=== PATIENT | female | born 1940 | race Caucasian/White ===

== ENCOUNTER 2016-08-18 09:36 | Outpatient (CLI) | payer MEDICARE ==
[2016-08-18 10:01] LABS: #Basophils 0.1 thou/uL (0.0-0.2); #Eosinphils 0.2 thou/uL (0.0-0.7); #Lymphocytes 2.5 thou/uL (1.20-3.40); #Monocytes 0.4 thou/uL (0.11-0.59); #Neutrophils 3.7 thou/uL (1.40-6.50); %Eosinophils 2.6 % (0.0-10.0); %Lymphocytes 36.6 % (21.0-51.0); %Monocytes 6.1 % (0.0-10.0); %Neutrophils 53.6 % (42.0-75.0); Hemoglobin 13.6 g/dL (12.0-16.0); Mean Corpuscular HGB CONC 32.8 g/dL (32.0-36.0); Mean Corpuscular Hemoglobin 28.8 pg (27.0-31.0); Mean Corpuscular Volume 87.6 fl (81.0-99.0); Mean Platelet Volume 6.9 fL (7.4-10.4); Platelet Count 186 thou/uL (130-400); RBC Distribution Width 13.3 % (11.5-14.5); Red Blood Cell (RBC) Count 4.73 mill/uL (4.20-5.40); White Blood Cell (WBC) Count 6.9 thou/uL (4.8-10.8)
[2016-08-18 10:10] LABS: Hemoglobin A1c 7.1 % (4.0-6.0)
[2016-08-18 10:16] LABS: ALT (SGPT) 9 U/L (0-55); AST (SGOT) 14 U/L (5-34); Albumin 3.5 g/dL (3.4-4.8); Alkaline Phosphatase 64 U/L (40-150); Anion Gap 12 mmol/L (10-20); BUN (Urea Nitrogen) 17 mg/dL (9.8-20.1); Bilirubin, Total 0.5 mg/dL (0.2-1.2); Calc. Creatinine Clearance 0 mL/min (70-130); Calcium 9.2 mg/dL (7.8-10.44); Carbon Dioxide 29 mmol/L (23-31); Cardiac Risk 2.2 (Less than 4.5); Chloride 103 mmol/L (98-107); Cholesterol 155 mg/dL (< 200 Desired); Estimated GFR-MDRD 71; Globulin 3.1 g/dL (2.4-3.5); Glucose 245 mg/dL (83-110); HDL Cholesterol 71 mg/dL (>60 Neg Risk); LDL Cholesterol, Calculated 59 mg/dL; Potassium 4.1 mmol/L (3.5-5.1); Protein, Total 6.6 g/dL (5.8-8.1); Sodium 140 mmol/L (136-145); Triglycerides 125 mg/dL (Less than 150)
[2016-08-18 10:56] LABS: Free T4 (Free Thyroxine) 1.33 ng/dL (0.70-1.48); Vitamin D, 25 Hydroxy 37.2 ng/mL (> 30.0)
== END 2016-08-18 09:37 | disposition home or self-care (01) ==
LOC: MADLAB 09:36
PROVIDERS: ATTEND Internal Medicine Endocrinology, Diabetes & Metabolism
DX: E78.2 Mixed hyperlipidemia (principal); E03.9 Hypothyroidism, unspecified; E55.9 Vitamin D deficiency, unspecified; E11.69 Type 2 diabetes mellitus with other specified complication
CPT/HCPCS: 36415; 80053; 80061; 82306; 83036; 84439; 84443; 85025

== ENCOUNTER 2017-01-02 08:22 | Outpatient (CLI) | payer MEDICARE ==
[2017-01-02 09:25] LABS: Hemoglobin A1c 6.5 % (4.0-6.0)
[2017-01-02 09:26] LABS: #Basophils 0.1 thou/uL (0.0-0.2); #Eosinphils 0.2 thou/uL (0.0-0.7); #Lymphocytes 2.7 thou/uL (1.20-3.40); #Monocytes 0.4 thou/uL (0.11-0.59); #Neutrophils 2.5 thou/uL (1.40-6.50); %Basophils 1.3 % (0.0-1.0); %Eosinophils 3.4 % (0.0-10.0); %Lymphocytes 45.2 % (21.0-51.0); %Monocytes 7.2 % (0.0-10.0); %Neutrophils 42.9 % (42.0-75.0); Hemoglobin 13.4 g/dL (12.0-16.0); Mean Corpuscular Hemoglobin 29.7 pg (27.0-31.0); Mean Corpuscular Volume 92.7 fl (81.0-99.0); Mean Platelet Volume 7.6 fL (7.4-10.4); Platelet Count 203 thou/uL (130-400); RBC Distribution Width 11.6 % (11.5-14.5); Red Blood Cell (RBC) Count 4.52 mill/uL (4.20-5.40); White Blood Cell (WBC) Count 5.9 thou/uL (4.8-10.8)
[2017-01-02 09:36] LABS: ALT (SGPT) 11 U/L (8-55); AST (SGOT) 20 U/L (5-34); Albumin 3.6 g/dL (3.4-4.8); Alkaline Phosphatase 57 U/L (40-150); Anion Gap 14 mmol/L (10-20); BUN (Urea Nitrogen) 20 mg/dL (9.8-20.1); Bilirubin, Total 0.6 mg/dL (0.2-1.2); Calc. Creatinine Clearance 0 mL/min (70-130); Carbon Dioxide 28 mmol/L (23-31); Cardiac Risk 2.9 (Less than 4.5); Chloride 104 mmol/L (98-107); Cholesterol 121 mg/dl (< 200 Desired); Estimated GFR-MDRD 57; Globulin 3.6 g/dL (2.4-3.5); Glucose 101 mg/dL (83-110); HDL Cholesterol 42 mg/dL (>60 Neg Risk); LDL Cholesterol, Calculated 50 mg/dL; Potassium 4.4 mmol/L (3.5-5.1); Protein, Total 7.2 g/dL (6.0-8.3); Sodium 142 mmol/L (136-145); Triglycerides 145 mg/dL (Less than 150)
[2017-01-02 09:51] LABS: Free T4 (Free Thyroxine) 1.42 ng/dL (0.70-1.48); Thyroid Stimulating Hormone 0.2458 uIU/mL (0.35-4.94)
[2017-01-02 11:31] LABS: Vitamin D, 25 Hydroxy 53.8 ng/ml (> 30.0)
[2017-01-07 04:15] LABS: Endomysial IgA Autoabs Negative (Negative); Immunoglobulin A 401 mg/dL (64-422); t-Transglutaminase (TTG) IgA <2 U/mL (0-3)
== END 2017-01-02 08:23 ==
LOC: MADLAB 08:22
PROVIDERS: ATTEND Internal Medicine Endocrinology, Diabetes & Metabolism
DX: E78.2 Mixed hyperlipidemia (principal); E03.9 Hypothyroidism, unspecified; E55.9 Vitamin D deficiency, unspecified; E11.69 Type 2 diabetes mellitus with other specified complication; Z83.79 Family history of other diseases of the digestive system
CPT/HCPCS: 36415; 80053; 80061; 82306; 82784; 83036; 83516; 84439; 84443; 85025; 86255

== ENCOUNTER 2020-03-03 18:58 | Inpatient (IN) | payer MEDICARE ==
[2020-03-05] MEDS ORDERED: Acetaminophen 325 MG TAB PO PRN (17:06)
[2020-03-05] MEDS ORDERED: Dextrose 50% Abboject 50 ML SYRINGE SLOW IVP PRN (17:12)
[2020-03-05] MEDS: HumaLOG 300 UNITS/3 ML VIAL SC PRN (21:05)
[2020-03-05] MEDS: Gabapentin 300 MG CAP PO SCH (21:06)
[2020-03-05] MEDS: hydrOXYzine 25 MG TAB PO SCH (21:06)
--- NOTE | 2020-03-06 03:15 | HP ---
PRIMARY CARE PHYSICIAN: Steve Cash DO REASON FOR ADMISSION: For skilled rehabilitation at [facility] due to hypoglycemia resulting in acute metabolic encephalopathy and physical deconditioning. HISTORY OF PRESENT ILLNESS: The patient is a 79-year-old female with a history of diabetes type 2, coronary artery disease, status post stent placement, long-term insulin use, hypothyroidism, and urinary incontinence. The patient lives in her home with her , and she was brought to the emergency room by EMS due to altered mental status, abdominal pain, and nausea. The patient was discovered to have a glucose of 17 and received an amp of D50 and infusion of D10 at which point the glucose increased to over 200. The patient was subsequently admitted to the hospital. She initially got IV vancomycin and cefepime in the emergency room after initial concern for a potential sepsis picture. However, no focal source was identified, and the IV antibiotics were discontinued. The patient was continued on D50 and D10 NS IV fluids and mental status progressively improved back to normal. During hospitalization, her hemoglobin A1c on February 25 was noted to be 7.8. TSH was low at 0.0044 and a free T4 of 1.28. The patient prior to admission stated she was on insulin 75/25 mixture of 53 units in the morning and 42 units in the evening. The patient's hypoglycemia was noted to be most likely secondary to excessive insulin use and insulin was changed to 5 units of glargine and sliding scale Humalog. The patient progressively improved, and she was able to fully recover back to baseline mental status, and she was noted to be physically deconditioned and evaluated by Physical Therapy who recommended an inpatient acute rehabilitation to help the patient's strength and improvement prior to discharge back to her home as she lives with her elderly . The patient initially disagreed and wanted to be discharged home with home health, but she changed her mind after realizing that they would only be coming to her home for a limited amount of visits due to her current weakness. The decision was made in agreement with the patient's family to transfer to [facility] bed for skilled rehabilitation prior to discharge back to her home. Upon evaluation of the patient today, she was happy to be in facility. Her daughter was visiting her during my evaluation, and the patient was excited to start therapy and states she was wheelchair bound prior to hospitalization, but her goal in rehab is to be able to get out of wheelchair. The patient also complains of chronic history of urinary incontinence. She said she has had a history of 2 bladder surgeries. They were not successful, so she does not want to go back to her past urologist, and she wants it taken care of. I politely explained to the patient that during this rehabilitation process, that might not be accomplished and the patient would be advised to follow up with a new urologist as an outpatient by recommendation of her primary care physician, Dr. Steve Cash. PAST MEDICAL HISTORY: Diabetes type 2, insulin requiring, diagnosed in her 20s per the patient. Coronary artery disease, status post cardiac stent placement. Urinary incontinence, hypertension, hyperlipidemia, hypothyroidism, peripheral neuropathy. PAST SURGICAL HISTORY: Status post right knee surgery, status post ear surgery, status post cardiac stent placement, status post hysterectomy, status post appendectomy, status post 2 bladder surgeries per patient. PAST CODE STATUS: The patient is a full code. ALLERGIES: CODEINE, MORPHINE, AND PENICILLIN. MEDICATIONS: Ranolazine (Ranexa) 1000 b.i.d., gabapentin 300 q.h.s., Lantus 5 units daily, Humalog sliding scale mild p.r.n., Imdur ER 30 daily, levothyroxine 100 daily, Cozaar 50 mg daily, metoprolol 50 mg daily, Myrbetriq 25 mg ER daily, Crestor 50 mg daily, Zofran 4 mg q.6 h. p.r.n. nausea and vomiting, hydroxyzine 25 t.i.d. REVIEW OF SYSTEMS: CONSTITUTIONAL: Negative for weight loss, weight gain. Positive for generalized weakness. SKIN: Negative for rash or itching. EYES: Negative for double vision or pain. ENT: Negative for nosebleed, pain, tenderness ENT. CARDIOVASCULAR: Negative for chest pain, palpitation, shortness of breath on exertion, or orthopnea. RESPIRATORY: Negative for shortness of breath, cough, wheezing, hemoptysis. GASTROINTESTINAL: Positive for nausea. Negative for abdominal pain, diarrhea, or constipation. GENITOURINARY: Positive for urinary incontinence. Negative for burning, nocturia, or hematuria. MUSCULOSKELETAL: Negative for pain and swelling. NEUROLOGICAL: The patient complains of gait instability and generalized weakness. PSYCHIATRY: Negative for hallucination or delusions. PHYSICAL EXAMINATION: VITAL SIGNS: Temperature 97.5, pulse 57, respirations 19, blood pressure 156/53, O2 saturation 100% on room air. GENERAL: The patient is alert, awake, and oriented x3. She is very talkative, and she is in no apparent distress, sitting by the side of her bed with her daughter visiting her. HEENT: Pupils round, equal, reactive to light and accommodation. Extraocular muscles are intact. No scleral icterus. No conjunctival injection. Nares are patent. Oral mucous membrane moist. NECK: Supple. No JVD. No adenopathy. No thyromegaly or bruit. CHEST: Clear to auscultation bilaterally. CARDIOVASCULAR: S1 and S2 without any murmurs, gallops, or rubs. ABDOMEN: Positive bowel sounds. Soft, nontender, nondistended. No rebound. No guarding. EXTREMITIES: No edema or swelling. Capillary refill less than 2 seconds. NEUROLOGIC: Cranial nerves 2 through 12 grossly intact. Gait instability and slow. ASSESSMENT: 1. Physical deconditioning. 2. Diabetes type 2, requiring insulin. 3. Hypothyroidism. 4. Hypertension. 5. Generalized weakness. 6. Gait instability. 7. Urinary incontinence. PLAN: The patient is a 79-year-old female being admitted to [facility]. We will consult Physical Therapy and Occupational Therapy to help with activities of daily living. We will consult Physical Therapy for strengthening, gait, balance, and improved help with ambulation. We will resume all patient's home medications. We will do Accu-Cheks a.c. and h.s. We will place the patient on mild sliding scale and continue on Lantus 5 units b.i.d. adjust accordingly. We will educate the patient on the status of her diabetes. We will monitor the patient closely. We will place the patient on GI prophylaxis with Pepcid b.i.d. and DVT prophylaxis with SCDs. We will encourage the patient to help at least getting to goals and plan of care. ESTIMATED LENGTH OF STAY: Two to three weeks. Job ID: [id number] [facility]
[2020-03-06] MEDS: Levothyroxine Sodium 100 MCG TAB PO SCH (05:15)
[2020-03-06] MEDS: Losartan 25 MG TAB PO SCH (08:47)
[2020-03-06] MEDS: Metoprolol Tartrate 50 MG TAB PO SCH (08:47)
[2020-03-06] MEDS: hydrOXYzine 25 MG TAB PO SCH ×3 (08:47→20:21)
[2020-03-06] MEDS: Lantus 1000 UNITS/10 ML VIAL SC SCH (08:48)
[2020-03-06] MEDS: Famotidine 20 MG TAB PO SCH (08:48)
[2020-03-06] MEDS: HumaLOG 300 UNITS/3 ML VIAL SC PRN ×2 (12:00→18:02)
[2020-03-06] MEDS: Ondansetron ODT 4 MG TAB PO PRN (14:33)
[2020-03-06] MEDS: Gabapentin 300 MG CAP PO SCH (20:21)
[2020-03-06] MEDS: Rosuvastatin 10 MG TAB PO SCH ×2 (20:26→20:27)
[2020-03-06] MEDS: Bisacodyl 5 MG TAB PO PRN (21:19)
[2020-03-07] MEDS: Levothyroxine Sodium 100 MCG TAB PO SCH (05:41)
[2020-03-07] MEDS: Famotidine 20 MG TAB PO SCH (08:58)
[2020-03-07] MEDS: hydrOXYzine 25 MG TAB PO SCH ×3 (08:58→20:02)
[2020-03-07] MEDS: Metoprolol Tartrate 50 MG TAB PO SCH (08:59)
[2020-03-07] MEDS: Losartan 25 MG TAB PO SCH (08:59)
[2020-03-07] MEDS: Lantus 1000 UNITS/10 ML VIAL SC SCH (09:00)
[2020-03-07] MEDS: HumaLOG 300 UNITS/3 ML VIAL SC PRN ×2 (12:29→20:30)
[2020-03-07] MEDS: Rosuvastatin 10 MG TAB PO SCH (20:02)
[2020-03-07] MEDS: Gabapentin 300 MG CAP PO SCH (20:02)
[2020-03-08] MEDS: Levothyroxine Sodium 100 MCG TAB PO SCH (06:56)
[2020-03-08] MEDS: Losartan 25 MG TAB PO SCH (08:32)
[2020-03-08] MEDS: hydrOXYzine 25 MG TAB PO SCH ×3 (08:32→20:02)
[2020-03-08] MEDS: Lantus 1000 UNITS/10 ML VIAL SC SCH (08:32)
[2020-03-08] MEDS: Famotidine 20 MG TAB PO SCH (08:32)
[2020-03-08] MEDS: Metoprolol Tartrate 50 MG TAB PO SCH (08:33)
[2020-03-08] MEDS: HumaLOG 300 UNITS/3 ML VIAL SC PRN (12:35)
[2020-03-08] MEDS: Gabapentin 300 MG CAP PO SCH (20:02)
[2020-03-08] MEDS: Rosuvastatin 10 MG TAB PO SCH (20:02)
[2020-03-09] MEDS: Levothyroxine Sodium 100 MCG TAB PO SCH (05:39)
[2020-03-09] MEDS ORDERED: Losartan 25 MG TAB ONE (07:29)
[2020-03-09] MEDS: Losartan 25 MG TAB PO SCH (08:26)
[2020-03-09] MEDS: Famotidine 20 MG TAB PO SCH (08:26)
[2020-03-09] MEDS: hydrOXYzine 25 MG TAB PO SCH ×3 (08:26→20:00)
[2020-03-09] MEDS: Metoprolol Tartrate 50 MG TAB PO SCH (08:26)
[2020-03-09] MEDS: Lantus 1000 UNITS/10 ML VIAL SC SCH (08:27)
[2020-03-09] MEDS: HumaLOG 300 UNITS/3 ML VIAL SC PRN ×2 (13:29→17:01)
[2020-03-09] MEDS: Gabapentin 300 MG CAP PO SCH (20:00)
[2020-03-09] MEDS: Rosuvastatin 10 MG TAB PO SCH (20:01)
[2020-03-10] MEDS: Levothyroxine Sodium 100 MCG TAB PO SCH (06:08)
[2020-03-10] MEDS: Losartan 25 MG TAB PO SCH (09:03)
[2020-03-10] MEDS: Metoprolol Tartrate 50 MG TAB PO SCH (09:04)
[2020-03-10] MEDS: Famotidine 20 MG TAB PO SCH (09:04)
[2020-03-10] MEDS: hydrOXYzine 25 MG TAB PO SCH ×3 (09:04→20:19)
[2020-03-10] MEDS: Lantus 1000 UNITS/10 ML VIAL SC SCH (09:05)
[2020-03-10] MEDS: HumaLOG 300 UNITS/3 ML VIAL SC PRN ×2 (12:09→17:09)
[2020-03-10] MEDS: Bisacodyl 5 MG TAB PO PRN (20:19)
[2020-03-10] MEDS: Gabapentin 300 MG CAP PO SCH (20:20)
[2020-03-10] MEDS: Rosuvastatin 10 MG TAB PO SCH (20:22)
[2020-03-11] MEDS: Levothyroxine Sodium 100 MCG TAB PO SCH (05:48)
[2020-03-11] MEDS: Losartan 25 MG TAB PO SCH (09:20)
[2020-03-11] MEDS: Famotidine 20 MG TAB PO SCH (09:20)
[2020-03-11] MEDS: hydrOXYzine 25 MG TAB PO SCH ×3 (09:20→20:41)
[2020-03-11] MEDS: Metoprolol Tartrate 50 MG TAB PO SCH (09:21)
[2020-03-11] MEDS: Lantus 1000 UNITS/10 ML VIAL SC SCH (09:22)
[2020-03-11] MEDS: HumaLOG 300 UNITS/3 ML VIAL SC PRN ×2 (12:05→17:03)
[2020-03-11] MEDS: Gabapentin 300 MG CAP PO SCH (20:41)
[2020-03-11] MEDS: Rosuvastatin 10 MG TAB PO SCH (20:41)
[2020-03-12] MEDS: Levothyroxine Sodium 100 MCG TAB PO SCH (06:00)
[2020-03-12] MEDS: Famotidine 20 MG TAB PO SCH (07:56)
[2020-03-12] MEDS: hydrOXYzine 25 MG TAB PO SCH ×3 (07:57→19:44)
[2020-03-12] MEDS: Losartan 25 MG TAB PO SCH (07:57)
[2020-03-12] MEDS: Metoprolol Tartrate 50 MG TAB PO SCH (07:58)
[2020-03-12] MEDS: Lantus 1000 UNITS/10 ML VIAL SC SCH (07:58)
[2020-03-12] MEDS: HumaLOG 300 UNITS/3 ML VIAL SC PRN ×2 (13:38→21:03)
[2020-03-12] MEDS: Gabapentin 300 MG CAP PO SCH (19:44)
[2020-03-12] MEDS: Rosuvastatin 10 MG TAB PO SCH (19:45)
[2020-03-13] MEDS: Levothyroxine Sodium 100 MCG TAB PO SCH (05:59)
[2020-03-13 06:23] LABS: Albumin 2.9 g/dL (3.4-4.8); Calcium 8.6 mg/dL (7.8-10.44); Chloride 104 mmol/L (98-107); Globulin 2.6 g/dL (2.4-3.5); Glucose 132 mg/dL (83-110); Potassium 4.3 mmol/L (3.5-5.1); Protein, Total 5.5 g/dL (6.0-8.3); Sodium 144 mmol/L (136-145)
[2020-03-13 06:31] LABS: #Basophils 0.1 thou/uL (0.0-0.2); #Eosinphils 0.3 thou/uL (0.0-0.7); #Monocytes 0.3 thou/uL (0.11-0.59); #Neutrophils 2.7 thou/uL (1.40-6.50); %Basophils 1.7 % (0.0-1.0); %Eosinophils 4.4 % (0.0-10.0); %Monocytes 6.3 % (0.0-10.0); %Neutrophils 50.7 % (42.0-75.0); Hemoglobin 10.8 g/dL (12.0-16.0); Mean Corpuscular HGB CONC 32.2 g/dL (32.0-36.0); Mean Corpuscular Hemoglobin 29.5 pg (27.0-31.0); Mean Corpuscular Volume 91.8 fL (78.0-98.0); Mean Platelet Volume 8.5 fL (7.4-10.4); Platelet Count 117 thou/uL (130-400); Platelet Morphology Comment Appears Decreased; RBC Distribution Width 13.3 % (11.5-14.5); RBC Morphology Normal; White Blood Cell (WBC) Count 5.4 thou/uL (4.8-10.8)
[2020-03-13 06:32] LABS: MDiff Complete? YES
[2020-03-13 07:44] LABS: ALT (SGPT) 10 U/L (8-55); AST (SGOT) 15 U/L (5-34); Alkaline Phosphatase 51 U/L (40-110); BUN (Urea Nitrogen) 13 mg/dL (9.8-20.1); Bilirubin, Total 0.7 mg/dL (0.2-1.2); Calc. Creatinine Clearance 64 mL/min (70-130); Carbon Dioxide 30 mmol/L (23-31); Estimated GFR-MDRD 68
[2020-03-13 07:45] LABS: Anion Gap 14 mmol/L (10-20); Magnesium 1.4 mg/dL (1.6-2.6)
[2020-03-13] MEDS: hydrOXYzine 25 MG TAB PO SCH ×3 (07:54→19:38)
[2020-03-13] MEDS: Famotidine 20 MG TAB PO SCH (07:55)
[2020-03-13] MEDS: Lantus 1000 UNITS/10 ML VIAL SC SCH (07:55)
[2020-03-13] MEDS: Losartan 25 MG TAB PO SCH (07:55)
[2020-03-13] MEDS: Metoprolol Tartrate 50 MG TAB PO SCH (07:55)
[2020-03-13] MEDS: Ondansetron ODT 4 MG TAB PO PRN ×2 (12:05→17:53)
[2020-03-13] MEDS ORDERED: Magnesium Oxide 400 MG TAB PO SCH (14:45)
[2020-03-13] MEDS: Rosuvastatin 10 MG TAB PO SCH (19:36)
[2020-03-13] MEDS: Gabapentin 300 MG CAP PO SCH (19:38)
[2020-03-14] MEDS: Levothyroxine Sodium 88 MCG TAB PO SCH (05:14)
[2020-03-14] MEDS: Famotidine 20 MG TAB PO SCH (08:14)
[2020-03-14] MEDS: hydrOXYzine 25 MG TAB PO SCH ×3 (08:14→20:58)
[2020-03-14] MEDS: Metoprolol Tartrate 50 MG TAB PO SCH (08:14)
[2020-03-14] MEDS: Magnesium Oxide 400 MG TAB PO SCH (08:15)
[2020-03-14] MEDS: Losartan 25 MG TAB PO SCH (08:15)
[2020-03-14] MEDS: Lantus 1000 UNITS/10 ML VIAL SC SCH (08:16)
[2020-03-14] MEDS: Ondansetron ODT 4 MG TAB PO PRN ×2 (11:19→20:09)
[2020-03-14] MEDS: HumaLOG 300 UNITS/3 ML VIAL SC PRN ×2 (12:42→18:01)
[2020-03-14] MEDS: Gabapentin 300 MG CAP PO SCH (20:57)
[2020-03-14] MEDS: Rosuvastatin 10 MG TAB PO SCH (20:59)
[2020-03-15] MEDS: Levothyroxine Sodium 88 MCG TAB PO SCH (06:02)
[2020-03-15] MEDS: Ondansetron ODT 4 MG TAB PO PRN ×2 (08:14→20:47)
[2020-03-15] MEDS: hydrOXYzine 25 MG TAB PO SCH ×3 (11:17→20:50)
[2020-03-15] MEDS: Famotidine 20 MG TAB PO SCH ×2 (11:17→14:23)
[2020-03-15] MEDS: Metoprolol Tartrate 50 MG TAB PO SCH ×2 (11:18→14:24)
[2020-03-15] MEDS: Losartan 25 MG TAB PO SCH ×2 (11:18→14:23)
[2020-03-15] MEDS: Lantus 1000 UNITS/10 ML VIAL SC SCH ×2 (11:18→14:26)
[2020-03-15] MEDS: Magnesium Oxide 400 MG TAB PO SCH ×2 (11:18→14:24)
[2020-03-15] MEDS: Bisacodyl 5 MG TAB PO PRN (14:23)
[2020-03-15] MEDS ORDERED: Zolpidem Tartrate 5 MG TAB PO PRN (16:56)
[2020-03-15] MEDS: HumaLOG 300 UNITS/3 ML VIAL SC PRN (17:11)
[2020-03-15] MEDS: Gabapentin 300 MG CAP PO SCH (20:49)
[2020-03-15] MEDS: Rosuvastatin 10 MG TAB PO SCH (20:50)
[2020-03-15] MEDS: Promethazine 25 MG TAB PO SCH (21:49)
--- NOTE | 2020-03-15 23:32 | RAD ---
Exam: 1 view abdomen HISTORY: Emesis. FINDINGS: Atherosclerosis of a nonaneurysmal aorta Nonspecific bowel gas pattern. No suspicious densities in the abdomen or pelvis. No pneumoperitoneum on supine projection. No acute osseous abnormalities. IMPRESSION: Nonspecific bowel gas pattern. Additional imaging as warranted.
[2020-03-16] MEDS: Promethazine 25 MG TAB PO PRN (03:35)
[2020-03-16] MEDS: Levothyroxine Sodium 88 MCG TAB PO SCH (05:07)
[2020-03-16] MEDS: Metoprolol Tartrate 50 MG TAB PO SCH (09:23)
[2020-03-16] MEDS: Famotidine 20 MG TAB PO SCH (09:23)
[2020-03-16] MEDS: Lantus 1000 UNITS/10 ML VIAL SC SCH (09:24)
[2020-03-16] MEDS: Losartan 25 MG TAB PO SCH (09:24)
[2020-03-16] MEDS: hydrOXYzine 25 MG TAB PO SCH ×2 (09:24→15:21)
[2020-03-16] MEDS: Magnesium Oxide 400 MG TAB PO SCH (09:24)
--- NOTE | 2020-03-16 12:32 | CT ---
CT ABDOMEN AND PELVIS PERFORMED WITH CONTRAST ENHANCEMENT: HISTORY: Abdominal pain, nausea, and vomiting. History of appendectomy and hysterectomy. FINDINGS: There are small bilateral pleural effusions. There is linear change in the lung bases which could re present scarring. No confluent infiltrative process. Fatty change of the liver. The spleen, pancreas, and gallbladder regions appear unremarkable. The g allbladder is mildly distended. Right and left adrenal glands and right and left kidneys are normal in size. There is no significant periaortic or mesenteric adenopathy. Extensive atherosclerotic change within a normal caliber aorta . CT OF PELVIS PERFORMED WITH CONTRAST ENHANCEMENT: The bladder is distended. No adenopathy, mass, or free fluid. No inflammatory change. Diffuse muscle atrophy is noted. There are arthritic changes of the spine. Compression changes, age indeterminate, of the T12 vertebral body are noted. This was noted on previous exams. IMPRESSION: 1. Small bilateral pleural effusions with linear change in the bases suggestive of scar. 2. Fatty change of the liver. 3. No acute intraabdominal abnormalities. POS: SOREN
[2020-03-16] MEDS: Gabapentin 300 MG CAP PO SCH (20:45)
[2020-03-16] MEDS: Rosuvastatin 10 MG TAB PO SCH (20:47)
[2020-03-17] MEDS: Levothyroxine Sodium 88 MCG TAB PO SCH (06:24)
[2020-03-17] MEDS: Famotidine 20 MG TAB PO SCH (09:31)
[2020-03-17] MEDS: Magnesium Oxide 400 MG TAB PO SCH (09:31)
[2020-03-17] MEDS: Losartan 25 MG TAB PO SCH (09:31)
[2020-03-17] MEDS: Metoprolol Tartrate 50 MG TAB PO SCH (09:32)
[2020-03-17] MEDS: Lantus 1000 UNITS/10 ML VIAL SC SCH (09:38)
[2020-03-17] MEDS: Ondansetron ODT 4 MG TAB PO PRN (12:03)
[2020-03-17] MEDS: HumaLOG 300 UNITS/3 ML VIAL SC PRN ×2 (12:04→17:13)
[2020-03-17] MEDS: Promethazine 25 MG TAB PO PRN (19:52)
[2020-03-17] MEDS: Rosuvastatin 10 MG TAB PO SCH (21:07)
[2020-03-17] MEDS: Gabapentin 300 MG CAP PO SCH (21:09)
[2020-03-17] MEDS: hydrOXYzine 25 MG TAB PO SCH (21:10)
[2020-03-18] MEDS: Levothyroxine Sodium 88 MCG TAB PO SCH (05:01)
[2020-03-18] MEDS: Magnesium Oxide 400 MG TAB PO SCH (08:24)
[2020-03-18] MEDS: Losartan 25 MG TAB PO SCH (08:24)
[2020-03-18] MEDS: Famotidine 20 MG TAB PO SCH (08:25)
[2020-03-18] MEDS: Lantus 1000 UNITS/10 ML VIAL SC SCH (08:25)
[2020-03-18] MEDS: Metoprolol Tartrate 50 MG TAB PO SCH (08:25)
[2020-03-18] MEDS: Ondansetron ODT 4 MG TAB PO PRN (13:06)
[2020-03-18] MEDS: Promethazine 25 MG TAB PO PRN (17:17)
[2020-03-19] MEDS: Ondansetron ODT 4 MG TAB PO PRN ×2 (00:21→09:00)
[2020-03-19] MEDS: Gabapentin 300 MG CAP PO SCH ×2 (00:24→20:25)
[2020-03-19] MEDS: hydrOXYzine 25 MG TAB PO SCH ×2 (00:24→20:25)
[2020-03-19] MEDS: Rosuvastatin 10 MG TAB PO SCH ×2 (00:25→20:25)
[2020-03-19] MEDS: Levothyroxine Sodium 88 MCG TAB PO SCH (05:29)
[2020-03-19 07:47] LABS: #Basophils 0.1 thou/uL (0.0-0.2); #Lymphocytes 2.4 thou/uL (1.20-3.40); #Monocytes 0.5 thou/uL (0.11-0.59); #Neutrophils 3.8 thou/uL (1.40-6.50); %Basophils 0.8 % (0.0-1.0); %Eosinophils 0.5 % (0.0-10.0); %Lymphocytes 34.5 % (21.0-51.0); %Monocytes 7.6 % (0.0-10.0); %Neutrophils 56.5 % (42.0-75.0); Hemoglobin 11.6 g/dL (12.0-16.0); Mean Corpuscular HGB CONC 30.8 g/dL (32.0-36.0); Mean Corpuscular Hemoglobin 28.4 pg (27.0-31.0); Mean Corpuscular Volume 92.2 fL (78.0-98.0); Mean Platelet Volume 7.7 fL (7.4-10.4); Platelet Count 191 thou/uL (130-400); RBC Distribution Width 13.2 % (11.5-14.5); Red Blood Cell (RBC) Count 4.08 mill/uL (4.20-5.40); White Blood Cell (WBC) Count 6.8 thou/uL (4.8-10.8)
[2020-03-19 07:55] LABS: ALT (SGPT) 9 U/L (8-55); AST (SGOT) 15 U/L (5-34); Albumin 3.4 g/dL (3.4-4.8); Alkaline Phosphatase 49 U/L (40-110); Anion Gap 19 mmol/L (10-20); BUN (Urea Nitrogen) 19 mg/dL (9.8-20.1); Bilirubin, Total 0.8 mg/dL (0.2-1.2); Calc. Creatinine Clearance 54 mL/min (70-130); Calcium 9.2 mg/dL (7.8-10.44); Carbon Dioxide 28 mmol/L (23-31); Chloride 100 mmol/L (98-107); Estimated GFR-MDRD 56; Globulin 2.7 g/dL (2.4-3.5); Glucose 147 mg/dL (83-110); Magnesium 1.6 mg/dL (1.6-2.6); Potassium 4.5 mmol/L (3.5-5.1); Protein, Total 6.1 g/dL (6.0-8.3); Sodium 142 mmol/L (136-145)
[2020-03-19 08:08] LABS: Bilirubin Small (Negative); Blood, Urine Negative (Negative); Clarity Clear (Clear); Glucose, Urine (Dipstick) 250 mg/dL (Negative); Ketone, Urine 15 mg/dL (Negative); Leukocyte Negative (Negative); Nitrite Negative (Negative); Protein, Urine (Dipstick) Negative (Neg-Trace); pH, Urine 6.5 (5.0-9.0)
[2020-03-19 08:09] LABS: RBC/HPF 0-3 HPF (0-3); Urine Culture Reflex No No; WBC/HPF 0-3 HPF (0-3)
[2020-03-19 08:10] LABS: Bacteria/HPF Rare-Few HPF (None Seen); Squamous Epithelial 0-3 HPF (0-3)
[2020-03-19] MEDS: Metoprolol Tartrate 50 MG TAB PO SCH (09:01)
[2020-03-19] MEDS: Magnesium Oxide 400 MG TAB PO SCH (09:01)
[2020-03-19] MEDS: Losartan 25 MG TAB PO SCH (09:01)
[2020-03-19] MEDS: Famotidine 20 MG TAB PO SCH (09:01)
[2020-03-19] MEDS: Lantus 1000 UNITS/10 ML VIAL SC SCH (09:02)
--- NOTE | 2020-03-19 09:48 | CT ---
CT BRAIN WITHOUT CONTRAST: HISTORY:Confusion with hallucinations, new onset COMPARISON:02/25/2020 FINDINGS: There are foci of decreased attenuation in the periventricular white matter, consistent with chronic small vessel ischemic disease. No evidence of acute infarct, hemorrhage, midline shift or abnormal extra-axial fluid collections is seen. The ventricular size is appropriate and the basilar cisterns are patent. The bony calvarium is intact. There is mucosal disease in the paranasal sinuses. IMPRESSION: No CT evidence of acute intracranial process.
[2020-03-19] MEDS ORDERED: Iopamidol 370 76% 100 ML VIAL IV ONE (09:53)
[2020-03-20] MEDS: Levothyroxine Sodium 88 MCG TAB PO SCH (05:10)
[2020-03-20] MEDS: Losartan 25 MG TAB PO SCH (09:34)
[2020-03-20] MEDS: Magnesium Oxide 400 MG TAB PO SCH (09:34)
[2020-03-20] MEDS: risperiDONE 0.5 MG TAB PO SCH (09:34)
[2020-03-20] MEDS: Famotidine 20 MG TAB PO SCH (09:34)
[2020-03-20] MEDS: Lantus 1000 UNITS/10 ML VIAL SC SCH (09:35)
[2020-03-20] MEDS: Metoprolol Tartrate 50 MG TAB PO SCH (09:35)
[2020-03-20 20:18] LABS: Bilirubin Small (Negative); Blood, Urine Negative (Negative); Glucose, Urine (Dipstick) 250 mg/dL (Negative); Ketone, Urine 15 mg/dL (Negative); Leukocyte Negative (Negative); Nitrite Positive (Negative); Protein, Urine (Dipstick) Negative (Neg-Trace); Specific Gravity, Urine 1.025 (1.005-1.030); pH, Urine 5.5 (5.0-9.0)
[2020-03-20 20:20] LABS: Clarity Clear (Clear)
[2020-03-20 20:21] LABS: Urine Culture Reflex No No
[2020-03-20 20:27] LABS: RBC/HPF None Seen HPF (0-3)
[2020-03-20 20:28] LABS: Bacteria/HPF Rare-Few HPF (None Seen); WBC/HPF 0-3 HPF (0-3)
[2020-03-20] MEDS: Gabapentin 300 MG CAP PO SCH (20:51)
[2020-03-20] MEDS: Rosuvastatin 10 MG TAB PO SCH (20:51)
[2020-03-20] MEDS: hydrOXYzine 25 MG TAB PO SCH (20:51)
[2020-03-21] MEDS: Ondansetron ODT 4 MG TAB PO PRN ×2 (02:54→15:30)
[2020-03-21] MEDS: Levothyroxine Sodium 88 MCG TAB PO SCH (05:51)
[2020-03-21] MEDS: Famotidine 20 MG TAB PO SCH (09:06)
[2020-03-21] MEDS: Magnesium Oxide 400 MG TAB PO SCH (09:07)
[2020-03-21] MEDS: Losartan 25 MG TAB PO SCH (09:07)
[2020-03-21] MEDS: Metoprolol Tartrate 50 MG TAB PO SCH (09:07)
[2020-03-21] MEDS: risperiDONE 0.5 MG TAB PO SCH (09:07)
[2020-03-21] MEDS: Lantus 1000 UNITS/10 ML VIAL SC SCH (09:11)
[2020-03-21] MEDS: HumaLOG 300 UNITS/3 ML VIAL SC PRN ×2 (12:41→17:03)
[2020-03-21] MEDS: Bisacodyl 5 MG TAB PO PRN ×2 (15:31→17:01)
[2020-03-21] MEDS: Promethazine 25 MG TAB PO PRN (17:01)
[2020-03-21] MEDS: Gabapentin 300 MG CAP PO SCH (21:51)
[2020-03-21] MEDS: Rosuvastatin 10 MG TAB PO SCH (21:51)
[2020-03-21] MEDS: hydrOXYzine 25 MG TAB PO SCH (21:52)
[2020-03-22] MEDS: Promethazine 25 MG TAB PO PRN (01:04)
[2020-03-22] MEDS: Levothyroxine Sodium 88 MCG TAB PO SCH (05:57)
[2020-03-22] MEDS: Losartan 25 MG TAB PO SCH (07:56)
[2020-03-22] MEDS: Magnesium Oxide 400 MG TAB PO SCH (07:57)
[2020-03-22] MEDS: risperiDONE 0.5 MG TAB PO SCH (07:57)
[2020-03-22] MEDS: Metoprolol Tartrate 50 MG TAB PO SCH (07:57)
[2020-03-22] MEDS: Famotidine 20 MG TAB PO SCH (07:57)
[2020-03-22 11:18] VITALS: BMI 28.8
[2020-03-22] MEDS: HumaLOG 300 UNITS/3 ML VIAL SC PRN (17:30)
[2020-03-22] MEDS: Rosuvastatin 10 MG TAB PO SCH (20:49)
[2020-03-22] MEDS: Gabapentin 300 MG CAP PO SCH (20:50)
[2020-03-22] MEDS: hydrOXYzine 25 MG TAB PO SCH (20:50)
[2020-03-23] MEDS: Levothyroxine Sodium 88 MCG TAB PO SCH (06:03)
[2020-03-23] MEDS: risperiDONE 0.5 MG TAB PO SCH (08:36)
[2020-03-23] MEDS: Losartan 25 MG TAB PO SCH (08:36)
[2020-03-23] MEDS: Famotidine 20 MG TAB PO SCH (08:36)
[2020-03-23] MEDS: Magnesium Oxide 400 MG TAB PO SCH (08:36)
[2020-03-23] MEDS: Metoprolol Tartrate 50 MG TAB PO SCH (08:37)
[2020-03-23 10:00] LABS: ALT (SGPT) 9 U/L (8-55); AST (SGOT) 21 U/L (5-34); Albumin 3.2 g/dL (3.4-4.8); Alkaline Phosphatase 52 U/L (40-110); Anion Gap 17 mmol/L (10-20); BUN (Urea Nitrogen) 15 mg/dL (9.8-20.1); Bilirubin, Total 0.8 mg/dL (0.2-1.2); Calc. Creatinine Clearance 61 mL/min (70-130); Calcium 8.8 mg/dL (7.8-10.44); Carbon Dioxide 27 mmol/L (23-31); Chloride 100 mmol/L (98-107); Estimated GFR-MDRD 65; Globulin 2.9 g/dL (2.4-3.5); Glucose 167 mg/dL (83-110); Magnesium 1.6 mg/dL (1.6-2.6); Potassium 4.3 mmol/L (3.5-5.1); Protein, Total 6.1 g/dL (6.0-8.3); Sodium 140 mmol/L (136-145)
[2020-03-23 10:16] LABS: #Eosinphils 0.2 thou/uL (0.0-0.7); #Lymphocytes 2.1 thou/uL (1.20-3.40); #Monocytes 0.6 thou/uL (0.11-0.59); #Neutrophils 3.6 thou/uL (1.40-6.50); %Basophils 0.7 % (0.0-1.0); %Eosinophils 3.7 % (0.0-10.0); %Lymphocytes 31.4 % (21.0-51.0); %Monocytes 8.4 % (0.0-10.0); %Neutrophils 55.7 % (42.0-75.0); Hemoglobin 12.2 g/dL (12.0-16.0); Mean Corpuscular HGB CONC 32.1 g/dL (32.0-36.0); Mean Corpuscular Hemoglobin 29.3 pg (27.0-31.0); Mean Corpuscular Volume 91.2 fL (78.0-98.0); Mean Platelet Volume 7.7 fL (7.4-10.4); Platelet Count 189 thou/uL (130-400); RBC Distribution Width 13.2 % (11.5-14.5); Red Blood Cell (RBC) Count 4.17 mill/uL (4.20-5.40); White Blood Cell (WBC) Count 6.5 thou/uL (4.8-10.8)
[2020-03-23] MEDS: Gabapentin 300 MG CAP PO SCH (20:16)
[2020-03-23] MEDS: Rosuvastatin 10 MG TAB PO SCH (20:17)
[2020-03-23] MEDS: hydrOXYzine 25 MG TAB PO SCH (20:17)
[2020-03-24] MEDS: Levothyroxine Sodium 88 MCG TAB PO SCH (05:34)
[2020-03-24] MEDS: risperiDONE 0.5 MG TAB PO SCH ×2 (09:04→11:59)
[2020-03-24] MEDS: Metoprolol Tartrate 50 MG TAB PO SCH ×2 (09:04→11:59)
[2020-03-24] MEDS: Losartan 25 MG TAB PO SCH ×2 (09:05→11:58)
[2020-03-24] MEDS: Magnesium Oxide 400 MG TAB PO SCH ×2 (09:05→11:59)
[2020-03-24] MEDS: hydrOXYzine 25 MG TAB PO SCH (20:15)
[2020-03-24] MEDS: Rosuvastatin 10 MG TAB PO SCH (20:15)
[2020-03-24] MEDS: Gabapentin 300 MG CAP PO SCH (20:15)
[2020-03-25] MEDS: Levothyroxine Sodium 88 MCG TAB PO SCH (05:20)
[2020-03-25] MEDS: Losartan 25 MG TAB PO SCH (09:06)
[2020-03-25] MEDS: Magnesium Oxide 400 MG TAB PO SCH (09:07)
[2020-03-25] MEDS: Metoprolol Tartrate 50 MG TAB PO SCH (09:07)
[2020-03-25] MEDS: risperiDONE 0.5 MG TAB PO SCH (09:07)
[2020-03-25] MEDS: HumaLOG 300 UNITS/3 ML VIAL SC PRN (12:01)
[2020-03-25] MEDS: Rosuvastatin 10 MG TAB PO SCH (20:35)
[2020-03-25] MEDS: hydrOXYzine 25 MG TAB PO SCH (20:35)
[2020-03-25] MEDS: Gabapentin 300 MG CAP PO SCH (20:35)
[2020-03-26] MEDS: Levothyroxine Sodium 88 MCG TAB PO SCH (05:23)
[2020-03-26] MEDS: Magnesium Oxide 400 MG TAB PO SCH (08:05)
[2020-03-26] MEDS: Metoprolol Tartrate 50 MG TAB PO SCH (08:06)
[2020-03-26] MEDS: Losartan 25 MG TAB PO SCH (08:06)
[2020-03-26] MEDS: risperiDONE 1 MG TAB PO SCH (08:06)
[2020-03-26] MEDS: HumaLOG 300 UNITS/3 ML VIAL SC PRN ×2 (16:57→21:54)
[2020-03-26] MEDS: Gabapentin 300 MG CAP PO SCH (21:51)
[2020-03-26] MEDS: hydrOXYzine 25 MG TAB PO SCH (21:51)
[2020-03-26] MEDS: Rosuvastatin 10 MG TAB PO SCH (21:52)
[2020-03-26 23:00] VITALS: TEMP 97.8
[2020-03-27] MEDS: Levothyroxine Sodium 88 MCG TAB PO SCH (05:42)
[2020-03-27] MEDS: Losartan 25 MG TAB PO SCH (08:35)
[2020-03-27] MEDS: risperiDONE 1 MG TAB PO SCH (08:35)
[2020-03-27] MEDS: Magnesium Oxide 400 MG TAB PO SCH (08:36)
[2020-03-27] MEDS: Metoprolol Tartrate 50 MG TAB PO SCH (08:36)
[2020-03-27 10:46] VITALS: BP 126/60
[2020-03-27] MEDS ORDERED: Dextrose 5 % And 0.9 % NaCl 1,000 ML IV SCH (13:30)
--- NOTE | 2020-03-28 02:48 | DIS ---
DATE OF ADMISSION: 03/05/2020 DATE OF DISCHARGE: 03/27/2020 DISCHARGING PHYSICIAN: Jack Bucio MD PRIMARY CARE PHYSICIAN: Steve Cash DO. DISCHARGE DISPOSITION: The patient was transferred to the [facility] Emergency Room and further transferred to [facility] in [place] for admission. DISCHARGE DIAGNOSES: 1. Stroke-like symptoms and code Green called on patient and the patient subsequently transferred to the emergency room. 2. Hallucinations and confusion. 3. Nausea and vomiting. 4. Physical deconditioning. 5. Diabetes type 2, on long-term insulin. 6. Hypothyroidism. 7. Gait instability. 8. Urinary retention. 9. Hypertension. 10. Nausea and vomiting. MEDICATIONS: 1. Tylenol 650 q.4 p.r.n. 2. Gabapentin 300 q.h.s. 3. Hydroxyzine 25 daily. 4. Insulin Humalog sliding scale. 5. Imdur ER 30 mg daily. 6. Levothyroxine 100 mcg daily. 7. Losartan 50 daily. 8. Magnesium oxide 400 daily. 9. Lopressor 50 daily. 10. Myrbetriq 25 mg p.o. daily. 11. Zofran 4 mg ODT p.o. q.6 hours p.r.n. 12. Phenergan 25 mg q.6 p.r.n. 13. Risperdal 1 mg daily. 14. Ranexa 1000 mg b.i.d. 15. Crestor 40 mg q.h.s. BRIEF HOSPITAL COURSE: The patient is a 79-year-old female, who was admitted to [facility] on the 05 of March due to hypoglycemia resulting in acute metabolic encephalopathy and physical deconditioning. The patient was admitted to [facility] in [place] on the 24 of February to 25 of February, where she was treated with IV fluids, insulin was changed and the patient was started on Lantus 5 units daily and sliding scale Humalog. The patient's condition improved, but she was noted to be physically deconditioned and the decision was made to transfer the patient to [facility] in [place] for skilled rehabilitation prior to returning to her home. Upon admission, the patient was able to participate in physical therapy. She was improving slowly and unfortunately during hospitalization by the 08 of March, the patient had an episode of hallucination. This was very sporadic and she noted she saw animals crawling in our room. The patient denied any previous history of this. She denies any previous mental illness. She denies any headache. She denies any illicit drug use. The patient was monitored closely and is sitting up again until March 13 when patient had episodes of nausea and vomiting. CBC, CMP, magnesium were done and the patient was noted to have low magnesium of 1.4 and a TSH was also 0.0085, so at the moment, her levothyroxine was switched from 100 to 88 mcg and she was started on magnesium oxide 400 mg daily. Her magnesium subsequently improved. The patient due to the nausea and vomiting, she was started on Zofran and subsequently put on clear liquid diet and this slowly improved. The patient had some episodes of constipation also and she was started on additional stool softeners, which helped. Abdominal x-ray was done on the and that was normal and a CAT scan of abdomen was also done due to intermittent nausea and vomiting, and the CAT scan showed no acute intraabdominal abnormality. The patient continued to participate in physical therapy and hallucinations and confusion intermittently worsened. We reviewed patient's medications and the patient also had repeated blood work again in March 19 with no acute finding. CAT scan of the brain was done on March 19 and this also showed no acute evidence of any intracranial process. The patient's notified us that the patient had a previous episode in the hospital in [place] and this was due to Protonix. The patient was not on Protonix in our facility, but she was on Pepcid, so this was discontinued and patient was monitored. The patient due to the hallucinations was started on Risperdal and she was monitored. Unfortunately, these hallucination and confusion intermittently continued to worsen and on March 27, the patient had a significant decline in mental status. I was able to evaluate the patient and she was very lethargic. She was able to answer some questions for me just by nodding head. She denied any previous history of seizures. She was unable to move upper or lower extremities. They were very flaccid and patient has aphasia. Due to this, the code stroke was called and patient was transferred to the emergency room. Due to hallucination and confusion, she had an appointment set with Dr. Mcclure, neurologist, March 28 and discharged to be canceled. The hospitalization was also complicated by urinary obstruction that required a Vazquez catheter to be placed. We recontacted a urologist, Dr. Garvey, who recommended she make an appointment when she is discharged from facility. Unfortunately on March 27, the patient was transferred to the emergency room where she had a CAT scan of her brain and CTA angio and both were negative, so a witnessed seizure was noted and the patient was given Keppra and transferred to the [facility] in [place] for higher level of care. In addition to the discharge diagnosis, I will add a new onset seizure disorder and insulin antidiabetic drug used. Also due to hypertension that another diagnosis . No tobacco use. The estimated amount of time used to prepare this discharge summary was a total of 45 minutes. Job ID: [id number]
== END 2020-03-27 14:44 | disposition short-term general hospital (02) | DRG 637 ==
LOC: MADMS 03-05 15:40
PROVIDERS: ADMIT Family Medicine; ATTEND Family Medicine
DX: E11.649 Type 2 diabetes mellitus with hypoglycemia without coma (principal); G93.41 Metabolic encephalopathy; R44.3 Hallucinations, unspecified; R53.81 Other malaise; I25.10 Atherosclerotic heart disease of native coronary artery without angina pectoris; E03.9 Hypothyroidism, unspecified; R32 Unspecified urinary incontinence; R26.9 Unspecified abnormalities of gait and mobility; E11.42 Type 2 diabetes mellitus with diabetic polyneuropathy; Z95.5 Presence of coronary angioplasty implant and graft; Z79.4 Long term (current) use of insulin; Z90.49 Acquired absence of other specified parts of digestive tract; I10 Essential (primary) hypertension; R11.2 Nausea with vomiting, unspecified; K59.00 Constipation, unspecified; G40.909 Epilepsy, unspecified, not intractable, without status epilepticus
CPT/HCPCS: 36416; 70450; 74018; 74177; 80053; 81001; 82140; 82607; 83735; 84443; 85025; 87086; J1815; Q0162; Q0169; Q9967

== ENCOUNTER 2020-03-27 12:27 | Emergency (ER) | payer MEDICARE ==
[~2020-03-27 12:27] MED LIST: Iopamidol 370 76% 125 ML VIAL FS ONE
--- NOTE | 2020-03-27 12:58 | CT ---
Exam: Stroke alert. Difficulty communicating. COMPARISON: 03/19/2020 FINDINGS: No parenchymal hemorrhage No extra-axial hematoma No midline shift Basilar cisterns are patent Age-appropriate atrophy Cortical kraus-white matter differentiation is preserved Stable chronic small vessel ischemic changes white matter No hydrocephalus Adequate aeration of the mastoid air cells. Right maxillary sinus mucus retention cysts. Intact chloe rium. IMPRESSION: 1. No acute intracranial process 2. No significant interval change 3. Results study conveyed to Dr. Negro 03/27/2020 at 12:53 PM Code CR
[2020-03-27 13:24] LABS: #Basophils 0.1 thou/uL (0.0-0.2); #Eosinphils 0.2 thou/uL (0.0-0.7); #Lymphocytes 2.1 thou/uL (1.20-3.40); #Monocytes 0.5 thou/uL (0.11-0.59); #Neutrophils 3.8 thou/uL (1.40-6.50); %Basophils 0.9 % (0.0-1.0); %Eosinophils 3.7 % (0.0-10.0); %Lymphocytes 31.8 % (21.0-51.0); %Monocytes 6.7 % (0.0-10.0); %Neutrophils 56.8 % (42.0-75.0); Hemoglobin 11.8 g/dL (12.0-16.0); Mean Corpuscular HGB CONC 31.6 g/dL (32.0-36.0); Mean Corpuscular Hemoglobin 29.1 pg (27.0-31.0); Mean Corpuscular Volume 91.9 fL (78.0-98.0); Mean Platelet Volume 7.8 fL (7.4-10.4); Platelet Count 152 thou/uL (130-400); RBC Distribution Width 13.2 % (11.5-14.5); Red Blood Cell (RBC) Count 4.06 mill/uL (4.20-5.40); White Blood Cell (WBC) Count 6.6 thou/uL (4.8-10.8)
[2020-03-27 13:26] LABS: INR-International Normal Ratio 1.1; Prothrombin Time 14.7 sec (12.0-14.7)
--- NOTE | 2020-03-27 13:28 | CT ---
EXAM: CT ANGIOGRAM OF THE HEAD AND NECK INDICATION: Stroke. COMPARISON: None. TECHNIQUE: CT angiogram of the head and neck are performed in the axial plane. Three-dimensional reformatted halle ges are submitted for interpretation. FINDINGS: CTA OF THE HEAD WITH AND WITHOUT CONTRAST: POSTCONTRAST CT OF BRAIN: Pathologic enhancement: No pathologic enhancement the brain. Postcontrast soft tissue neck CT: Aerodigestive tract:Limited evaluation by dental amalgam artifact. Aerodigestive tract is grossly pat ent. Sinuses: Right maxillary sinus mucus retention cyst.. Orbits: Bilateral ocular lens implants are appropriately located. Both globes are intact. Retrobulbar fat is preserved. Symmetric attenuation the optic nerves and ocular rectus muscles. Salivary glands:Symmetric attenuation of the parotid glands. Atrophy of bilateral submandibular gland s. Thyroid gland: Markedly diminutive. Lymph nodes: No evidence of lymphadenopathy by size criteria. Paraspinal muscles: Symmetric attenuation of the sternocleidomastoid muscles. Appropriate attenuation of the paraspinal muscles. Cervical spine:Vertebral body height is maintained. No fracture. No significant central canal stenosi s or significant neural foraminal narrowing. Limited evaluation by technique. Upper mediastinum and lung apices: Chronic changes are suspected. No acute abnormality. CTA OF THE NECK WITH CONTRAST: Aorta: Appropriate enhancement and luminal diameter of the aortic arch. Right carotid artery: Appropriate enhancement and luminal diameter the visualized origin of the right carotid artery, innominate artery, common carotid artery, carotid bifurcation and internal carotid artery. There is atherosclerosis involving the distal common carotid artery. There is atherosclerosis involving the carotid bifurcation and proximal internal carotid artery. There is short segment moderate stenosis of the proximal right internal carotid artery. No evidence of high-grade stenosis b ased upon NASCET criteria. Left carotid: Appropriate enhancement and luminal diameter the origin of the left carotid artery, com mon carotid artery, carotid bifurcation and internal carotid artery. There is atherosclerosis involving the left common carotid artery, carotid bifurcation and proximal internal carotid artery. N o significant stenosis based upon NASCET criteria. Subclavian arteries:Mild atherosclerosis involving the origin and proximal left subclavian artery. Mi ld narrowing of the proximal right subclavian artery. Vertebral arteries:Calcification involving the origin of both cervical vertebral arteries. Cervical v ertebral arteries are patent throughout their course in the neck. Dominant right vertebral artery. CTA OF THE BRAIN: Intracranial internal carotid arteries:Atherosclerosis involving both cavernous and paraclinoid segme nts without evidence of high-grade occlusion. Anterior circulation: Diminutive right A1 segment likely representing congenital variant. Both A2 seg ments have enhancement proximally. Bilateral M1 segments have appropriate enhancement and luminal diameter. Bilateral MCA distributions are essentially symmetric. Intracranial vertebral arteries: Patent. Limited evaluation of the PICA artery origins. Posterior circulation: Both vertebral arteries supply a normal appearing basilar artery. Bilateral P1 segments have appropriate enhancement and luminal diameter. IMPRESSION: 1. No hemodynamically significant stenosis, occlusion or aneurysmal formation. 2. Atherosclerosis of the cervical carotid arteries and intracranial carotid arteries as described ab ove. 3. Results of the study discussed with Dr. Negro 1:26 PM, 03/27/2020. Code CR Transcribed Date/Time: 03/27/2020 1:38 PM
[2020-03-27 13:35] LABS: ALT (SGPT) Less than 7 U/L (8-55); AST (SGOT) 16 U/L (5-34); Albumin 2.9 g/dL (3.4-4.8); Alkaline Phosphatase 49 U/L (40-110); Anion Gap 14 mmol/L (10-20); BUN (Urea Nitrogen) 18 mg/dL (9.8-20.1); Bilirubin, Total 0.8 mg/dL (0.2-1.2); Calc. Creatinine Clearance 0 mL/min (70-130); Calcium 8.7 mg/dL (7.8-10.44); Carbon Dioxide 32 mmol/L (23-31); Chloride 98 mmol/L (98-107); Estimated GFR-MDRD 65; Globulin 2.6 g/dL (2.4-3.5); Glucose 216 mg/dL (83-110); Potassium 4.4 mmol/L (3.5-5.1); Protein, Total 5.5 g/dL (6.0-8.3); Sodium 140 mmol/L (136-145)
[2020-03-27 13:39] LABS: CKMB 0.8 ng/mL (0-6.6)
--- NOTE | 2020-03-27 13:41 | RAD ---
Exam: Chest one view HISTORY:Stroke alert. Altered mental status. Comparison: 02/25/2020 FINDINGS: Cardiac silhouette: Normal Aorta: Atherosclerotic Pulmonary vessels: Normal Costophrenic angles: Clear LUNGS: Chronic lung parenchymal changes, possible bibasilar infiltrates, left greater than right. Pneumothorax: None Osseous abnormalities: None IMPRESSION: 1. Atherosclerosis 2. Chronic lung parenchymal changes. Superimposed infiltrate predominantly the lung bases cannot be e xcluded.
[2020-03-27] MEDS ORDERED: levETIRAcetam 500 MG/100 ML PREMIX BAG ONE (13:51)
[2020-03-27 14:46] LABS: Bilirubin Negative (Negative); Blood, Urine Trace (Negative); Clarity Slightly Cloudy (Clear); Glucose, Urine (Dipstick) 500 mg/dL (Negative); Ketone, Urine 15 mg/dL (Negative); Leukocyte Small (Negative); Nitrite Positive (Negative); Protein, Urine (Dipstick) Trace mg/dL (Neg-Trace); Specific Gravity, Urine 1.015 (1.005-1.030)
[2020-03-27 14:59] LABS: Bacteria/HPF 3+ HPF (None Seen); Squamous Epithelial None Seen HPF (0-3); WBC/HPF Greater Than 50 HPF (0-3)
[2020-03-27] MEDS ORDERED: cefTRIAXone\\ROCEPHIN 1 GM VIAL ONE (15:37)
== END 2020-03-27 16:01 | disposition short-term general hospital (02) ==
LOC: MADERS 12:27
DX: G40.209 Localization-related (focal) (partial) symptomatic epilepsy and epileptic syndromes with complex partial seizures, not intractable, without status epilepticus (principal); E03.9 Hypothyroidism, unspecified; E78.5 Hyperlipidemia, unspecified; I10 Essential (primary) hypertension; E11.40 Type 2 diabetes mellitus with diabetic neuropathy, unspecified; Z79.899 Other long term (current) drug therapy
CPT/HCPCS: 36416; 70450; 70496; 70498; 71045; 80053; 81003; 81015; 82553; 84484; 85025; 85610; 85730; 87077; 87086; 87186; 93005; 96365; 96375; J0696; J1953; J2997; Q9967

== ENCOUNTER 2020-04-04 21:49 | Inpatient (IN) | payer MEDICARE ==
[2020-04-05] MEDS ORDERED: Ondansetron ODT 4 MG TAB PO PRN (00:39)
[2020-04-05] MEDS ORDERED: Dextrose 5% in Water 1,000 ML IV PRN (00:45)
[2020-04-05] MEDS ORDERED: Dextrose 50% Abboject 50 ML SYRINGE IVP PRN (00:45)
[2020-04-05] MEDS: Ciprofloxacin 500 MG TAB PO SCH ×2 (06:28→20:12)
[2020-04-05] MEDS: Tamsulosin HCl 0.4 MG CAP PO SCH (09:12)
[2020-04-05] MEDS: Losartan Potassium 50 MG TAB PO SCH (09:12)
[2020-04-05] MEDS: Famotidine 20 MG TAB PO SCH (09:12)
[2020-04-05] MEDS: Magnesium Oxide 400 MG TAB PO SCH (09:12)
[2020-04-05] MEDS: Proctozone-HC 30 GM TUBE TOP SCH ×2 (09:13→20:16)
[2020-04-05] MEDS: risperiDONE 1 MG TAB PO SCH (09:13)
[2020-04-05] MEDS: HumaLOG 300 UNITS/3 ML VIAL SC PRN ×2 (12:22→20:23)
[2020-04-05] MEDS: Ibuprofen 800 MG TAB PO PRN (13:23)
[2020-04-05] MEDS ORDERED: FLU VACC QS2020-21(65YR UP)/PF 240 MCG/0.7 ML SYRINGE IM ONE (21:00)
[2020-04-05] MEDS ORDERED: Gabapentin 300 MG CAP PO SCH (21:00)
[2020-04-06] MEDS: Ciprofloxacin 500 MG TAB PO SCH ×2 (05:33→20:24)
[2020-04-06] MEDS: Losartan Potassium 50 MG TAB PO SCH (09:15)
[2020-04-06] MEDS: Magnesium Oxide 400 MG TAB PO SCH (09:16)
[2020-04-06] MEDS: Tamsulosin HCl 0.4 MG CAP PO SCH (09:16)
[2020-04-06] MEDS: risperiDONE 1 MG TAB PO SCH (09:16)
[2020-04-06] MEDS: Famotidine 20 MG TAB PO SCH (09:16)
[2020-04-06] MEDS: Proctozone-HC 30 GM TUBE TOP SCH ×2 (09:17→20:25)
[2020-04-06] MEDS: HumaLOG 300 UNITS/3 ML VIAL SC PRN ×2 (09:19→17:58)
--- NOTE | 2020-04-06 19:45 | HP ---
PRIMARY CARE PHYSICIAN: Dr. Steve Cash REASON FOR ADMISSION: For skilled rehabilitation at [facility] due to physical deconditioning, metabolic encephalopathy, and urinary tract infection with urinary retention. HISTORY OF PRESENT ILLNESS: Ms. Moreno is a 79-year-old female with history of diabetes type 2; on long-term insulin use coronary artery disease, status post stent placement; ; hypothyroidism; urinary incontinent and urinary retention. The patient was initially admitted to [facility] in [place], February 24 to March 05 due to hypoglycemia due to over use of insulin. The patient's medication was adjusted and she was noted to be physically deconditioned, so she was transferred to [facility] for skilled rehabilitation. The patient was admitted to [facility] from March 05 to March 28. During hospitalization over here, patient's admission was complicated by episodes of hallucinations and confusion and on day of discharge from here, it was noted that she had stroke-like symptoms and this was later classified as a seizure and the patient was transferred to [facility] in [place] for further evaluation. The patient on the 28 of March was admitted and was seen by the Neurology Service, who did an MRI of her brain, which did not show any acute lesion. An EEG was consistent with mild generalized nonspecific cerebral dysfunction. The patient's hospitalization was also complicated by urinary tract infection which grew Enterobacter aerogenes and this was resistant to cefoxitin and intermediate resistant to nitrofurantoin, but otherwise pansensitive. The patient developed urinary retention during hospitalization and was started on Flomax. She was physically deconditioned. She continued to have episodes of hallucinations and confusion and she had an MRI of her cervical spine on the 03 of April due to weakness to her extremities and the urinary retention, which showed multilevel degenerative changes of her cervical spine and case was discussed with the Neurosurgery Service and they recommended the patient to follow up as an outpatient. The patient, during hospitalization, statin was discontinued as this was thought to be causing myopathy and metoprolol was also decreased during the hospitalization. The patient continued to have episodes of hallucination and confusion and she was physically deconditioned, so she was noted to transfer back to [facility] for physical therapy prior to discharge back to home or to a long-term care facility. The patient was notified to follow up with neurosurgeon, Dr. Collier, as an outpatient. Upon evaluation of patient today, she was very confused. She did not want nurses attending to her when she was transferred back to facility. She was combative and calling and stating we are not taking care of her and we left her on the floor. Family members were reassured this was not the situation and patient was in bed in a comfortable position. PAST MEDICAL HISTORY: Diabetes type 2 requiring insulin, diagnosed in her 20s; coronary artery disease, status post stent placement; urinary incontinence; hypertension; hyperlipidemia; hypothyroidism; peripheral neuropathy. PAST SURGICAL HISTORY: Status post right knee surgery, status post ear surgery, status post cardiac stent placement, status post hysterectomy, status post appendectomy, status post 2 bladder surgeries per patient. FAMILY HISTORY: Parents both . Unknown health history. SOCIAL HISTORY: Lived at home with her elderly , denies tobacco, alcohol or illicit drug use. ALLERGIES: CODEINE, MORPHINE, AND PENICILLIN. CODE STATUS: The patient is a full code. MEDICATIONS: 1. Cipro 500 b.i.d. x5 days. 2. Pepcid 20 daily. 3. Neurontin 300 at bedtime. 4. Ibuprofen 800 t.i.d. 5. Humalog sliding scale, mild. 6. Cozaar 50 daily. 7. Imdur 30 daily. 8. Mag-Ox 400 daily. 9. Ranexa 1000 b.i.d. 10. Risperdal 1 mg daily. 11. Flomax 0.4 mg daily. REVIEW OF SYSTEMS: CONSTITUTIONAL: Negative for weight loss or weight gain. Positive for generalized weakness. SKIN: Positive for sacral stage II ulcer. EYES: Negative for double vision or pain. HEENT: Negative for nosebleed, pain, or tenderness. CARDIOVASCULAR: Negative for chest pain, palpitations, shortness of breath. RESPIRATORY: Negative for shortness of breath, cough, wheezing. GASTROINTESTINAL: Negative for nausea or vomiting. Positive for decreased appetite. GENITOURINARY: Patient does have a Foster catheter in place. Positive for urinary retention. MUSCULOSKELETAL: Negative for pain or swelling. NEUROLOGICAL: Positive for generalized weakness. PSYCHIATRY: Positive for hallucinations and confusion. PHYSICAL EXAMINATION: VITAL SIGNS: Temperature 98.7, pulse 80, respirations 18, O2 saturation 93% on room air, blood pressure 164/61. GENERAL: The patient is sleepy, but easily arousable. Oriented to self. The patient is easily confused and agitated, resting in bed. HEENT: Pupils round, equal, reactive to light and accommodation. Extraocular muscles intact. No scleral icterus. No conjunctival injection. Nares patent. Oral mucous membrane moist. NECK: Supple. No JVD. No adenopathy. No thyromegaly. CHEST: Clear to auscultation bilaterally. GASTROINTESTINAL: Positive bowel sounds. Nontender and nondistended. No palpable masses. No hepatomegaly. EXTREMITIES: No cyanosis, clubbing, no edema. SKIN: Positive stage II sacral pressure ulcer. NEUROLOGICAL: No new acute deficits. MUSCULOSKELETAL: Generalized weakness, fairly profound. PSYCHIATRY: Patient has waxing and waning hallucination and confusion. ASSESSMENT: 1. Physical deconditioning. 2. Acute metabolic encephalopathy. 3. Urinary tract infection. 4. Urinary retention with foster catheter. 5. Stage 2 decubitus ulcer to sacrum. 6. Cervical spinal stenosis. 7. Hypothyroidism. 8. No tobacco use. 9. Diabetes type 2, requiring insulin long-term. PLAN: The patient is a 79-year-old female, being admitted to [facility]. We will consult Physical Therapy and Occupational Therapy to help with strengthening, gait, balance, and improved help with ambulation. Occupational Therapy to help with activities of daily living. We will consult geriatric social work professor to help with possible placement on long-term care with family. We will place the patient on Accu-Cheks a.c. and at bedtime. We will place patient back on mild sliding scale. As appetite is decreased, we will hold off on Lantus for now and adjust accordingly. We will place the patient on GI prophylaxis and DVT prophylaxis with Pepcid b.i.d. and SCDs. We will change Foster catheter as needed. We will continue antibiotics to complete a 7-day course. We will help with discharge planning once ready for this and assist family in understanding her disease progress. Total time spent in planning and preparation of this H and P was greater than 45 minutes. Job ID: [id number] [facility]
[2020-04-07] MEDS: Ciprofloxacin 500 MG TAB PO SCH ×2 (05:54→20:45)
[2020-04-07] MEDS: Losartan Potassium 50 MG TAB PO SCH (09:30)
[2020-04-07] MEDS: Tamsulosin HCl 0.4 MG CAP PO SCH (09:30)
[2020-04-07] MEDS: Famotidine 20 MG TAB PO SCH (09:30)
[2020-04-07] MEDS: risperiDONE 1 MG TAB PO SCH (09:30)
[2020-04-07] MEDS: Magnesium Oxide 400 MG TAB PO SCH (09:30)
[2020-04-07] MEDS: Proctozone-HC 30 GM TUBE TOP SCH ×2 (09:32→20:47)
[2020-04-07] MEDS ORDERED: Docusate 100 MG CAP PO SCH (20:45)
[2020-04-07] MEDS: Mirtazapine 15 MG TAB PO SCH (20:45)
[2020-04-07] MEDS: HumaLOG 300 UNITS/3 ML VIAL SC PRN (20:50)
[2020-04-08] MEDS: Ciprofloxacin 500 MG TAB PO SCH ×2 (06:29→21:15)
[2020-04-08] MEDS: Levothyroxine Sodium 88 MCG TAB PO SCH (06:29)
[2020-04-08] MEDS: Polyethylene Glycol 3350 17 GM Packet PO SCH (09:26)
[2020-04-08] MEDS: Docusate 100 MG CAP PO SCH (09:26)
[2020-04-08] MEDS: Famotidine 20 MG TAB PO SCH (09:27)
[2020-04-08] MEDS: risperiDONE 1 MG TAB PO SCH (09:27)
[2020-04-08] MEDS: Magnesium Oxide 400 MG TAB PO SCH (09:27)
[2020-04-08] MEDS: Tamsulosin HCl 0.4 MG CAP PO SCH (09:27)
[2020-04-08] MEDS: Losartan Potassium 50 MG TAB PO SCH (09:27)
[2020-04-08] MEDS: Proctozone-HC 30 GM TUBE TOP SCH ×2 (09:27→21:15)
[2020-04-08] MEDS: HumaLOG 300 UNITS/3 ML VIAL SC PRN ×3 (12:26→21:15)
[2020-04-08] MEDS: Mirtazapine 15 MG TAB PO SCH (21:15)
[2020-04-09] MEDS: Ciprofloxacin 500 MG TAB PO SCH (05:33)
[2020-04-09] MEDS: Levothyroxine Sodium 88 MCG TAB PO SCH (05:33)
[2020-04-09] MEDS: Polyethylene Glycol 3350 17 GM Packet PO SCH (07:59)
[2020-04-09] MEDS: Docusate 100 MG CAP PO SCH (08:00)
[2020-04-09] MEDS: Proctozone-HC 30 GM TUBE TOP SCH ×2 (08:00→20:38)
[2020-04-09] MEDS: Losartan Potassium 50 MG TAB PO SCH (08:00)
[2020-04-09] MEDS: Tamsulosin HCl 0.4 MG CAP PO SCH (08:00)
[2020-04-09] MEDS: risperiDONE 1 MG TAB PO SCH (08:00)
[2020-04-09] MEDS: Magnesium Oxide 400 MG TAB PO SCH (08:00)
[2020-04-09] MEDS: Famotidine 20 MG TAB PO SCH (08:00)
[2020-04-09] MEDS: HumaLOG 300 UNITS/3 ML VIAL SC PRN (20:32)
[2020-04-09] MEDS: Mirtazapine 15 MG TAB PO SCH (20:37)
[2020-04-10] MEDS: Levothyroxine Sodium 88 MCG TAB PO SCH (05:57)
[2020-04-10] MEDS: Famotidine 20 MG TAB PO SCH (08:31)
[2020-04-10] MEDS: Tamsulosin HCl 0.4 MG CAP PO SCH (08:31)
[2020-04-10] MEDS: Ibuprofen 800 MG TAB PO PRN (08:31)
[2020-04-10] MEDS: Magnesium Oxide 400 MG TAB PO SCH (08:31)
[2020-04-10] MEDS: Polyethylene Glycol 3350 17 GM Packet PO SCH (08:32)
[2020-04-10] MEDS: Proctozone-HC 30 GM TUBE TOP SCH ×2 (08:32→21:06)
[2020-04-10] MEDS: Losartan Potassium 50 MG TAB PO SCH (08:32)
[2020-04-10] MEDS: Docusate 100 MG CAP PO SCH (08:32)
[2020-04-10] MEDS: risperiDONE 1 MG TAB PO SCH (08:37)
[2020-04-10] MEDS: HumaLOG 300 UNITS/3 ML VIAL SC PRN ×2 (12:11→17:10)
[2020-04-10] MEDS: Mirtazapine 15 MG TAB PO SCH (21:03)
[2020-04-11] MEDS: Levothyroxine Sodium 88 MCG TAB PO SCH (05:55)
[2020-04-11] MEDS: Magnesium Oxide 400 MG TAB PO SCH (09:10)
[2020-04-11] MEDS: risperiDONE 1 MG TAB PO SCH (09:10)
[2020-04-11] MEDS: Docusate 100 MG CAP PO SCH (09:10)
[2020-04-11] MEDS: Losartan Potassium 50 MG TAB PO SCH (09:11)
[2020-04-11] MEDS: Tamsulosin HCl 0.4 MG CAP PO SCH (09:11)
[2020-04-11] MEDS: Famotidine 20 MG TAB PO SCH (09:11)
[2020-04-11] MEDS: Proctozone-HC 30 GM TUBE TOP SCH ×2 (09:14→21:00)
[2020-04-11] MEDS: Polyethylene Glycol 3350 17 GM Packet PO SCH (09:14)
[2020-04-11] MEDS: HumaLOG 300 UNITS/3 ML VIAL SC PRN ×4 (09:18→20:54)
[2020-04-11] MEDS: Lantus 1000 UNITS/10 ML VIAL SC SCH (20:55)
[2020-04-11] MEDS: Mirtazapine 15 MG TAB PO SCH (20:56)
[2020-04-11] MEDS: Senokot S 8.6-50 MG TAB PO SCH (20:56)
[2020-04-11] MEDS ORDERED: Insulin Glargine 5 UNITS in Pre-Filled Syringe 1 EACH SC SCH (21:00)
[2020-04-12] MEDS: Levothyroxine Sodium 88 MCG TAB PO SCH (06:09)
[2020-04-12] MEDS: Polyethylene Glycol 3350 17 GM Packet PO SCH (09:03)
[2020-04-12] MEDS: Docusate 100 MG CAP PO SCH (09:03)
[2020-04-12] MEDS: Magnesium Oxide 400 MG TAB PO SCH (09:03)
[2020-04-12] MEDS: Famotidine 20 MG TAB PO SCH (09:03)
[2020-04-12] MEDS: risperiDONE 1 MG TAB PO SCH (09:04)
[2020-04-12] MEDS: Proctozone-HC 30 GM TUBE TOP SCH ×2 (09:04→21:37)
[2020-04-12] MEDS: Losartan Potassium 50 MG TAB PO SCH (09:04)
[2020-04-12] MEDS: Tamsulosin HCl 0.4 MG CAP PO SCH (09:05)
[2020-04-12] MEDS: Senokot S 8.6-50 MG TAB PO SCH ×2 (09:06→21:20)
[2020-04-12 10:36] VITALS: BMI 31.8
[2020-04-12] MEDS: Mirtazapine 15 MG TAB PO SCH (21:20)
[2020-04-12] MEDS: Lantus 1000 UNITS/10 ML VIAL SC SCH (21:37)
[2020-04-13] MEDS: Levothyroxine Sodium 88 MCG TAB PO SCH (06:25)
[2020-04-13] MEDS: Polyethylene Glycol 3350 17 GM Packet PO SCH (09:40)
[2020-04-13] MEDS: risperiDONE 1 MG TAB PO SCH (09:41)
[2020-04-13] MEDS: Losartan Potassium 50 MG TAB PO SCH (09:41)
[2020-04-13] MEDS: Famotidine 20 MG TAB PO SCH (09:41)
[2020-04-13] MEDS: Magnesium Oxide 400 MG TAB PO SCH (09:41)
[2020-04-13] MEDS: Senokot S 8.6-50 MG TAB PO SCH ×2 (09:41→20:54)
[2020-04-13] MEDS: Tamsulosin HCl 0.4 MG CAP PO SCH (09:41)
[2020-04-13] MEDS: Docusate 100 MG CAP PO SCH (09:41)
[2020-04-13] MEDS: Proctozone-HC 30 GM TUBE TOP SCH ×2 (09:42→20:54)
[2020-04-13] MEDS: HumaLOG 300 UNITS/3 ML VIAL SC PRN ×2 (09:42→17:03)
[2020-04-13] MEDS: Mirtazapine 15 MG TAB PO SCH (20:48)
[2020-04-13] MEDS: Lantus 1000 UNITS/10 ML VIAL SC SCH (20:55)
[2020-04-14] MEDS: Senokot S 8.6-50 MG TAB PO SCH ×3 (01:24→21:03)
[2020-04-14] MEDS: Famotidine 20 MG TAB PO SCH (08:43)
[2020-04-14] MEDS: Tamsulosin HCl 0.4 MG CAP PO SCH (08:43)
[2020-04-14] MEDS: Losartan Potassium 50 MG TAB PO SCH (08:43)
[2020-04-14] MEDS: Docusate 100 MG CAP PO SCH (08:43)
[2020-04-14] MEDS: Magnesium Oxide 400 MG TAB PO SCH (08:43)
[2020-04-14] MEDS: risperiDONE 1 MG TAB PO SCH (08:43)
[2020-04-14] MEDS: Levothyroxine Sodium 88 MCG TAB PO SCH (08:43)
[2020-04-14] MEDS: Proctozone-HC 30 GM TUBE TOP SCH ×2 (08:44→20:50)
[2020-04-14] MEDS: Polyethylene Glycol 3350 17 GM Packet PO SCH (08:44)
[2020-04-14] MEDS: HumaLOG 300 UNITS/3 ML VIAL SC PRN ×3 (11:52→20:54)
[2020-04-14] MEDS ORDERED: Bisacodyl 10 MG SUPP PR SCH (16:45)
[2020-04-14] MEDS: Lantus 1000 UNITS/10 ML VIAL SC SCH (20:52)
[2020-04-14] MEDS: Mirtazapine 15 MG TAB PO SCH (21:03)
[2020-04-15] MEDS: Losartan Potassium 50 MG TAB PO SCH (08:13)
[2020-04-15] MEDS: Magnesium Oxide 400 MG TAB PO SCH (08:13)
[2020-04-15] MEDS: risperiDONE 1 MG TAB PO SCH (08:13)
[2020-04-15] MEDS: Docusate 100 MG CAP PO SCH (08:13)
[2020-04-15] MEDS: Senokot S 8.6-50 MG TAB PO SCH ×2 (08:13→20:38)
[2020-04-15] MEDS: Polyethylene Glycol 3350 17 GM Packet PO SCH (08:13)
[2020-04-15] MEDS: Famotidine 20 MG TAB PO SCH (08:13)
[2020-04-15] MEDS: Tamsulosin HCl 0.4 MG CAP PO SCH (08:13)
[2020-04-15] MEDS: Proctozone-HC 30 GM TUBE TOP SCH ×2 (08:14→20:38)
[2020-04-15] MEDS: Levothyroxine Sodium 88 MCG TAB PO SCH (08:16)
[2020-04-15] MEDS: HumaLOG 300 UNITS/3 ML VIAL SC PRN ×3 (12:05→20:44)
[2020-04-15] MEDS: Lantus 1000 UNITS/10 ML VIAL SC SCH (20:38)
[2020-04-15] MEDS: Mirtazapine 15 MG TAB PO SCH (20:38)
[2020-04-16] MEDS: Levothyroxine Sodium 88 MCG TAB PO SCH (06:08)
[2020-04-16] MEDS: Polyethylene Glycol 3350 17 GM Packet PO SCH (09:31)
[2020-04-16] MEDS: Docusate 100 MG CAP PO SCH (09:32)
[2020-04-16] MEDS: Losartan Potassium 50 MG TAB PO SCH (09:32)
[2020-04-16] MEDS: Senokot S 8.6-50 MG TAB PO SCH ×2 (09:32→20:09)
[2020-04-16] MEDS: Magnesium Oxide 400 MG TAB PO SCH (09:32)
[2020-04-16] MEDS: risperiDONE 1 MG TAB PO SCH (09:32)
[2020-04-16] MEDS: Tamsulosin HCl 0.4 MG CAP PO SCH (09:32)
[2020-04-16] MEDS: Proctozone-HC 30 GM TUBE TOP SCH ×2 (09:33→20:14)
[2020-04-16] MEDS: Famotidine 20 MG TAB PO SCH (09:33)
[2020-04-16] MEDS: HumaLOG 300 UNITS/3 ML VIAL SC PRN ×3 (14:40→20:13)
[2020-04-16] MEDS: Mirtazapine 15 MG TAB PO SCH (20:10)
[2020-04-16] MEDS: Lantus 1000 UNITS/10 ML VIAL SC SCH (20:13)
[2020-04-17] MEDS: Levothyroxine Sodium 88 MCG TAB PO SCH (05:21)
[2020-04-17] MEDS: Losartan Potassium 50 MG TAB PO SCH (09:14)
[2020-04-17] MEDS: Polyethylene Glycol 3350 17 GM Packet PO SCH (09:14)
[2020-04-17] MEDS: Magnesium Oxide 400 MG TAB PO SCH (09:14)
[2020-04-17] MEDS: risperiDONE 1 MG TAB PO SCH (09:14)
[2020-04-17] MEDS: Docusate 100 MG CAP PO SCH (09:14)
[2020-04-17] MEDS: Proctozone-HC 30 GM TUBE TOP SCH ×2 (09:15→20:09)
[2020-04-17] MEDS: Famotidine 20 MG TAB PO SCH (09:15)
[2020-04-17] MEDS: Tamsulosin HCl 0.4 MG CAP PO SCH (09:15)
[2020-04-17] MEDS: Senokot S 8.6-50 MG TAB PO SCH ×2 (09:15→20:03)
[2020-04-17] MEDS: HumaLOG 300 UNITS/3 ML VIAL SC PRN ×2 (18:39→20:11)
[2020-04-17] MEDS: Mirtazapine 15 MG TAB PO SCH (20:03)
[2020-04-17] MEDS: Lantus 1000 UNITS/10 ML VIAL SC SCH (20:10)
[2020-04-18] MEDS: Levothyroxine Sodium 88 MCG TAB PO SCH (05:03)
[2020-04-18] MEDS: Docusate 100 MG CAP PO SCH (07:54)
[2020-04-18] MEDS: Losartan Potassium 50 MG TAB PO SCH (07:55)
[2020-04-18] MEDS: Tamsulosin HCl 0.4 MG CAP PO SCH (07:55)
[2020-04-18] MEDS: risperiDONE 1 MG TAB PO SCH (07:55)
[2020-04-18] MEDS: Magnesium Oxide 400 MG TAB PO SCH (07:55)
[2020-04-18] MEDS: Senokot S 8.6-50 MG TAB PO SCH ×2 (07:56→21:04)
[2020-04-18] MEDS: Proctozone-HC 30 GM TUBE TOP SCH ×2 (07:56→21:03)
[2020-04-18] MEDS: Polyethylene Glycol 3350 17 GM Packet PO SCH (07:56)
[2020-04-18] MEDS: Famotidine 20 MG TAB PO SCH (07:56)
[2020-04-18] MEDS: HumaLOG 300 UNITS/3 ML VIAL SC PRN ×2 (12:04→16:46)
[2020-04-18] MEDS: Lantus 1000 UNITS/10 ML VIAL SC SCH (21:03)
[2020-04-18] MEDS: Mirtazapine 15 MG TAB PO SCH (21:04)
[2020-04-19] MEDS: Levothyroxine Sodium 88 MCG TAB PO SCH (05:36)
[2020-04-19] MEDS: Magnesium Oxide 400 MG TAB PO SCH (08:41)
[2020-04-19] MEDS: Polyethylene Glycol 3350 17 GM Packet PO SCH (08:41)
[2020-04-19] MEDS: Tamsulosin HCl 0.4 MG CAP PO SCH (08:41)
[2020-04-19] MEDS: risperiDONE 1 MG TAB PO SCH (08:41)
[2020-04-19] MEDS: Losartan Potassium 50 MG TAB PO SCH (08:41)
[2020-04-19] MEDS: Docusate 100 MG CAP PO SCH (08:41)
[2020-04-19] MEDS: Senokot S 8.6-50 MG TAB PO SCH ×2 (08:41→21:19)
[2020-04-19] MEDS: Proctozone-HC 30 GM TUBE TOP SCH ×2 (08:42→21:22)
[2020-04-19] MEDS: Famotidine 20 MG TAB PO SCH (08:42)
[2020-04-19] MEDS: HumaLOG 300 UNITS/3 ML VIAL SC PRN ×2 (11:48→17:06)
[2020-04-19] MEDS: Lantus 1000 UNITS/10 ML VIAL SC SCH (21:19)
[2020-04-19] MEDS: Mirtazapine 15 MG TAB PO SCH (21:19)
[2020-04-20] MEDS: Levothyroxine Sodium 88 MCG TAB PO SCH (06:13)
[2020-04-20] MEDS: risperiDONE 1 MG TAB PO SCH (09:18)
[2020-04-20] MEDS: Magnesium Oxide 400 MG TAB PO SCH (09:19)
[2020-04-20] MEDS: Docusate 100 MG CAP PO SCH (09:19)
[2020-04-20] MEDS: Losartan Potassium 50 MG TAB PO SCH (09:19)
[2020-04-20] MEDS: Tamsulosin HCl 0.4 MG CAP PO SCH (09:19)
[2020-04-20] MEDS: Senokot S 8.6-50 MG TAB PO SCH ×2 (09:19→20:24)
[2020-04-20] MEDS: Famotidine 20 MG TAB PO SCH (09:19)
[2020-04-20] MEDS: Polyethylene Glycol 3350 17 GM Packet PO SCH (09:20)
[2020-04-20] MEDS: Proctozone-HC 30 GM TUBE TOP SCH ×2 (09:21→20:23)
[2020-04-20] MEDS: HumaLOG 300 UNITS/3 ML VIAL SC PRN ×2 (12:25→17:25)
[2020-04-20] MEDS: Mirtazapine 15 MG TAB PO SCH (20:22)
[2020-04-20] MEDS: Lantus 1000 UNITS/10 ML VIAL SC SCH (20:23)
[2020-04-21] MEDS: Levothyroxine Sodium 88 MCG TAB PO SCH (05:04)
[2020-04-21] MEDS: Famotidine 20 MG TAB PO SCH (09:21)
[2020-04-21] MEDS: Magnesium Oxide 400 MG TAB PO SCH (09:21)
[2020-04-21] MEDS: risperiDONE 1 MG TAB PO SCH (09:21)
[2020-04-21] MEDS: Polyethylene Glycol 3350 17 GM Packet PO SCH (09:21)
[2020-04-21] MEDS: Docusate 100 MG CAP PO SCH (09:22)
[2020-04-21] MEDS: Proctozone-HC 30 GM TUBE TOP SCH ×2 (09:22→19:59)
[2020-04-21] MEDS: Losartan Potassium 50 MG TAB PO SCH (09:22)
[2020-04-21] MEDS: Tamsulosin HCl 0.4 MG CAP PO SCH (09:22)
[2020-04-21] MEDS: Senokot S 8.6-50 MG TAB PO SCH ×2 (09:29→19:59)
[2020-04-21] MEDS: HumaLOG 300 UNITS/3 ML VIAL SC PRN ×2 (12:15→18:03)
[2020-04-21] MEDS: Lantus 1000 UNITS/10 ML VIAL SC SCH (19:59)
[2020-04-21] MEDS: Mirtazapine 15 MG TAB PO SCH (19:59)
[2020-04-22] MEDS: Levothyroxine Sodium 88 MCG TAB PO SCH (05:05)
[2020-04-22] MEDS: Polyethylene Glycol 3350 17 GM Packet PO SCH ×2 (09:49→11:13)
[2020-04-22] MEDS: Famotidine 20 MG TAB PO SCH ×2 (09:49→11:14)
[2020-04-22] MEDS: Magnesium Oxide 400 MG TAB PO SCH ×2 (09:50→11:14)
[2020-04-22] MEDS: Docusate 100 MG CAP PO SCH ×2 (09:50→11:14)
[2020-04-22] MEDS: risperiDONE 1 MG TAB PO SCH ×2 (09:51→11:15)
[2020-04-22] MEDS: Senokot S 8.6-50 MG TAB PO SCH ×3 (09:51→20:05)
[2020-04-22] MEDS: Losartan Potassium 50 MG TAB PO SCH ×2 (09:52→11:15)
[2020-04-22] MEDS: Proctozone-HC 30 GM TUBE TOP SCH ×2 (09:52→20:06)
[2020-04-22] MEDS: Tamsulosin HCl 0.4 MG CAP PO SCH (09:53)
[2020-04-22] MEDS: HumaLOG 300 UNITS/3 ML VIAL SC PRN ×2 (12:25→17:47)
[2020-04-22] MEDS: Lantus 1000 UNITS/10 ML VIAL SC SCH (20:04)
[2020-04-22] MEDS: Mirtazapine 15 MG TAB PO SCH (20:05)
[2020-04-23] MEDS: Levothyroxine Sodium 88 MCG TAB PO SCH (05:30)
[2020-04-23] MEDS: HumaLOG 300 UNITS/3 ML VIAL SC PRN ×3 (08:35→17:18)
[2020-04-23] MEDS: Polyethylene Glycol 3350 17 GM Packet PO SCH (08:37)
[2020-04-23] MEDS: Losartan Potassium 50 MG TAB PO SCH (08:38)
[2020-04-23] MEDS: Senokot S 8.6-50 MG TAB PO SCH ×2 (08:39→20:49)
[2020-04-23] MEDS: risperiDONE 1 MG TAB PO SCH (08:39)
[2020-04-23] MEDS: Docusate 100 MG CAP PO SCH (08:39)
[2020-04-23] MEDS: Magnesium Oxide 400 MG TAB PO SCH (08:40)
[2020-04-23] MEDS: Famotidine 20 MG TAB PO SCH (08:40)
[2020-04-23] MEDS: Tamsulosin HCl 0.4 MG CAP PO SCH (08:40)
[2020-04-23] MEDS: Proctozone-HC 30 GM TUBE TOP SCH ×2 (12:12→20:50)
[2020-04-23] MEDS: Lantus 1000 UNITS/10 ML VIAL SC SCH (20:46)
[2020-04-23] MEDS: Mirtazapine 15 MG TAB PO SCH (20:48)
[2020-04-24] MEDS: Levothyroxine Sodium 88 MCG TAB PO SCH (05:46)
[2020-04-24] MEDS: Famotidine 20 MG TAB PO SCH (08:38)
[2020-04-24] MEDS: Losartan Potassium 50 MG TAB PO SCH (08:38)
[2020-04-24] MEDS: Senokot S 8.6-50 MG TAB PO SCH ×2 (08:38→20:28)
[2020-04-24] MEDS: risperiDONE 1 MG TAB PO SCH (08:38)
[2020-04-24] MEDS: HumaLOG 300 UNITS/3 ML VIAL SC PRN ×4 (08:39→20:44)
[2020-04-24] MEDS: Tamsulosin HCl 0.4 MG CAP PO SCH (08:39)
[2020-04-24] MEDS: Polyethylene Glycol 3350 17 GM Packet PO SCH (08:39)
[2020-04-24] MEDS: Magnesium Oxide 400 MG TAB PO SCH (08:39)
[2020-04-24] MEDS: Docusate 100 MG CAP PO SCH (08:39)
[2020-04-24] MEDS: Proctozone-HC 30 GM TUBE TOP SCH ×2 (08:43→20:28)
[2020-04-24] MEDS: Mirtazapine 15 MG TAB PO SCH (20:27)
[2020-04-24] MEDS: Lantus 1000 UNITS/10 ML VIAL SC SCH (20:28)
[2020-04-25] MEDS: Levothyroxine Sodium 88 MCG TAB PO SCH (05:53)
[2020-04-25] MEDS: risperiDONE 1 MG TAB PO SCH (08:58)
[2020-04-25] MEDS: Docusate 100 MG CAP PO SCH (08:58)
[2020-04-25] MEDS: Famotidine 20 MG TAB PO SCH (08:58)
[2020-04-25] MEDS: Magnesium Oxide 400 MG TAB PO SCH (08:58)
[2020-04-25] MEDS: Losartan Potassium 50 MG TAB PO SCH (08:58)
[2020-04-25] MEDS: Senokot S 8.6-50 MG TAB PO SCH ×2 (08:58→20:48)
[2020-04-25] MEDS: Tamsulosin HCl 0.4 MG CAP PO SCH (08:58)
[2020-04-25] MEDS: Proctozone-HC 30 GM TUBE TOP SCH ×2 (08:59→20:52)
[2020-04-25] MEDS: Polyethylene Glycol 3350 17 GM Packet PO SCH (08:59)
[2020-04-25] MEDS: HumaLOG 300 UNITS/3 ML VIAL SC PRN ×3 (12:23→20:45)
[2020-04-25] MEDS: Lantus 1000 UNITS/10 ML VIAL SC SCH (20:42)
[2020-04-25] MEDS: Mirtazapine 15 MG TAB PO SCH (20:48)
[2020-04-26] MEDS: Levothyroxine Sodium 88 MCG TAB PO SCH (05:09)
[2020-04-26] MEDS: Magnesium Oxide 400 MG TAB PO SCH (08:13)
[2020-04-26] MEDS: Tamsulosin HCl 0.4 MG CAP PO SCH (08:13)
[2020-04-26] MEDS: Famotidine 20 MG TAB PO SCH (08:13)
[2020-04-26] MEDS: Docusate 100 MG CAP PO SCH (08:13)
[2020-04-26] MEDS: Polyethylene Glycol 3350 17 GM Packet PO SCH (08:14)
[2020-04-26] MEDS: Senokot S 8.6-50 MG TAB PO SCH ×2 (08:14→21:26)
[2020-04-26] MEDS: risperiDONE 1 MG TAB PO SCH (08:14)
[2020-04-26] MEDS: Losartan Potassium 50 MG TAB PO SCH (08:14)
[2020-04-26] MEDS: Proctozone-HC 30 GM TUBE TOP SCH ×2 (08:15→21:24)
[2020-04-26] MEDS: HumaLOG 300 UNITS/3 ML VIAL SC PRN ×3 (12:01→21:35)
[2020-04-26] MEDS: Mirtazapine 15 MG TAB PO SCH (21:25)
[2020-04-26] MEDS: Lantus 1000 UNITS/10 ML VIAL SC SCH (21:36)
[2020-04-27] MEDS: Levothyroxine Sodium 88 MCG TAB PO SCH (05:42)
[2020-04-27] MEDS: Famotidine 20 MG TAB PO SCH (08:28)
[2020-04-27] MEDS: Losartan Potassium 50 MG TAB PO SCH (08:28)
[2020-04-27] MEDS: Tamsulosin HCl 0.4 MG CAP PO SCH (08:28)
[2020-04-27] MEDS: risperiDONE 1 MG TAB PO SCH (08:29)
[2020-04-27] MEDS: Docusate 100 MG CAP PO SCH (08:29)
[2020-04-27] MEDS: Senokot S 8.6-50 MG TAB PO SCH (08:29)
[2020-04-27] MEDS: Magnesium Oxide 400 MG TAB PO SCH (08:29)
[2020-04-27] MEDS: Proctozone-HC 30 GM TUBE TOP SCH (08:30)
[2020-04-27] MEDS: Polyethylene Glycol 3350 17 GM Packet PO SCH (08:31)
[2020-04-27 08:57] VITALS: BP 153/71; TEMP 97.6
[2020-04-27] MEDS: HumaLOG 300 UNITS/3 ML VIAL SC PRN (12:47)
--- NOTE | 2020-04-28 20:08 | DIS ---
DATE OF ADMISSION: 04/04/2020 DATE OF DISCHARGE: 04/27/2020 DISCHARGING PHYSICIAN: Jack Bucio MD. PRIMARY CARE PHYSICIAN: Dr. Steve Beth. DISCHARGE DISPOSITION: Back to home with family members. DISCHARGE INSTRUCTIONS: The patient to follow up with PCP within 1 week. The patient is to follow up with urologist within 1 to 2 weeks. The patient to follow up with neurosurgeon within 2 weeks. [facility] to start physical therapy and occupational therapy. The patient to ambulate with a walker at all times. Home Health to assist with Vazquez catheter changes. DISCHARGE DIAGNOSES: 1. Physical deconditioning, much improved. 2. Gait instability, improving. 3. Urinary tract infection, resolved. 4. Urinary retention with Vazquez catheter in place. 5. Metabolic encephalopathy, resolved. 6. Cervical spinal stenosis. 7. Type 2 diabetes, requiring long-term insulin. 8. Hypothyroidism. 9. Stage II decubitus ulcer to the sacrum, improving. DISCHARGE MEDICATIONS: 1. Lantus dose 5 units subcu daily. 2. Humalog 5 units t.i.d. 3. Flomax 0.4 daily. 4. Colace 100 mg daily. 5. Mag-Ox 400 mg daily. 6. MiraLAX 1 pack daily. 7. Pepcid 20 mg daily. 8. Remeron 15 mg at bedtime. 9. Risperdal 1 mg daily. 10. Imdur 30 mg daily. 11. Cozaar 50 mg daily. 12. Ranexa 1000 mg b.i.d. 13. Neurontin. BRIEF HOSPITAL COURSE: Ms. Lord Veras is a 79-year-old female, who was admitted to [facility] in [place] April 04, 2020, for skilled rehabilitation. The patient was initially admitted to [facility] in [place], March 05 to March 28. During hospitalization there, admission was complicated by hallucination and confusion. During her physical rehabilitation, it was noted she had stroke-like symptoms, so the patient was sent back to [facility] in [place]. She was seen by Neurological Service and she had an MRI of her brain with did not show any acute lesion and EEG did not show any seizure-like activity and the patient was noted to have a urinary tract infection, which she was treated with antibiotic for. The patient continued to have urinary retention and she was started on Flomax. She was transferred back to [place] for continuation of a skilled rehabilitation, but she continued to have episodes of hallucinations and confusion. In [place], an MRI of the cervical spine was done due to weakness to extremities and the urinary retention and that showed cervical spinal stenosis and multilevel degenerative changes. The patient's statin was discontinued due to that could be causing the myopathy and during hospitalization back here, we discontinued her gabapentin and this was the patient hallucinations, confusion and delusion resolved once gabapentin was discontinued. The patient's family was adamant on following up with Neurology Dr. Lutz during admission here, who recommended no nerve conduction study necessary and to just continue physical therapy. After appointment to Neurology, the patient was able to ambulate with Physical Therapy and she progressively improved. Family had wanted the patient to be admitted to hospice care, but she did not qualify for that, so she continued therapy and on day of discharge, she was able to ambulate with a rolling walker about 70 feet. The patient was subsequently discharged home with family in a stable condition. There were an advice to continue physical therapy and continue ambulation with a rolling walker. The patient was discharged home with family members in a stable condition. Discharge vital signs: Temperature 97.6, pulse 81, respiration 20, O2 saturation 100% on room air, blood pressure 153/71. Total length of time used to prepare and complete discharge summary was greater than 45 minutes. Job ID: [id number]
== END 2020-04-27 13:30 | disposition home health service (06) | DRG 947 ==
LOC: MADMS 21:49
PROVIDERS: ADMIT Family Medicine; ATTEND Family Medicine
DX: R53.81 Other malaise (principal); G93.41 Metabolic encephalopathy; N39.0 Urinary tract infection, site not specified; I25.10 Atherosclerotic heart disease of native coronary artery without angina pectoris; E03.9 Hypothyroidism, unspecified; E11.42 Type 2 diabetes mellitus with diabetic polyneuropathy; I10 Essential (primary) hypertension; E78.5 Hyperlipidemia, unspecified; L89.152 Pressure ulcer of sacral region, stage 2; M48.02 Spinal stenosis, cervical region; R26.89 Other abnormalities of gait and mobility; F22 Delusional disorders; R33.9 Retention of urine, unspecified; Z79.4 Long term (current) use of insulin; Z95.5 Presence of coronary angioplasty implant and graft; Z90.710 Acquired absence of both cervix and uterus; Z98.890 Other specified postprocedural states; Z90.49 Acquired absence of other specified parts of digestive tract; Z79.01 Long term (current) use of anticoagulants; Z79.899 Other long term (current) drug therapy; Z79.1 Long term (current) use of non-steroidal anti-inflammatories (NSAID); Z88.0 Allergy status to penicillin; Z88.6 Allergy status to analgesic agent
CPT/HCPCS: 36416; J1815; Q0162

== ENCOUNTER 2020-08-14 09:24 | Emergency (ER) | payer MEDICARE ==
[2020-08-14 10:26] LABS: #Basophils 0.1 thou/uL (0.0-0.2); #Eosinphils 0.2 thou/uL (0.0-0.7); #Lymphocytes 1.8 thou/uL (1.20-3.40); #Monocytes 0.5 thou/uL (0.11-0.59); %Basophils 0.8 % (0.0-1.0); %Eosinophils 1.7 % (0.0-10.0); %Lymphocytes 16.7 % (21.0-51.0); %Monocytes 4.9 % (0.0-10.0); %Neutrophils 75.9 % (42.0-75.0); Mean Corpuscular HGB CONC 33.3 g/dL (32.0-36.0); Mean Corpuscular Hemoglobin 31.6 pg (27.0-31.0); Mean Corpuscular Volume 94.9 fL (78.0-98.0); Mean Platelet Volume 7.7 fL (7.4-10.4); Platelet Count 153 thou/uL (130-400); RBC Distribution Width 11.5 % (11.5-14.5); Red Blood Cell (RBC) Count 4.12 mill/uL (4.20-5.40); White Blood Cell (WBC) Count 10.6 thou/uL (4.8-10.8)
[2020-08-14 10:37] LABS: ALT (SGPT) 8 U/L (8-55); AST (SGOT) 14 U/L (5-34); Albumin 3.4 g/dL (3.4-4.8); Alkaline Phosphatase 75 U/L (40-110); Anion Gap 14 mmol/L (10-20); BUN (Urea Nitrogen) 27 mg/dL (9.8-20.1); Bilirubin, Total 0.5 mg/dL (0.2-1.2); CK (CPK) 11 U/L (29-168); Calc. Creatinine Clearance 0 mL/min (70-130); Calcium 9.1 mg/dL (7.8-10.44); Carbon Dioxide 30 mmol/L (23-31); Chloride 98 mmol/L (98-107); Globulin 3.4 g/dL (2.4-3.5); Glucose 230 mg/dL (83-110); Protein, Total 6.8 g/dL (5.8-8.1); Sodium 137 mmol/L (136-145)
[2020-08-14 10:55] LABS: CKMB 0.8 ng/mL (0-6.6)
[2020-08-14] MEDS ORDERED: Aspirin Chewable 81 MG TAB ONE (11:04)
[2020-08-14 11:33] LABS: Bilirubin Negative (Negative); Blood, Urine Negative (Negative); Clarity Clear (Clear); Glucose, Urine (Dipstick) 250 mg/dL (Negative); Ketone, Urine Negative (Negative); Leukocyte Negative (Negative); Nitrite Negative (Negative); Protein, Urine (Dipstick) Negative (Neg-Trace); Urobilinogen 0.2 mg/dL (Less than 2)
[2020-08-14 11:44] LABS: Amphetamine Not Detected (NotDetected); Barbiturates Screen Not Detected (NotDetected); Benzodiazepine Screen Not Detected (NotDetected); Cocaine Metabolite Screen Not Detected (NotDetected); Medtox Control Line Valid? VALID (VALID); Methadone Not Detected (NotDetected); Methamphetamine Not Detected (NotDetected); Opiate Screen Not Detected (NotDetected); Oxycodone Screen Not Detected (NotDetected); Phencyclidine (PCP) Not Detected (NotDetected); THC/Cannabinoid Screen Not Detected (NotDetected); Tricyclic Screen Not Detected (NotDetected)
== END 2020-08-14 13:30 | disposition home or self-care (01) ==
LOC: MADERS 09:24
DX: E11.649 Type 2 diabetes mellitus with hypoglycemia without coma (principal); M62.81 Muscle weakness (generalized); E11.40 Type 2 diabetes mellitus with diabetic neuropathy, unspecified; E03.9 Hypothyroidism, unspecified; E78.5 Hyperlipidemia, unspecified; E78.00 Pure hypercholesterolemia, unspecified; I10 Essential (primary) hypertension; Z79.4 Long term (current) use of insulin; Z79.899 Other long term (current) drug therapy
CPT/HCPCS: 36415; 71045; 80053; 80306; 81003; 82550; 82553; 84484; 85025; 93005

== ENCOUNTER 2020-08-29 18:26 | Inpatient (IN) | payer MEDICARE ==
[2020-08-29] MEDS ORDERED: Ondansetron ODT 4 MG TAB PO PRN (21:23)
[2020-08-29] MEDS ORDERED: Cyclobenzaprine 10 MG TAB PO PRN (21:31)
[2020-08-29] MEDS ORDERED: Senokot 8.6 MG TAB PO PRN (21:31)
[2020-08-29] MEDS ORDERED: Dextrose 50% Abboject 50 ML SYRINGE SLOW IVP PRN (21:44)
[2020-08-29] MEDS ORDERED: Lantus 1000 UNITS/10 ML VIAL SC SCH (22:45)
[2020-08-30] MEDS ORDERED: Lantus 1000 UNITS/10 ML VIAL SC SCH (00:15)
[2020-08-30] MEDS: Levothyroxine Sodium 88 MCG TAB PO SCH (05:40)
[2020-08-30] MEDS: Famotidine 20 MG TAB PO SCH ×2 (08:12→20:47)
[2020-08-30] MEDS: Gabapentin 300 MG CAP PO SCH ×2 (08:12→20:47)
[2020-08-30] MEDS: HumaLOG 300 UNITS/3 ML VIAL SC SCH ×3 (08:13→17:05)
[2020-08-30] MEDS: Docusate 100 MG CAP PO SCH (08:13)
[2020-08-30] MEDS: Aspirin 81 mg Enteric Coated Tablet PO SCH ×2 (08:13→20:47)
[2020-08-30] MEDS: Losartan 25 MG TAB PO SCH (08:14)
[2020-08-30] MEDS: Magnesium Oxide 400 MG TAB PO SCH (12:26)
[2020-08-30] MEDS: Tamsulosin HCl 0.4 MG CAP PO SCH (12:26)
[2020-08-30] MEDS: Metoprolol Tartrate 25 MG TAB PO SCH (12:26)
[2020-08-30] MEDS: traMADol HCl 50 MG TAB PO PRN (17:03)
[2020-08-30] MEDS: Mirtazapine 15 MG TAB PO SCH (20:47)
[2020-08-30] MEDS: Lantus 1000 UNITS/10 ML VIAL SC SCH (20:51)
[2020-08-31] MEDS: Levothyroxine Sodium 88 MCG TAB PO SCH (05:07)
[2020-08-31] MEDS: traMADol HCl 50 MG TAB PO PRN ×2 (09:00→15:18)
[2020-08-31] MEDS: Famotidine 20 MG TAB PO SCH ×2 (09:09→22:06)
[2020-08-31] MEDS: Docusate 100 MG CAP PO SCH (09:09)
[2020-08-31] MEDS: Aspirin 81 mg Enteric Coated Tablet PO SCH ×2 (09:10→22:06)
[2020-08-31] MEDS: Gabapentin 300 MG CAP PO SCH ×2 (09:10→22:06)
[2020-08-31] MEDS: HumaLOG 300 UNITS/3 ML VIAL SC SCH ×3 (09:11→17:19)
[2020-08-31] MEDS: Losartan 25 MG TAB PO SCH (09:16)
[2020-08-31] MEDS: Magnesium Oxide 400 MG TAB PO SCH (11:50)
[2020-08-31] MEDS: Tamsulosin HCl 0.4 MG CAP PO SCH (11:50)
[2020-08-31] MEDS: Metoprolol Tartrate 25 MG TAB PO SCH (11:50)
[2020-08-31] MEDS: Lantus 1000 UNITS/10 ML VIAL SC SCH (22:07)
[2020-08-31] MEDS: Mirtazapine 15 MG TAB PO SCH (22:09)
[2020-09-01] MEDS: Levothyroxine Sodium 88 MCG TAB PO SCH (05:29)
[2020-09-01] MEDS: HumaLOG 300 UNITS/3 ML VIAL SC SCH ×3 (08:33→17:37)
[2020-09-01] MEDS: Docusate 100 MG CAP PO SCH (08:34)
[2020-09-01] MEDS: Gabapentin 300 MG CAP PO SCH ×2 (08:34→21:01)
[2020-09-01] MEDS: Famotidine 20 MG TAB PO SCH ×2 (08:34→21:00)
[2020-09-01] MEDS: Losartan 25 MG TAB PO SCH (08:35)
[2020-09-01] MEDS: Aspirin 81 mg Enteric Coated Tablet PO SCH ×2 (08:36→21:00)
[2020-09-01] MEDS: Magnesium Oxide 400 MG TAB PO SCH (12:22)
[2020-09-01] MEDS: Metoprolol Tartrate 25 MG TAB PO SCH (12:24)
[2020-09-01] MEDS: Tamsulosin HCl 0.4 MG CAP PO SCH (12:24)
[2020-09-01] MEDS: Mirtazapine 15 MG TAB PO SCH (21:02)
[2020-09-01] MEDS: Lantus 1000 UNITS/10 ML VIAL SC SCH (21:28)
[2020-09-02] MEDS: Levothyroxine Sodium 88 MCG TAB PO SCH (05:25)
[2020-09-02] MEDS: Gabapentin 300 MG CAP PO SCH ×2 (08:15→21:29)
[2020-09-02] MEDS: Docusate 100 MG CAP PO SCH (08:16)
[2020-09-02] MEDS: Famotidine 20 MG TAB PO SCH ×2 (08:16→21:28)
[2020-09-02] MEDS: Aspirin 81 mg Enteric Coated Tablet PO SCH ×2 (08:17→21:28)
[2020-09-02] MEDS: Losartan 25 MG TAB PO SCH (08:17)
[2020-09-02] MEDS: HumaLOG 300 UNITS/3 ML VIAL SC SCH ×3 (08:17→17:49)
[2020-09-02] MEDS: Tamsulosin HCl 0.4 MG CAP PO SCH (12:04)
[2020-09-02] MEDS: Magnesium Oxide 400 MG TAB PO SCH (12:04)
[2020-09-02] MEDS: Metoprolol Tartrate 25 MG TAB PO SCH (12:04)
[2020-09-02] MEDS: traMADol HCl 50 MG TAB PO PRN (16:10)
[2020-09-02] MEDS: Mirtazapine 15 MG TAB PO SCH (21:29)
[2020-09-02] MEDS: Lantus 1000 UNITS/10 ML VIAL SC SCH (23:28)
[2020-09-03] MEDS: Levothyroxine Sodium 88 MCG TAB PO SCH (06:00)
[2020-09-03] MEDS: HumaLOG 300 UNITS/3 ML VIAL SC SCH ×3 (08:34→17:00)
[2020-09-03] MEDS: Acetaminophen 325 MG TAB PO PRN (08:37)
[2020-09-03] MEDS: Docusate 100 MG CAP PO SCH (08:38)
[2020-09-03] MEDS: Famotidine 20 MG TAB PO SCH ×2 (08:39→20:06)
[2020-09-03] MEDS: Losartan 25 MG TAB PO SCH (08:39)
[2020-09-03] MEDS: Gabapentin 300 MG CAP PO SCH ×2 (08:39→20:07)
[2020-09-03] MEDS: Aspirin 81 mg Enteric Coated Tablet PO SCH ×2 (08:39→20:07)
[2020-09-03] MEDS: Tamsulosin HCl 0.4 MG CAP PO SCH (12:14)
[2020-09-03] MEDS: Magnesium Oxide 400 MG TAB PO SCH (12:14)
[2020-09-03] MEDS: Metoprolol Tartrate 25 MG TAB PO SCH (12:14)
[2020-09-03] MEDS: Nystatin 500,000 UNITS/5 ML UDCUP SSW SCH ×2 (17:00→20:11)
[2020-09-03] MEDS: Mirtazapine 15 MG TAB PO SCH (20:07)
[2020-09-03] MEDS: Lantus 1000 UNITS/10 ML VIAL SC SCH (20:14)
[2020-09-04] MEDS: Levothyroxine Sodium 88 MCG TAB PO SCH (06:26)
[2020-09-04] MEDS: traMADol HCl 50 MG TAB PO PRN (07:45)
[2020-09-04] MEDS: HumaLOG 300 UNITS/3 ML VIAL SC SCH ×3 (08:29→17:33)
[2020-09-04] MEDS: Gabapentin 300 MG CAP PO SCH ×2 (08:31→20:40)
[2020-09-04] MEDS: Losartan 25 MG TAB PO SCH (08:31)
[2020-09-04] MEDS: Aspirin 81 mg Enteric Coated Tablet PO SCH ×2 (08:31→20:41)
[2020-09-04] MEDS: Docusate 100 MG CAP PO SCH (08:31)
[2020-09-04] MEDS: Famotidine 20 MG TAB PO SCH ×2 (08:32→20:40)
[2020-09-04] MEDS: Nystatin 500,000 UNITS/5 ML UDCUP SSW SCH ×4 (08:32→22:06)
[2020-09-04] MEDS: Tamsulosin HCl 0.4 MG CAP PO SCH (12:20)
[2020-09-04] MEDS: Magnesium Oxide 400 MG TAB PO SCH (12:20)
[2020-09-04] MEDS: Metoprolol Tartrate 25 MG TAB PO SCH (12:20)
[2020-09-04] MEDS: Mirtazapine 15 MG TAB PO SCH (20:41)
[2020-09-04] MEDS: Lantus 1000 UNITS/10 ML VIAL SC SCH (20:43)
[2020-09-05] MEDS: Levothyroxine Sodium 88 MCG TAB PO SCH (05:19)
[2020-09-05] MEDS: Nystatin 500,000 UNITS/5 ML UDCUP SSW SCH ×4 (08:22→21:02)
[2020-09-05] MEDS: Famotidine 20 MG TAB PO SCH ×2 (08:22→20:48)
[2020-09-05] MEDS: Aspirin 81 mg Enteric Coated Tablet PO SCH ×2 (08:23→20:47)
[2020-09-05] MEDS: Docusate 100 MG CAP PO SCH (08:23)
[2020-09-05] MEDS: Losartan 25 MG TAB PO SCH (08:23)
[2020-09-05] MEDS: Gabapentin 300 MG CAP PO SCH ×2 (08:24→20:48)
[2020-09-05] MEDS: HumaLOG 300 UNITS/3 ML VIAL SC SCH ×3 (08:33→18:04)
[2020-09-05] MEDS: Tamsulosin HCl 0.4 MG CAP PO SCH (12:18)
[2020-09-05] MEDS: Magnesium Oxide 400 MG TAB PO SCH (12:18)
[2020-09-05] MEDS: Metoprolol Tartrate 25 MG TAB PO SCH (12:18)
[2020-09-05] MEDS: Mirtazapine 15 MG TAB PO SCH (20:49)
[2020-09-05] MEDS: Lantus 1000 UNITS/10 ML VIAL SC SCH (20:53)
[2020-09-06] MEDS: Levothyroxine Sodium 88 MCG TAB PO SCH (05:55)
[2020-09-06] MEDS: HumaLOG 300 UNITS/3 ML VIAL SC SCH ×3 (07:56→17:11)
[2020-09-06] MEDS: Famotidine 20 MG TAB PO SCH ×2 (08:07→21:29)
[2020-09-06] MEDS: Docusate 100 MG CAP PO SCH (08:07)
[2020-09-06] MEDS: Aspirin 81 mg Enteric Coated Tablet PO SCH ×2 (08:08→21:29)
[2020-09-06] MEDS: Gabapentin 300 MG CAP PO SCH ×2 (08:08→21:31)
[2020-09-06] MEDS: Losartan 25 MG TAB PO SCH (08:08)
[2020-09-06] MEDS: Nystatin 500,000 UNITS/5 ML UDCUP SSW SCH ×3 (08:27→17:10)
[2020-09-06] MEDS: traMADol HCl 50 MG TAB PO PRN (09:27)
[2020-09-06] MEDS: Tamsulosin HCl 0.4 MG CAP PO SCH (11:48)
[2020-09-06] MEDS: Magnesium Oxide 400 MG TAB PO SCH (11:48)
[2020-09-06] MEDS: Metoprolol Tartrate 25 MG TAB PO SCH (11:49)
[2020-09-06] MEDS: Lantus 1000 UNITS/10 ML VIAL SC SCH (21:30)
[2020-09-06] MEDS: Mirtazapine 15 MG TAB PO SCH (21:30)
[2020-09-07 06:23] LABS: Bilirubin Negative (Negative); Blood, Urine Moderate (Negative); Glucose, Urine (Dipstick) Negative (Negative); Ketone, Urine Negative (Negative); Leukocyte Small (Negative); Nitrite Negative (Negative); Protein, Urine (Dipstick) Negative (Neg-Trace); Urobilinogen 0.2 mg/dL (Less than 2); pH, Urine 5.5 (5.0-9.0)
[2020-09-07] MEDS: Levothyroxine Sodium 88 MCG TAB PO SCH (06:25)
[2020-09-07 06:28] LABS: Clarity Hazy (Clear)
[2020-09-07 06:29] LABS: Bacteria/HPF 1+ HPF (None Seen)
[2020-09-07] MEDS: HumaLOG 300 UNITS/3 ML VIAL SC SCH ×3 (08:41→17:24)
[2020-09-07] MEDS: Famotidine 20 MG TAB PO SCH ×2 (08:42→20:58)
[2020-09-07] MEDS: Docusate 100 MG CAP PO SCH (08:42)
[2020-09-07] MEDS: Gabapentin 300 MG CAP PO SCH ×2 (08:42→20:58)
[2020-09-07] MEDS: Aspirin 81 mg Enteric Coated Tablet PO SCH ×2 (08:42→20:58)
[2020-09-07] MEDS: Losartan 25 MG TAB PO SCH (08:43)
[2020-09-07] MEDS: Magnesium Oxide 400 MG TAB PO SCH (11:54)
[2020-09-07] MEDS: Metoprolol Tartrate 25 MG TAB PO SCH (11:54)
[2020-09-07] MEDS: Tamsulosin HCl 0.4 MG CAP PO SCH (11:54)
[2020-09-07] MEDS: Mirtazapine 15 MG TAB PO SCH (20:58)
[2020-09-07] MEDS: Lantus 1000 UNITS/10 ML VIAL SC SCH (21:06)
[2020-09-07] MEDS: traMADol HCl 50 MG TAB PO PRN (21:34)
[2020-09-08] MEDS: Levothyroxine Sodium 88 MCG TAB PO SCH (05:31)
[2020-09-08] MEDS: Polyethylene Glycol 3350 17 GM Packet PO PRN (05:41)
[2020-09-08] MEDS: Bisacodyl 5 MG TAB PO PRN (09:16)
[2020-09-08] MEDS: Aspirin 81 mg Enteric Coated Tablet PO SCH ×2 (09:16→21:00)
[2020-09-08] MEDS: Gabapentin 300 MG CAP PO SCH ×2 (09:16→21:01)
[2020-09-08] MEDS: Senokot S 8.6-50 MG TAB PO PRN (09:16)
[2020-09-08] MEDS: Famotidine 20 MG TAB PO SCH ×2 (09:16→21:02)
[2020-09-08] MEDS: Losartan 25 MG TAB PO SCH (09:17)
[2020-09-08] MEDS: Docusate 100 MG CAP PO SCH (09:17)
[2020-09-08] MEDS: HumaLOG 300 UNITS/3 ML VIAL SC SCH ×3 (09:18→17:16)
[2020-09-08] MEDS: Metoprolol Tartrate 25 MG TAB PO SCH (12:13)
[2020-09-08] MEDS: Tamsulosin HCl 0.4 MG CAP PO SCH (12:13)
[2020-09-08] MEDS: Magnesium Oxide 400 MG TAB PO SCH (12:13)
[2020-09-08] MEDS: Lantus 1000 UNITS/10 ML VIAL SC SCH (21:00)
[2020-09-08] MEDS: Mirtazapine 15 MG TAB PO SCH (21:02)
[2020-09-09] MEDS: Levothyroxine Sodium 88 MCG TAB PO SCH (05:12)
[2020-09-09] MEDS: traMADol HCl 50 MG TAB PO PRN ×2 (06:17→17:19)
[2020-09-09] MEDS: HumaLOG 300 UNITS/3 ML VIAL SC SCH ×3 (09:45→17:16)
[2020-09-09] MEDS: Docusate 100 MG CAP PO SCH (09:46)
[2020-09-09] MEDS: Famotidine 20 MG TAB PO SCH ×2 (09:46→20:53)
[2020-09-09] MEDS: Aspirin 81 mg Enteric Coated Tablet PO SCH ×2 (09:46→20:53)
[2020-09-09] MEDS: Gabapentin 300 MG CAP PO SCH ×2 (09:47→20:53)
[2020-09-09] MEDS: Losartan 25 MG TAB PO SCH (09:47)
[2020-09-09] MEDS: Magnesium Oxide 400 MG TAB PO SCH (12:22)
[2020-09-09] MEDS: Tamsulosin HCl 0.4 MG CAP PO SCH (12:22)
[2020-09-09] MEDS: Metoprolol Tartrate 25 MG TAB PO SCH (12:22)
[2020-09-09] MEDS ORDERED: metFORMIN 500 MG TAB ONE ×2 (17:06→17:07)
[2020-09-09] MEDS: Mirtazapine 15 MG TAB PO SCH (20:54)
[2020-09-09] MEDS: Lantus 1000 UNITS/10 ML VIAL SC SCH (21:08)
[2020-09-10] MEDS: Levothyroxine Sodium 88 MCG TAB PO SCH (05:31)
[2020-09-10] MEDS: traMADol HCl 50 MG TAB PO PRN (07:29)
[2020-09-10] MEDS: HumaLOG 300 UNITS/3 ML VIAL SC SCH ×3 (09:24→17:18)
[2020-09-10] MEDS: Famotidine 20 MG TAB PO SCH ×2 (09:25→20:58)
[2020-09-10] MEDS: Aspirin 81 mg Enteric Coated Tablet PO SCH ×2 (09:26→20:58)
[2020-09-10] MEDS: Gabapentin 300 MG CAP PO SCH ×2 (09:26→20:58)
[2020-09-10] MEDS: Losartan 25 MG TAB PO SCH (09:26)
[2020-09-10] MEDS: Docusate 100 MG CAP PO SCH (09:27)
[2020-09-10] MEDS: Metoprolol Tartrate 25 MG TAB PO SCH (12:32)
[2020-09-10] MEDS: Tamsulosin HCl 0.4 MG CAP PO SCH (12:32)
[2020-09-10] MEDS: Magnesium Oxide 400 MG TAB PO SCH (12:32)
[2020-09-10] MEDS: Lantus 1000 UNITS/10 ML VIAL SC SCH (20:56)
[2020-09-10] MEDS: Mirtazapine 15 MG TAB PO SCH (20:57)
[2020-09-10] MEDS: Ciprofloxacin 500 MG TAB PO SCH (22:52)
[2020-09-11] MEDS: traMADol HCl 50 MG TAB PO PRN ×2 (04:13→10:09)
[2020-09-11] MEDS: Ciprofloxacin 500 MG TAB PO SCH ×3 (05:36→21:07)
[2020-09-11] MEDS: Levothyroxine Sodium 88 MCG TAB PO SCH (05:37)
[2020-09-11] MEDS: HumaLOG 300 UNITS/3 ML VIAL SC SCH ×3 (08:37→18:02)
[2020-09-11] MEDS: Gabapentin 300 MG CAP PO SCH ×2 (08:40→20:56)
[2020-09-11] MEDS: Aspirin 81 mg Enteric Coated Tablet PO SCH ×2 (08:40→20:55)
[2020-09-11] MEDS: Losartan 25 MG TAB PO SCH (08:40)
[2020-09-11] MEDS: Docusate 100 MG CAP PO SCH (08:40)
[2020-09-11] MEDS: Famotidine 20 MG TAB PO SCH ×2 (08:41→20:57)
[2020-09-11] MEDS: Magnesium Oxide 400 MG TAB PO SCH (12:29)
[2020-09-11] MEDS: Metoprolol Tartrate 25 MG TAB PO SCH (12:29)
[2020-09-11] MEDS: Tamsulosin HCl 0.4 MG CAP PO SCH (12:29)
[2020-09-11] MEDS: Mirtazapine 15 MG TAB PO SCH (20:56)
[2020-09-11] MEDS: Lantus 1000 UNITS/10 ML VIAL SC SCH (21:00)
[2020-09-12] MEDS: Ciprofloxacin 500 MG TAB PO SCH ×2 (05:08→19:43)
[2020-09-12] MEDS: Levothyroxine Sodium 88 MCG TAB PO SCH (05:08)
[2020-09-12] MEDS: traMADol HCl 50 MG TAB PO PRN (07:39)
[2020-09-12] MEDS: HumaLOG 300 UNITS/3 ML VIAL SC SCH ×3 (08:41→17:44)
[2020-09-12] MEDS: Aspirin 81 mg Enteric Coated Tablet PO SCH ×2 (08:43→20:28)
[2020-09-12] MEDS: Famotidine 20 MG TAB PO SCH ×2 (08:43→20:28)
[2020-09-12] MEDS: Gabapentin 300 MG CAP PO SCH ×2 (08:43→20:30)
[2020-09-12] MEDS: Losartan 25 MG TAB PO SCH (08:43)
[2020-09-12] MEDS: Docusate 100 MG CAP PO SCH (08:43)
[2020-09-12] MEDS: Metoprolol Tartrate 25 MG TAB PO SCH (12:06)
[2020-09-12] MEDS: Magnesium Oxide 400 MG TAB PO SCH (12:06)
[2020-09-12] MEDS: Tamsulosin HCl 0.4 MG CAP PO SCH (12:06)
[2020-09-12] MEDS: clonazePAM 0.5 MG TAB PO PRN (12:57)
[2020-09-12] MEDS: Mirtazapine 15 MG TAB PO SCH (20:30)
[2020-09-12] MEDS: Lantus 1000 UNITS/10 ML VIAL SC SCH (22:11)
[2020-09-13] MEDS: Ciprofloxacin 500 MG TAB PO SCH ×2 (05:53→20:17)
[2020-09-13] MEDS: Levothyroxine Sodium 88 MCG TAB PO SCH (05:53)
[2020-09-13] MEDS: traMADol HCl 50 MG TAB PO PRN ×2 (05:57→20:28)
[2020-09-13] MEDS: Polyethylene Glycol 3350 17 GM Packet PO PRN (05:59)
[2020-09-13] MEDS: HumaLOG 300 UNITS/3 ML VIAL SC SCH ×3 (08:23→17:02)
[2020-09-13] MEDS: Aspirin 81 mg Enteric Coated Tablet PO SCH ×2 (08:25→20:16)
[2020-09-13] MEDS: Gabapentin 300 MG CAP PO SCH ×2 (08:25→20:17)
[2020-09-13] MEDS: Docusate 100 MG CAP PO SCH (08:25)
[2020-09-13] MEDS: Famotidine 20 MG TAB PO SCH ×2 (08:26→20:16)
[2020-09-13] MEDS: Losartan 25 MG TAB PO SCH (08:26)
[2020-09-13] MEDS: Magnesium Oxide 400 MG TAB PO SCH (12:11)
[2020-09-13] MEDS: clonazePAM 0.5 MG TAB PO PRN (12:11)
[2020-09-13] MEDS: Metoprolol Tartrate 25 MG TAB PO SCH (12:11)
[2020-09-13] MEDS: Tamsulosin HCl 0.4 MG CAP PO SCH (12:11)
[2020-09-13] MEDS: Bisacodyl 5 MG TAB PO PRN (13:40)
[2020-09-13] MEDS: Mirtazapine 15 MG TAB PO SCH (20:16)
[2020-09-13] MEDS: Senokot S 8.6-50 MG TAB PO PRN (20:28)
[2020-09-13] MEDS: Lantus 1000 UNITS/10 ML VIAL SC SCH (21:21)
[2020-09-14] MEDS: Levothyroxine Sodium 88 MCG TAB PO SCH (05:11)
[2020-09-14] MEDS: Ciprofloxacin 500 MG TAB PO SCH ×2 (05:11→20:58)
[2020-09-14] MEDS: traMADol HCl 50 MG TAB PO PRN (09:02)
[2020-09-14] MEDS: Losartan 25 MG TAB PO SCH (09:03)
[2020-09-14] MEDS: Famotidine 20 MG TAB PO SCH ×2 (09:03→20:59)
[2020-09-14] MEDS: Gabapentin 300 MG CAP PO SCH ×2 (09:03→20:59)
[2020-09-14] MEDS: Aspirin 81 mg Enteric Coated Tablet PO SCH ×2 (09:03→20:58)
[2020-09-14] MEDS: Docusate 100 MG CAP PO SCH (09:03)
[2020-09-14] MEDS: HumaLOG 300 UNITS/3 ML VIAL SC SCH ×3 (09:04→18:10)
[2020-09-14] MEDS: Tamsulosin HCl 0.4 MG CAP PO SCH (12:12)
[2020-09-14] MEDS: Metoprolol Tartrate 25 MG TAB PO SCH (12:12)
[2020-09-14] MEDS: Magnesium Oxide 400 MG TAB PO SCH (12:12)
[2020-09-14] MEDS: clonazePAM 0.5 MG TAB PO PRN (13:07)
[2020-09-14] MEDS: Mirtazapine 15 MG TAB PO SCH (21:00)
[2020-09-14] MEDS: Lantus 1000 UNITS/10 ML VIAL SC SCH (22:01)
[2020-09-15] MEDS: Levothyroxine Sodium 88 MCG TAB PO SCH (05:52)
[2020-09-15] MEDS: Ciprofloxacin 500 MG TAB PO SCH (05:52)
[2020-09-15] MEDS: HumaLOG 300 UNITS/3 ML VIAL SC SCH ×3 (08:42→16:57)
[2020-09-15] MEDS: Aspirin 81 mg Enteric Coated Tablet PO SCH ×2 (08:43→20:59)
[2020-09-15] MEDS: Gabapentin 300 MG CAP PO SCH ×2 (08:43→21:00)
[2020-09-15] MEDS: Docusate 100 MG CAP PO SCH (08:43)
[2020-09-15] MEDS: Famotidine 20 MG TAB PO SCH ×2 (08:44→20:59)
[2020-09-15] MEDS: Losartan 25 MG TAB PO SCH (08:44)
[2020-09-15] MEDS: Magnesium Oxide 400 MG TAB PO SCH (12:00)
[2020-09-15] MEDS: Polyethylene Glycol 3350 17 GM Packet PO PRN (12:57)
[2020-09-15] MEDS: Metoprolol Tartrate 25 MG TAB PO SCH (12:58)
[2020-09-15] MEDS: Tamsulosin HCl 0.4 MG CAP PO SCH (12:58)
[2020-09-15] MEDS: Lantus 1000 UNITS/10 ML VIAL SC SCH (20:57)
[2020-09-15] MEDS: Mirtazapine 15 MG TAB PO SCH (21:00)
[2020-09-16] MEDS: Levothyroxine Sodium 88 MCG TAB PO SCH (05:28)
[2020-09-16] MEDS: HumaLOG 300 UNITS/3 ML VIAL SC SCH ×3 (09:00→16:59)
[2020-09-16] MEDS: Aspirin 81 mg Enteric Coated Tablet PO SCH ×2 (09:02→20:37)
[2020-09-16] MEDS: Famotidine 20 MG TAB PO SCH ×2 (09:02→20:38)
[2020-09-16] MEDS: Docusate 100 MG CAP PO SCH (09:02)
[2020-09-16] MEDS: Losartan 25 MG TAB PO SCH (09:03)
[2020-09-16] MEDS: Gabapentin 300 MG CAP PO SCH ×2 (09:04→20:38)
[2020-09-16] MEDS: Polyethylene Glycol 3350 17 GM Packet PO PRN (09:42)
[2020-09-16] MEDS: Magnesium Oxide 400 MG TAB PO SCH (12:05)
[2020-09-16] MEDS: Tamsulosin HCl 0.4 MG CAP PO SCH (12:05)
[2020-09-16] MEDS: Metoprolol Tartrate 25 MG TAB PO SCH (12:05)
[2020-09-16] MEDS: Mirtazapine 15 MG TAB PO SCH (20:38)
[2020-09-16] MEDS: Lantus 1000 UNITS/10 ML VIAL SC SCH (21:20)
[2020-09-17] MEDS: Levothyroxine Sodium 88 MCG TAB PO SCH (05:39)
[2020-09-17] MEDS: HumaLOG 300 UNITS/3 ML VIAL SC SCH ×3 (08:02→16:34)
[2020-09-17] MEDS: Docusate 100 MG CAP PO SCH (08:05)
[2020-09-17] MEDS: Aspirin 81 mg Enteric Coated Tablet PO SCH ×2 (08:05→20:46)
[2020-09-17] MEDS: Gabapentin 300 MG CAP PO SCH ×2 (08:06→20:47)
[2020-09-17] MEDS: Famotidine 20 MG TAB PO SCH ×2 (08:06→20:46)
[2020-09-17] MEDS: Losartan 25 MG TAB PO SCH (08:14)
[2020-09-17] MEDS: Tamsulosin HCl 0.4 MG CAP PO SCH (11:46)
[2020-09-17] MEDS: clonazePAM 0.5 MG TAB PO PRN (11:46)
[2020-09-17] MEDS: Magnesium Oxide 400 MG TAB PO SCH (11:49)
[2020-09-17] MEDS: Metoprolol Tartrate 25 MG TAB PO SCH (11:49)
[2020-09-17] MEDS: traMADol HCl 50 MG TAB PO PRN (15:35)
[2020-09-17] MEDS: Mirtazapine 15 MG TAB PO SCH (20:47)
[2020-09-17] MEDS: Lantus 1000 UNITS/10 ML VIAL SC SCH (20:48)
[2020-09-18 05:17] LABS: #Basophils 0.1 thou/uL (0.0-0.2); #Eosinphils 0.3 thou/uL (0.0-0.7); #Lymphocytes 1.8 thou/uL (1.20-3.40); #Monocytes 0.4 thou/uL (0.11-0.59); #Neutrophils 2.8 thou/uL (1.40-6.50); %Eosinophils 5.4 % (0.0-10.0); %Lymphocytes 33.5 % (21.0-51.0); %Monocytes 6.9 % (0.0-10.0); %Neutrophils 53.2 % (42.0-75.0); Hemoglobin 9.8 g/dL (12.0-16.0); Mean Corpuscular HGB CONC 30.9 g/dL (32.0-36.0); Mean Corpuscular Hemoglobin 31.3 pg (27.0-31.0); Mean Corpuscular Volume 101.4 fL (78.0-98.0); Mean Platelet Volume 6.5 fL (7.4-10.4); Platelet Count 228 thou/uL (130-400); RBC Distribution Width 13.5 % (11.5-14.5); Red Blood Cell (RBC) Count 3.14 mill/uL (4.20-5.40); White Blood Cell (WBC) Count 5.3 thou/uL (4.8-10.8)
[2020-09-18 05:32] LABS: Anion Gap 16 mmol/L (10-20); BUN (Urea Nitrogen) 23 mg/dL (9.8-20.1); Calc. Creatinine Clearance 54 mL/min (70-130); Calcium 8.8 mg/dL (7.8-10.44); Chloride 102 mmol/L (98-107); Glucose 167 mg/dL (83-110); Potassium 4.9 mmol/L (3.5-5.1); Sodium 141 mmol/L (136-145)
[2020-09-18] MEDS: Levothyroxine Sodium 88 MCG TAB PO SCH (05:32)
[2020-09-18 06:16] LABS: Carbon Dioxide 28 mmol/L (23-31)
[2020-09-18] MEDS: Aspirin 81 mg Enteric Coated Tablet PO SCH ×2 (09:18→20:33)
[2020-09-18] MEDS: Polyethylene Glycol 3350 17 GM Packet PO PRN (09:18)
[2020-09-18] MEDS: Losartan 25 MG TAB PO SCH (09:18)
[2020-09-18] MEDS: Bisacodyl 5 MG TAB PO PRN (09:19)
[2020-09-18] MEDS: Gabapentin 300 MG CAP PO SCH ×2 (09:20→20:33)
[2020-09-18] MEDS: Famotidine 20 MG TAB PO SCH ×2 (09:20→20:33)
[2020-09-18] MEDS: Docusate 100 MG CAP PO SCH (09:20)
[2020-09-18] MEDS: HumaLOG 300 UNITS/3 ML VIAL SC SCH ×4 (09:22→17:22)
[2020-09-18] MEDS: Magnesium Oxide 400 MG TAB PO SCH (11:56)
[2020-09-18] MEDS: Metoprolol Tartrate 25 MG TAB PO SCH (11:56)
[2020-09-18] MEDS: Tamsulosin HCl 0.4 MG CAP PO SCH (11:57)
[2020-09-18 12:02] LABS: Hemoglobin A1c 6.2 % (4.0-6.0)
[2020-09-18] MEDS: Mirtazapine 15 MG TAB PO SCH (20:33)
[2020-09-18] MEDS: Lantus 1000 UNITS/10 ML VIAL SC SCH (21:48)
[2020-09-18 22:42] LABS: Bilirubin Negative (Negative); Blood, Urine Negative (Negative); Clarity Clear (Clear); Glucose, Urine (Dipstick) 100 mg/dL (Negative); Ketone, Urine Negative (Negative); Leukocyte Negative (Negative); Nitrite Negative (Negative); Protein, Urine (Dipstick) Negative (Neg-Trace); Specific Gravity, Urine 1.015 (1.005-1.030); Urobilinogen 0.2 mg/dL (Less than 2)
[2020-09-18 22:44] LABS: Urine Culture Reflex No No
[2020-09-18 22:59] LABS: RBC/HPF 0-3 HPF (0-3); Squamous Epithelial 0-3 HPF (0-3); WBC/HPF 0-3 HPF (0-3)
[2020-09-18 23:00] LABS: Bacteria/HPF Rare-Few HPF (None Seen)
[2020-09-19] MEDS: Levothyroxine Sodium 88 MCG TAB PO SCH (05:30)
[2020-09-19] MEDS: traMADol HCl 50 MG TAB PO PRN (07:54)
[2020-09-19] MEDS: Famotidine 20 MG TAB PO SCH ×2 (08:13→20:24)
[2020-09-19] MEDS: Gabapentin 300 MG CAP PO SCH ×2 (08:13→20:24)
[2020-09-19] MEDS: Polyethylene Glycol 3350 17 GM Packet PO PRN (08:13)
[2020-09-19] MEDS: Aspirin 81 mg Enteric Coated Tablet PO SCH ×2 (08:13→20:24)
[2020-09-19] MEDS: Docusate 100 MG CAP PO SCH (08:13)
[2020-09-19] MEDS: Losartan 25 MG TAB PO SCH (08:14)
[2020-09-19] MEDS: HumaLOG 300 UNITS/3 ML VIAL SC SCH ×3 (08:15→18:02)
[2020-09-19] MEDS ORDERED: Oxybutynin ER 5 MG TAB PO SCH (10:15)
[2020-09-19] MEDS: Metoprolol Tartrate 25 MG TAB PO SCH (12:13)
[2020-09-19] MEDS: Magnesium Oxide 400 MG TAB PO SCH (12:13)
[2020-09-19] MEDS: Tamsulosin HCl 0.4 MG CAP PO SCH (12:13)
[2020-09-19] MEDS: Mirtazapine 15 MG TAB PO SCH (20:25)
[2020-09-19] MEDS: Lantus 1000 UNITS/10 ML VIAL SC SCH (20:25)
[2020-09-20] MEDS: Levothyroxine Sodium 88 MCG TAB PO SCH (05:28)
[2020-09-20] MEDS: Gabapentin 300 MG CAP PO SCH ×2 (08:45→20:13)
[2020-09-20] MEDS: Aspirin 81 mg Enteric Coated Tablet PO SCH ×2 (08:46→20:12)
[2020-09-20] MEDS: Oxybutynin ER 5 MG TAB PO SCH (08:46)
[2020-09-20] MEDS: Losartan 25 MG TAB PO SCH (08:46)
[2020-09-20] MEDS: Famotidine 20 MG TAB PO SCH ×2 (08:46→20:12)
[2020-09-20] MEDS: Docusate 100 MG CAP PO SCH (08:46)
[2020-09-20] MEDS: HumaLOG 300 UNITS/3 ML VIAL SC SCH ×3 (08:47→17:10)
[2020-09-20] MEDS: traMADol HCl 50 MG TAB PO PRN ×2 (09:41→17:09)
[2020-09-20] MEDS: Tamsulosin HCl 0.4 MG CAP PO SCH (11:47)
[2020-09-20] MEDS: Magnesium Oxide 400 MG TAB PO SCH (11:47)
[2020-09-20] MEDS: Metoprolol Tartrate 25 MG TAB PO SCH (11:47)
[2020-09-20] MEDS: Polyethylene Glycol 3350 17 GM Packet PO PRN (19:25)
[2020-09-20] MEDS: Mirtazapine 15 MG TAB PO SCH (20:13)
[2020-09-20] MEDS: Lantus 1000 UNITS/10 ML VIAL SC SCH (20:53)
[2020-09-21] MEDS: Levothyroxine Sodium 88 MCG TAB PO SCH (06:18)
[2020-09-21] MEDS: Famotidine 20 MG TAB PO SCH ×2 (08:33→20:42)
[2020-09-21] MEDS: Aspirin 81 mg Enteric Coated Tablet PO SCH ×2 (08:33→20:42)
[2020-09-21] MEDS: Oxybutynin ER 5 MG TAB PO SCH (08:33)
[2020-09-21] MEDS: Gabapentin 300 MG CAP PO SCH ×2 (08:34→20:42)
[2020-09-21] MEDS: Losartan 25 MG TAB PO SCH (08:34)
[2020-09-21] MEDS: Docusate 100 MG CAP PO SCH (08:34)
[2020-09-21] MEDS: HumaLOG 300 UNITS/3 ML VIAL SC SCH ×3 (08:39→17:03)
[2020-09-21] MEDS: Magnesium Oxide 400 MG TAB PO SCH (11:58)
[2020-09-21] MEDS: Tamsulosin HCl 0.4 MG CAP PO SCH (11:58)
[2020-09-21] MEDS: traMADol HCl 50 MG TAB PO PRN (11:58)
[2020-09-21] MEDS: Metoprolol Tartrate 25 MG TAB PO SCH (12:08)
[2020-09-21] MEDS: Lantus 1000 UNITS/10 ML VIAL SC SCH (20:41)
[2020-09-21] MEDS: Mirtazapine 15 MG TAB PO SCH (20:42)
[2020-09-22] MEDS: Levothyroxine Sodium 88 MCG TAB PO SCH (05:22)
[2020-09-22] MEDS: HumaLOG 300 UNITS/3 ML VIAL SC SCH ×3 (09:45→17:13)
[2020-09-22] MEDS: Gabapentin 300 MG CAP PO SCH ×2 (09:46→20:19)
[2020-09-22] MEDS: Famotidine 20 MG TAB PO SCH ×2 (09:47→20:19)
[2020-09-22] MEDS: Aspirin 81 mg Enteric Coated Tablet PO SCH ×2 (09:47→20:19)
[2020-09-22] MEDS: Docusate 100 MG CAP PO SCH (09:47)
[2020-09-22] MEDS: Oxybutynin ER 5 MG TAB PO SCH (09:47)
[2020-09-22] MEDS: Losartan 25 MG TAB PO SCH (09:48)
[2020-09-22] MEDS: Magnesium Oxide 400 MG TAB PO SCH (12:15)
[2020-09-22] MEDS: Metoprolol Tartrate 25 MG TAB PO SCH (12:15)
[2020-09-22] MEDS: Tamsulosin HCl 0.4 MG CAP PO SCH (12:15)
[2020-09-22] MEDS: Polyethylene Glycol 3350 17 GM Packet PO PRN (18:03)
[2020-09-22] MEDS: Mirtazapine 15 MG TAB PO SCH (20:20)
[2020-09-22] MEDS: Lantus 1000 UNITS/10 ML VIAL SC SCH (20:21)
[2020-09-23] MEDS: Levothyroxine Sodium 88 MCG TAB PO SCH (05:00)
[2020-09-23] MEDS: HumaLOG 300 UNITS/3 ML VIAL SC SCH ×3 (09:25→17:05)
[2020-09-23] MEDS: Gabapentin 300 MG CAP PO SCH ×2 (09:26→20:38)
[2020-09-23] MEDS: Oxybutynin ER 5 MG TAB PO SCH (09:26)
[2020-09-23] MEDS: Aspirin 81 mg Enteric Coated Tablet PO SCH ×2 (09:26→20:37)
[2020-09-23] MEDS: Losartan 25 MG TAB PO SCH (09:26)
[2020-09-23] MEDS: Famotidine 20 MG TAB PO SCH ×2 (09:26→20:37)
[2020-09-23] MEDS: Docusate 100 MG CAP PO SCH (09:32)
[2020-09-23] MEDS: Magnesium Oxide 400 MG TAB PO SCH (12:15)
[2020-09-23] MEDS: Tamsulosin HCl 0.4 MG CAP PO SCH (12:15)
[2020-09-23] MEDS: Metoprolol Tartrate 25 MG TAB PO SCH (12:15)
[2020-09-23] MEDS: traMADol HCl 50 MG TAB PO PRN (17:51)
[2020-09-23] MEDS: Mirtazapine 15 MG TAB PO SCH (20:39)
[2020-09-23] MEDS: Lantus 1000 UNITS/10 ML VIAL SC SCH (20:43)
[2020-09-24] MEDS: Levothyroxine Sodium 88 MCG TAB PO SCH (05:51)
[2020-09-24] MEDS: HumaLOG 300 UNITS/3 ML VIAL SC SCH ×3 (08:17→17:17)
[2020-09-24] MEDS: Aspirin 81 mg Enteric Coated Tablet PO SCH ×2 (08:18→20:54)
[2020-09-24] MEDS: Gabapentin 300 MG CAP PO SCH ×2 (08:18→20:54)
[2020-09-24] MEDS: Docusate 100 MG CAP PO SCH (08:18)
[2020-09-24] MEDS: Oxybutynin ER 5 MG TAB PO SCH (08:18)
[2020-09-24] MEDS: Losartan 25 MG TAB PO SCH (08:18)
[2020-09-24] MEDS: Famotidine 20 MG TAB PO SCH ×2 (08:19→20:55)
[2020-09-24] MEDS: Acetaminophen 325 MG TAB PO PRN (09:11)
[2020-09-24] MEDS: traMADol HCl 50 MG TAB PO PRN (09:12)
[2020-09-24] MEDS: Metoprolol Tartrate 25 MG TAB PO SCH (11:46)
[2020-09-24] MEDS: Magnesium Oxide 400 MG TAB PO SCH (11:46)
[2020-09-24] MEDS: Tamsulosin HCl 0.4 MG CAP PO SCH (11:46)
[2020-09-24] MEDS: Lantus 1000 UNITS/10 ML VIAL SC SCH (20:52)
[2020-09-24] MEDS: Mirtazapine 15 MG TAB PO SCH (20:55)
[2020-09-25] MEDS: Levothyroxine Sodium 88 MCG TAB PO SCH (05:38)
[2020-09-25] MEDS: Oxybutynin ER 5 MG TAB PO SCH (08:15)
[2020-09-25] MEDS: Docusate 100 MG CAP PO SCH (08:15)
[2020-09-25] MEDS: Aspirin 81 mg Enteric Coated Tablet PO SCH ×2 (08:15→20:34)
[2020-09-25] MEDS: Gabapentin 300 MG CAP PO SCH ×2 (08:16→20:35)
[2020-09-25] MEDS: Losartan 25 MG TAB PO SCH (08:16)
[2020-09-25] MEDS: Famotidine 20 MG TAB PO SCH ×2 (08:16→20:34)
[2020-09-25] MEDS: HumaLOG 300 UNITS/3 ML VIAL SC SCH ×3 (08:18→16:53)
[2020-09-25] MEDS: Metoprolol Tartrate 25 MG TAB PO SCH (11:57)
[2020-09-25] MEDS: Tamsulosin HCl 0.4 MG CAP PO SCH (11:57)
[2020-09-25] MEDS: Magnesium Oxide 400 MG TAB PO SCH (11:57)
[2020-09-25] MEDS: traMADol HCl 50 MG TAB PO PRN (14:42)
[2020-09-25] MEDS: Lantus 1000 UNITS/10 ML VIAL SC SCH (20:32)
[2020-09-25] MEDS: Mirtazapine 15 MG TAB PO SCH (20:35)
[2020-09-25] MEDS: Polyethylene Glycol 3350 17 GM Packet PO PRN (20:49)
[2020-09-26] MEDS: Levothyroxine Sodium 88 MCG TAB PO SCH (05:49)
[2020-09-26] MEDS: Aspirin 81 mg Enteric Coated Tablet PO SCH ×3 (08:50→21:39)
[2020-09-26] MEDS: Losartan 25 MG TAB PO SCH (08:50)
[2020-09-26] MEDS: Gabapentin 300 MG CAP PO SCH ×3 (08:50→21:38)
[2020-09-26] MEDS: Famotidine 20 MG TAB PO SCH ×3 (08:50→21:39)
[2020-09-26] MEDS: Docusate 100 MG CAP PO SCH ×2 (08:50→11:47)
[2020-09-26] MEDS: HumaLOG 300 UNITS/3 ML VIAL SC SCH ×3 (08:50→17:15)
[2020-09-26] MEDS: Oxybutynin ER 5 MG TAB PO SCH ×2 (08:51→11:47)
[2020-09-26] MEDS: Tamsulosin HCl 0.4 MG CAP PO SCH (11:48)
[2020-09-26] MEDS: Magnesium Oxide 400 MG TAB PO SCH (11:48)
[2020-09-26] MEDS: Metoprolol Tartrate 25 MG TAB PO SCH (11:52)
[2020-09-26] MEDS: Acetaminophen 325 MG TAB PO PRN (13:24)
[2020-09-26] MEDS ORDERED: traMADol HCl 50 MG TAB PO PRN (14:18)
[2020-09-26] MEDS: traMADol HCl 50 MG TAB PO PRN (15:15)
[2020-09-26] MEDS: Mirtazapine 15 MG TAB PO SCH (21:39)
[2020-09-26] MEDS: Lantus 1000 UNITS/10 ML VIAL SC SCH (21:43)
[2020-09-27] MEDS: Levothyroxine Sodium 88 MCG TAB PO SCH (05:52)
[2020-09-27] MEDS: traMADol HCl 50 MG TAB PO PRN (07:32)
[2020-09-27] MEDS: HumaLOG 300 UNITS/3 ML VIAL SC SCH ×3 (08:59→17:09)
[2020-09-27] MEDS: Losartan 25 MG TAB PO SCH (09:00)
[2020-09-27] MEDS: Gabapentin 300 MG CAP PO SCH ×2 (09:00→21:23)
[2020-09-27] MEDS: Aspirin 81 mg Enteric Coated Tablet PO SCH ×2 (09:00→21:23)
[2020-09-27] MEDS: Docusate 100 MG CAP PO SCH (09:00)
[2020-09-27] MEDS: Famotidine 20 MG TAB PO SCH ×2 (09:00→21:23)
[2020-09-27] MEDS: Oxybutynin ER 5 MG TAB PO SCH (09:00)
[2020-09-27] MEDS: Magnesium Oxide 400 MG TAB PO SCH (12:10)
[2020-09-27] MEDS: Tamsulosin HCl 0.4 MG CAP PO SCH (12:10)
[2020-09-27] MEDS: Metoprolol Tartrate 25 MG TAB PO SCH (12:10)
[2020-09-27] MEDS: Polyethylene Glycol 3350 17 GM Packet PO PRN (12:12)
[2020-09-27] MEDS: Lantus 1000 UNITS/10 ML VIAL SC SCH (21:24)
[2020-09-27] MEDS: Mirtazapine 15 MG TAB PO SCH (21:24)
[2020-09-28] MEDS: Levothyroxine Sodium 88 MCG TAB PO SCH (05:50)
[2020-09-28] MEDS: Aspirin 81 mg Enteric Coated Tablet PO SCH ×2 (09:12→20:06)
[2020-09-28] MEDS: Oxybutynin ER 5 MG TAB PO SCH (09:13)
[2020-09-28] MEDS: Gabapentin 300 MG CAP PO SCH ×2 (09:13→20:06)
[2020-09-28] MEDS: Losartan 25 MG TAB PO SCH (09:13)
[2020-09-28] MEDS: Docusate 100 MG CAP PO SCH (09:13)
[2020-09-28] MEDS: Famotidine 20 MG TAB PO SCH ×2 (09:13→20:06)
[2020-09-28] MEDS: HumaLOG 300 UNITS/3 ML VIAL SC SCH ×3 (09:14→17:16)
[2020-09-28] MEDS: Polyethylene Glycol 3350 17 GM Packet PO PRN (11:56)
[2020-09-28] MEDS: Metoprolol Tartrate 25 MG TAB PO SCH (11:56)
[2020-09-28] MEDS: Tamsulosin HCl 0.4 MG CAP PO SCH (11:56)
[2020-09-28] MEDS: Magnesium Oxide 400 MG TAB PO SCH (11:56)
[2020-09-28] MEDS: Mirtazapine 15 MG TAB PO SCH (20:06)
[2020-09-28] MEDS: Lantus 1000 UNITS/10 ML VIAL SC SCH (20:53)
[2020-09-28] MEDS: traMADol HCl 50 MG TAB PO PRN (23:50)
[2020-09-29] MEDS: Levothyroxine Sodium 88 MCG TAB PO SCH (05:57)
[2020-09-29] MEDS: Oxybutynin ER 5 MG TAB PO SCH (08:04)
[2020-09-29] MEDS: Aspirin 81 mg Enteric Coated Tablet PO SCH ×2 (08:04→21:27)
[2020-09-29] MEDS: Losartan 25 MG TAB PO SCH (08:04)
[2020-09-29] MEDS: Famotidine 20 MG TAB PO SCH ×2 (08:05→21:28)
[2020-09-29] MEDS: Gabapentin 300 MG CAP PO SCH ×2 (08:05→21:26)
[2020-09-29] MEDS: HumaLOG 300 UNITS/3 ML VIAL SC SCH ×3 (08:08→17:04)
[2020-09-29] MEDS: Docusate 100 MG CAP PO SCH (08:10)
[2020-09-29] MEDS: Tamsulosin HCl 0.4 MG CAP PO SCH (12:28)
[2020-09-29] MEDS: Magnesium Oxide 400 MG TAB PO SCH (12:29)
[2020-09-29] MEDS: Metoprolol Tartrate 25 MG TAB PO SCH (12:29)
[2020-09-29] MEDS: Mirtazapine 15 MG TAB PO SCH (21:26)
[2020-09-29] MEDS: Polyethylene Glycol 3350 17 GM Packet PO PRN (21:28)
[2020-09-29] MEDS: Lantus 1000 UNITS/10 ML VIAL SC SCH (21:31)
[2020-09-30] MEDS: Gabapentin 300 MG CAP PO SCH ×2 (09:00→21:04)
[2020-09-30] MEDS: Famotidine 20 MG TAB PO SCH ×2 (09:00→21:05)
[2020-09-30] MEDS: Aspirin 81 mg Enteric Coated Tablet PO SCH ×2 (09:00→21:05)
[2020-09-30] MEDS: Docusate 100 MG CAP PO SCH (09:00)
[2020-09-30] MEDS: Losartan 25 MG TAB PO SCH (09:00)
[2020-09-30] MEDS: Oxybutynin ER 5 MG TAB PO SCH (09:00)
[2020-09-30] MEDS: HumaLOG 300 UNITS/3 ML VIAL SC SCH ×3 (09:00→17:19)
[2020-09-30] MEDS: Levothyroxine Sodium 88 MCG TAB PO SCH (09:00)
[2020-09-30] MEDS: Acetaminophen 325 MG TAB PO PRN (10:51)
[2020-09-30] MEDS: Magnesium Oxide 400 MG TAB PO SCH (14:03)
[2020-09-30] MEDS: Metoprolol Tartrate 25 MG TAB PO SCH (14:03)
[2020-09-30] MEDS: Tamsulosin HCl 0.4 MG CAP PO SCH (14:03)
[2020-09-30] MEDS: Mirtazapine 15 MG TAB PO SCH (21:05)
[2020-09-30] MEDS: Lantus 1000 UNITS/10 ML VIAL SC SCH (21:06)
[2020-10-01] MEDS: Levothyroxine Sodium 88 MCG TAB PO SCH (05:21)
[2020-10-01 06:38] LABS: Bilirubin Negative (Negative); Blood, Urine Negative (Negative); Clarity Clear (Clear); Glucose, Urine (Dipstick) Negative (Negative); Ketone, Urine Negative (Negative); Leukocyte Moderate (Negative); Nitrite Positive (Negative); Protein, Urine (Dipstick) Negative (Neg-Trace); Urobilinogen 0.2 mg/dL (Less than 2); pH, Urine 5.5 (5.0-9.0)
[2020-10-01 06:43] LABS: Bacteria/HPF 1+ HPF (None Seen); RBC/HPF 0-3 HPF (0-3); Squamous Epithelial 0-3 HPF (0-3); Urine Culture Reflex Yes Yes
[2020-10-01] MEDS: Oxybutynin ER 5 MG TAB PO SCH (08:33)
[2020-10-01] MEDS: Famotidine 20 MG TAB PO SCH ×2 (08:33→20:26)
[2020-10-01] MEDS: Aspirin 81 mg Enteric Coated Tablet PO SCH ×2 (08:33→20:26)
[2020-10-01] MEDS: Gabapentin 300 MG CAP PO SCH ×2 (08:33→20:26)
[2020-10-01] MEDS: Losartan 25 MG TAB PO SCH (08:33)
[2020-10-01] MEDS: Docusate 100 MG CAP PO SCH (08:33)
[2020-10-01] MEDS: HumaLOG 300 UNITS/3 ML VIAL SC SCH ×3 (08:35→16:58)
[2020-10-01 09:57] VITALS: BMI 33.4
[2020-10-01] MEDS: Metoprolol Tartrate 25 MG TAB PO SCH (12:13)
[2020-10-01] MEDS: Tamsulosin HCl 0.4 MG CAP PO SCH (12:13)
[2020-10-01] MEDS: Magnesium Oxide 400 MG TAB PO SCH (12:13)
[2020-10-01] MEDS: Mirtazapine 15 MG TAB PO SCH (20:26)
[2020-10-01] MEDS: Lantus 1000 UNITS/10 ML VIAL SC SCH (21:29)
[2020-10-02] MEDS: traMADol HCl 50 MG TAB PO PRN ×2 (00:28→09:38)
[2020-10-02] MEDS: Levothyroxine Sodium 88 MCG TAB PO SCH (05:41)
[2020-10-02] MEDS: Aspirin 81 mg Enteric Coated Tablet PO SCH ×2 (08:52→21:03)
[2020-10-02] MEDS: HumaLOG 300 UNITS/3 ML VIAL SC SCH ×3 (08:52→17:12)
[2020-10-02] MEDS: Docusate 100 MG CAP PO SCH (08:53)
[2020-10-02] MEDS: Oxybutynin ER 5 MG TAB PO SCH (08:53)
[2020-10-02] MEDS: Famotidine 20 MG TAB PO SCH ×2 (08:53→21:03)
[2020-10-02] MEDS: Gabapentin 300 MG CAP PO SCH ×2 (08:53→21:03)
[2020-10-02] MEDS: Losartan 25 MG TAB PO SCH (08:53)
[2020-10-02] MEDS: Magnesium Oxide 400 MG TAB PO SCH (14:06)
[2020-10-02] MEDS: Metoprolol Tartrate 25 MG TAB PO SCH (14:06)
[2020-10-02] MEDS: Mirtazapine 15 MG TAB PO SCH (21:04)
[2020-10-02] MEDS: Lantus 1000 UNITS/10 ML VIAL SC SCH (22:00)
[2020-10-03] MEDS: Levothyroxine Sodium 88 MCG TAB PO SCH (05:07)
[2020-10-03] MEDS: Oxybutynin ER 5 MG TAB PO SCH (08:13)
[2020-10-03] MEDS: Famotidine 20 MG TAB PO SCH ×2 (08:14→20:10)
[2020-10-03] MEDS: Losartan 25 MG TAB PO SCH (08:14)
[2020-10-03] MEDS: Gabapentin 300 MG CAP PO SCH ×2 (08:14→20:10)
[2020-10-03] MEDS: Aspirin 81 mg Enteric Coated Tablet PO SCH ×2 (08:14→20:10)
[2020-10-03] MEDS: Docusate 100 MG CAP PO SCH (08:15)
[2020-10-03] MEDS: HumaLOG 300 UNITS/3 ML VIAL SC SCH ×3 (08:18→17:00)
[2020-10-03] MEDS: Metoprolol Tartrate 25 MG TAB PO SCH (11:57)
[2020-10-03] MEDS: Magnesium Oxide 400 MG TAB PO SCH (11:57)
[2020-10-03] MEDS: Mirtazapine 15 MG TAB PO SCH (20:11)
[2020-10-03] MEDS: Lantus 1000 UNITS/10 ML VIAL SC SCH (20:12)
[2020-10-04] MEDS: Levothyroxine Sodium 88 MCG TAB PO SCH (05:29)
[2020-10-04] MEDS: HumaLOG 300 UNITS/3 ML VIAL SC SCH ×2 (08:30→12:11)
[2020-10-04] MEDS: Gabapentin 300 MG CAP PO SCH (08:32)
[2020-10-04] MEDS: Aspirin 81 mg Enteric Coated Tablet PO SCH (08:32)
[2020-10-04] MEDS: Famotidine 20 MG TAB PO SCH (08:32)
[2020-10-04] MEDS: Losartan 25 MG TAB PO SCH (08:32)
[2020-10-04] MEDS: Oxybutynin ER 5 MG TAB PO SCH (08:32)
[2020-10-04] MEDS: Docusate 100 MG CAP PO SCH (08:32)
[2020-10-04] MEDS: traMADol HCl 50 MG TAB PO PRN (08:33)
[2020-10-04 10:19] VITALS: TEMP 97.8
[2020-10-04] MEDS: Metoprolol Tartrate 25 MG TAB PO SCH (12:20)
[2020-10-04] MEDS: Magnesium Oxide 400 MG TAB PO SCH (12:20)
[2020-10-04 12:32] VITALS: BP 144/49
[2020-10-05] MEDS ORDERED: Metoprolol Tartrate 25 MG TAB PO SCH (12:00)
== END 2020-10-04 14:43 | disposition home or self-care (01) | DRG 92 ==
LOC: MADMS 18:26
PROVIDERS: ADMIT Family Medicine; ATTEND Family Medicine
DX: R26.81 Unsteadiness on feet (principal); I25.110 Atherosclerotic heart disease of native coronary artery with unstable angina pectoris; F32.1 Major depressive disorder, single episode, moderate; N30.00 Acute cystitis without hematuria; S72.142D Displaced intertrochanteric fracture of left femur, subsequent encounter for closed fracture with routine healing; S72.002D Fracture of unspecified part of neck of left femur, subsequent encounter for closed fracture with routine healing; E03.9 Hypothyroidism, unspecified; Z79.4 Long term (current) use of insulin; Z95.5 Presence of coronary angioplasty implant and graft; I10 Essential (primary) hypertension; E11.42 Type 2 diabetes mellitus with diabetic polyneuropathy; Z79.82 Long term (current) use of aspirin; R53.81 Other malaise; E78.2 Mixed hyperlipidemia; F41.1 Generalized anxiety disorder; R35.0 Frequency of micturition; B96.1 Klebsiella pneumoniae [K. pneumoniae] as the cause of diseases classified elsewhere; E11.649 Type 2 diabetes mellitus with hypoglycemia without coma; K59.00 Constipation, unspecified; N32.81 Overactive bladder; R07.9 Chest pain, unspecified
CPT/HCPCS: 36415; 36416; 80048; 81001; 83036; 85025; 87077; 87086; 87186; J1815

== ENCOUNTER 2020-11-01 09:14 | Inpatient (IN) | payer MEDICARE ==
[~2020-11-01 09:14] MED LIST changes: -Iopamidol 370 76% 125 ML VIAL FS ONE; +Sodium Chloride 0.9% 1,000 ML BAG ONE
[2020-11-01 10:46] LABS: #Basophils 0.1 thou/uL (0.0-0.2); #Eosinphils 0.2 thou/uL (0.0-0.7); #Lymphocytes 1.8 thou/uL (1.20-3.40); #Monocytes 0.7 thou/uL (0.11-0.59); #Neutrophils 6.2 thou/uL (1.40-6.50); %Basophils 0.8 % (0.0-1.0); %Eosinophils 2.3 % (0.0-10.0); %Lymphocytes 20.2 % (21.0-51.0); %Monocytes 7.5 % (0.0-10.0); %Neutrophils 69.2 % (42.0-75.0); Hemoglobin 12.5 g/dL (12.0-16.0); Mean Corpuscular HGB CONC 31.1 g/dL (32.0-36.0); Mean Corpuscular Hemoglobin 30.2 pg (27.0-31.0); Mean Corpuscular Volume 97.1 fL (78.0-98.0); Mean Platelet Volume 7.2 fL (7.4-10.4); Platelet Count 265 thou/uL (130-400); RBC Distribution Width 12.4 % (11.5-14.5); Red Blood Cell (RBC) Count 4.15 mill/uL (4.20-5.40); White Blood Cell (WBC) Count 8.9 thou/uL (4.8-10.8)
[2020-11-01 10:53] LABS: Anion Gap 16 mmol/L (10-20); Carbon Dioxide 29 mmol/L (23-31); Chloride 96 mmol/L (98-107); Sodium 135 mmol/L (136-145)
[2020-11-01 10:54] LABS: ALT (SGPT) 8 U/L (8-55); AST (SGOT) 11 U/L (5-34); Albumin 3.4 g/dL (3.4-4.8); Alkaline Phosphatase 125 U/L (40-110); BUN (Urea Nitrogen) 32 mg/dL (9.8-20.1); Bilirubin, Total 0.6 mg/dL (0.2-1.2); Calc. Creatinine Clearance 0 mL/min (70-130); Calcium 9.6 mg/dL (7.8-10.44); Globulin 4.2 g/dL (2.4-3.5); Glucose 414 mg/dL (83-110); Lipase 18 U/L (8-78); Protein, Total 7.6 g/dL (5.8-8.1)
[2020-11-01 11:04] LABS: Bilirubin Negative (Negative); Blood, Urine Large (Negative); Clarity Cloudy (Clear); Glucose, Urine (Dipstick) >=1000 mg/dL (Negative); Ketone, Urine Negative (Negative); Leukocyte Large (Negative); Nitrite Negative (Negative); Protein, Urine (Dipstick) Trace mg/dL (Neg-Trace); Urobilinogen 0.2 mg/dL (Less than 2)
[2020-11-01] MEDS ORDERED: Insulin Regular 300 UNITS/3 ML VIAL ONE (11:08)
[2020-11-01] MEDS ORDERED: SUMAtriptan Succinate 6 MG/0.5 ML VIAL ONE (11:08)
[2020-11-01] MEDS ORDERED: Sodium Chloride 0.9% 0 ML ONE (11:08)
[2020-11-01 11:10] LABS: Bacteria/HPF 4+ HPF (None Seen); RBC/HPF Greater than 50 HPF (0-3); Squamous Epithelial None Seen HPF (0-3); WBC/HPF Greater Than 50 HPF (0-3)
[2020-11-01] MEDS ORDERED: cefTRIAXone\\ROCEPHIN 1 GM VIAL ONE (11:30)
[2020-11-01] MEDS ORDERED: Sodium Chloride 0.9% 100 ML ONE (11:30)
[2020-11-01 12:20] LABS: Base Excess-Venous 3.1 mmol/L (-2.0 to 3.0); Bicarbonate (HCO3v) 28.9 mmol/L (22.0-28.0); CO2 Tension (PvCO2) 48.7 mmHg (42.0-51.0); Calcium, Ionized 1.18 mmol/L (1.15-1.33); Hemoglobin - Calc 11.9 g/dL (12.0-16.0); Potassium 5.4 mmol/L (3.5-5.1); T. Carbon Dioxide 30.4 mmol/L (22.0-28.0); vO2 Saturation-calc 89.5 % (60.0-85.0)
[2020-11-01] MEDS ORDERED: Acetaminophen 325 MG TAB PO PRN ×2 (13:31→14:33)
[2020-11-01] MEDS ORDERED: Ondansetron ODT 4 MG TAB PO PRN (13:31)
[2020-11-01] MEDS ORDERED: Sodium Chloride 0.9% 20 ML ONE (13:37)
[2020-11-01] MEDS ORDERED: Sodium Chloride 0.9% 1,000 ML ONE (13:37)
[2020-11-01] MEDS: Sodium Chloride 0.9% 1,000 ML IV SCH (13:54)
[2020-11-01 14:33] LABS: Anion Gap 15 mmol/L (10-20); BUN (Urea Nitrogen) 30 mg/dL (9.8-20.1); Calc. Creatinine Clearance 43 mL/min (70-130); Calcium 8.8 mg/dL (7.8-10.44); Carbon Dioxide 25 mmol/L (23-31); Chloride 102 mmol/L (98-107); Glucose 225 mg/dL (83-110); Potassium 5.2 mmol/L (3.5-5.1); Sodium 137 mmol/L (136-145)
[2020-11-01] MEDS ORDERED: Polyethylene Glycol 3350 17 GM Packet PO PRN (14:33)
[2020-11-01] MEDS ORDERED: clonazePAM 0.5 MG TAB PO PRN (14:33)
[2020-11-01] MEDS ORDERED: traMADol HCl 50 MG TAB PO PRN (14:33)
[2020-11-01] MEDS ORDERED: Dextrose 50% Abboject 50 ML SYRINGE SLOW IVP PRN (14:35)
[2020-11-01] MEDS: HumaLOG 300 UNITS/3 ML VIAL SC SCH (17:33)
[2020-11-01] MEDS: Fluconazole 100 MG TAB PO SCH (17:33)
[2020-11-01] MEDS: Insulin Regular 300 UNITS/3 ML VIAL SC PRN ×2 (17:36→21:12)
[2020-11-01] MEDS: Aspirin 81 mg Enteric Coated Tablet PO SCH (20:29)
[2020-11-01] MEDS: Gabapentin 300 MG CAP PO SCH (20:30)
[2020-11-01] MEDS: Famotidine 20 MG TAB PO SCH (20:31)
[2020-11-01] MEDS: Mirtazapine 15 MG TAB PO SCH (20:31)
[2020-11-01] MEDS ORDERED: Famotidine In NaCl,Iso-Osm/PF 20 MG in Premix Bag 1 BAG IVPB SCH (21:00)
[2020-11-01] MEDS: Lantus 1000 UNITS/10 ML VIAL SC SCH (21:11)
[2020-11-01] MEDS: cefTRIAXone\\ROCEPHIN 1 GM in Sodium Chloride 0.9% 100 ML IVPB SCH (23:02)
[2020-11-01] MEDS: Nystatin Powder 15 GM BOT TOP PRN (23:09)
[2020-11-02] MEDS: Sodium Chloride 0.9% 1,000 ML IV SCH (03:30)
[2020-11-02] MEDS: Levothyroxine Sodium 88 MCG TAB PO SCH (05:40)
[2020-11-02 07:09] LABS: Anion Gap 12 mmol/L (10-20); BUN (Urea Nitrogen) 28 mg/dL (9.8-20.1); Calc. Creatinine Clearance 47 mL/min (70-130); Calcium 8.6 mg/dL (7.8-10.44); Carbon Dioxide 26 mmol/L (23-31); Chloride 104 mmol/L (98-107); Glucose 240 mg/dL (83-110); Potassium 4.8 mmol/L (3.5-5.1); Sodium 137 mmol/L (136-145)
[2020-11-02 07:14] LABS: Band 1 % (5-11); Eosinophils 4 % (0-10); Hemoglobin 11.1 g/dL (12.0-16.0); Lymphocytes 15 % (21-51); MDiff Complete? YES; Mean Corpuscular HGB CONC 30.3 g/dL (32.0-36.0); Mean Corpuscular Hemoglobin 29.8 pg (27.0-31.0); Mean Corpuscular Volume 98.2 fL (78.0-98.0); Mean Platelet Volume 7.2 fL (7.4-10.4); Monocytes 6 % (0-10); Neutrophil 73 % (42-75); Platelet Count 247 thou/uL (130-400); RBC Distribution Width 12.5 % (11.5-14.5); Red Blood Cell (RBC) Count 3.74 mill/uL (4.20-5.40); White Blood Cell (WBC) Count 9.5 thou/uL (4.8-10.8)
[2020-11-02] MEDS: Docusate 100 MG CAP PO SCH (08:30)
[2020-11-02] MEDS: HumaLOG 300 UNITS/3 ML VIAL SC SCH ×3 (08:30→17:41)
[2020-11-02] MEDS: Insulin Regular 300 UNITS/3 ML VIAL SC PRN ×4 (08:32→21:26)
[2020-11-02] MEDS: Aspirin 81 mg Enteric Coated Tablet PO SCH ×2 (08:33→21:21)
[2020-11-02] MEDS: Gabapentin 300 MG CAP PO SCH ×2 (08:33→21:19)
[2020-11-02] MEDS: Oxybutynin ER 5 MG TAB PO SCH (08:33)
[2020-11-02] MEDS ORDERED: Losartan 25 MG TAB PO SCH (09:00)
[2020-11-02] MEDS: cefTRIAXone\\ROCEPHIN 1 GM in Sodium Chloride 0.9% 100 ML IVPB SCH ×2 (12:00→22:53)
[2020-11-02] MEDS: Magnesium Oxide 400 MG TAB PO SCH (12:00)
[2020-11-02] MEDS: Metoprolol Tartrate 25 MG TAB PO SCH (12:00)
[2020-11-02] MEDS: Fluconazole 100 MG TAB PO SCH (17:40)
[2020-11-02] MEDS: Nystatin Powder 15 GM BOT TOP PRN (18:20)
[2020-11-02] MEDS: Famotidine 20 MG TAB PO SCH (21:20)
[2020-11-02] MEDS: Mirtazapine 15 MG TAB PO SCH (21:21)
[2020-11-02] MEDS: Lantus 1000 UNITS/10 ML VIAL SC SCH (21:26)
[2020-11-03] MEDS: Levothyroxine Sodium 88 MCG TAB PO SCH (05:37)
[2020-11-03 05:53] LABS: Anion Gap 14 mmol/L (10-20); BUN (Urea Nitrogen) 28 mg/dL (9.8-20.1); Calc. Creatinine Clearance 46 mL/min (70-130); Calcium 9.3 mg/dL (7.8-10.44); Carbon Dioxide 28 mmol/L (23-31); Chloride 105 mmol/L (98-107); Glucose 130 mg/dL (83-110); Sodium 142 mmol/L (136-145)
[2020-11-03 06:00] LABS: Eosinophils 3 % (0-10); Hemoglobin 12.1 g/dL (12.0-16.0); Lymphocytes 25 % (21-51); MDiff Complete? YES; Mean Corpuscular HGB CONC 31.5 g/dL (32.0-36.0); Mean Corpuscular Hemoglobin 30.7 pg (27.0-31.0); Mean Corpuscular Volume 97.4 fL (78.0-98.0); Mean Platelet Volume 7.2 fL (7.4-10.4); Monocytes 1 % (0-10); Neutrophil 71 % (42-75); Platelet Count 246 thou/uL (130-400); RBC Distribution Width 12.6 % (11.5-14.5); Red Blood Cell (RBC) Count 3.94 mill/uL (4.20-5.40); White Blood Cell (WBC) Count 7.8 thou/uL (4.8-10.8)
[2020-11-03] MEDS: HumaLOG 300 UNITS/3 ML VIAL SC SCH ×3 (10:17→16:43)
[2020-11-03] MEDS: cefTRIAXone\\ROCEPHIN 1 GM in Sodium Chloride 0.9% 100 ML IVPB SCH (10:18)
[2020-11-03] MEDS: Docusate 100 MG CAP PO SCH (10:20)
[2020-11-03] MEDS: Aspirin 81 mg Enteric Coated Tablet PO SCH ×2 (10:20→21:09)
[2020-11-03] MEDS: Oxybutynin ER 5 MG TAB PO SCH (10:20)
[2020-11-03] MEDS: Gabapentin 300 MG CAP PO SCH ×2 (10:21→21:09)
[2020-11-03] MEDS: Magnesium Oxide 400 MG TAB PO SCH (12:19)
[2020-11-03] MEDS: Metoprolol Tartrate 25 MG TAB PO SCH (12:23)
[2020-11-03] MEDS: Fluconazole 100 MG TAB PO SCH (16:40)
[2020-11-03] MEDS: Insulin Regular 300 UNITS/3 ML VIAL SC PRN (16:43)
[2020-11-03] MEDS: Famotidine 20 MG TAB PO SCH (21:08)
[2020-11-03] MEDS: Mirtazapine 15 MG TAB PO SCH (21:08)
[2020-11-03] MEDS: Cefdinir 300 MG CAP PO SCH (21:09)
[2020-11-03] MEDS: Lantus 1000 UNITS/10 ML VIAL SC SCH (21:11)
[2020-11-04 05:32] LABS: #Basophils 0.1 thou/uL (0.0-0.2); #Eosinphils 0.5 thou/uL (0.0-0.7); #Lymphocytes 2.2 thou/uL (1.20-3.40); #Monocytes 0.4 thou/uL (0.11-0.59); #Neutrophils 4.6 thou/uL (1.40-6.50); %Basophils 1.1 % (0.0-1.0); %Eosinophils 6.4 % (0.0-10.0); %Lymphocytes 28.3 % (21.0-51.0); %Monocytes 5.7 % (0.0-10.0); %Neutrophils 58.5 % (42.0-75.0); Hemoglobin 11.7 g/dL (12.0-16.0); Mean Corpuscular HGB CONC 30.4 g/dL (32.0-36.0); Mean Corpuscular Hemoglobin 29.6 pg (27.0-31.0); Mean Corpuscular Volume 97.4 fL (78.0-98.0); Mean Platelet Volume 7.4 fL (7.4-10.4); Platelet Count 246 thou/uL (130-400); RBC Distribution Width 12.6 % (11.5-14.5); Red Blood Cell (RBC) Count 3.96 mill/uL (4.20-5.40); White Blood Cell (WBC) Count 7.8 thou/uL (4.8-10.8)
[2020-11-04] MEDS: Levothyroxine Sodium 88 MCG TAB PO SCH (05:45)
[2020-11-04 05:47] LABS: Anion Gap 14 mmol/L (10-20); BUN (Urea Nitrogen) 25 mg/dL (9.8-20.1); Calc. Creatinine Clearance 46 mL/min (70-130); Calcium 9.5 mg/dL (7.8-10.44); Carbon Dioxide 31 mmol/L (23-31); Chloride 104 mmol/L (98-107); Glucose 144 mg/dL (83-110); Potassium 5.2 mmol/L (3.5-5.1); Sodium 144 mmol/L (136-145)
[2020-11-04] MEDS: HumaLOG 300 UNITS/3 ML VIAL SC SCH ×2 (08:41→12:10)
[2020-11-04] MEDS: Gabapentin 300 MG CAP PO SCH (09:32)
[2020-11-04] MEDS: Aspirin 81 mg Enteric Coated Tablet PO SCH (09:32)
[2020-11-04] MEDS: Docusate 100 MG CAP PO SCH (09:32)
[2020-11-04] MEDS: Cefdinir 300 MG CAP PO SCH (09:32)
[2020-11-04] MEDS: Oxybutynin ER 5 MG TAB PO SCH (09:32)
[2020-11-04] MEDS: Insulin Regular 300 UNITS/3 ML VIAL SC PRN (12:12)
[2020-11-04] MEDS: Magnesium Oxide 400 MG TAB PO SCH (12:15)
[2020-11-04] MEDS: Metoprolol Tartrate 25 MG TAB PO SCH (12:15)
[2020-11-04 12:32] VITALS: TEMP 97.6
[2020-11-04] MEDS ORDERED: Zinc Oxide 20% Oint 30 GM TUBE TOP PRN (15:31)
[2020-11-04 16:03] VITALS: BP 148/62
== END 2020-11-04 16:40 | disposition home health service (06) | DRG 638 ==
LOC: MADERS 09:14 → MADMS 12:54
PROVIDERS: ADMIT Family Medicine; ATTEND Family Medicine
DX: E11.65 Type 2 diabetes mellitus with hyperglycemia (principal); N39.0 Urinary tract infection, site not specified; N17.9 Acute kidney failure, unspecified; F32.1 Major depressive disorder, single episode, moderate; I25.110 Atherosclerotic heart disease of native coronary artery with unstable angina pectoris; E11.42 Type 2 diabetes mellitus with diabetic polyneuropathy; E87.5 Hyperkalemia; E03.9 Hypothyroidism, unspecified; B37.2 Candidiasis of skin and nail; R44.1 Visual hallucinations; R53.81 Other malaise; R26.81 Unsteadiness on feet; F41.9 Anxiety disorder, unspecified; R53.1 Weakness; Z96.642 Presence of left artificial hip joint; B96.20 Unspecified Escherichia coli [E. coli] as the cause of diseases classified elsewhere; I12.9 Hypertensive chronic kidney disease with stage 1 through stage 4 chronic kidney disease, or unspecified chronic kidney disease; E11.22 Type 2 diabetes mellitus with diabetic chronic kidney disease; N32.81 Overactive bladder; L89.152 Pressure ulcer of sacral region, stage 2; N18.9 Chronic kidney disease, unspecified; E78.2 Mixed hyperlipidemia; Z88.0 Allergy status to penicillin; Z88.5 Allergy status to narcotic agent; Z88.8 Allergy status to other drugs, medicaments and biological substances; Z79.82 Long term (current) use of aspirin; Z79.4 Long term (current) use of insulin; Z79.899 Other long term (current) drug therapy; Z90.710 Acquired absence of both cervix and uterus; Z90.49 Acquired absence of other specified parts of digestive tract; Z98.890 Other specified postprocedural states
CPT/HCPCS: 36415; 36416; 51701; 71045; 80048; 80053; 81003; 81015; 82330; 82803; 83690; 84443; 84484; 85007; 85025; 85027; 87040; 87077; 87086; 87186; 93005; 94760; 96365; 96375; J0696; J1815; J3030; J3490; J7050

== ENCOUNTER 2020-11-09 12:21 | Emergency (ER) | payer MEDICARE ==
[2020-11-09 13:06] LABS: #Basophils 0.1 thou/uL (0.0-0.2); #Eosinphils 0.3 thou/uL (0.0-0.7); #Lymphocytes 1.7 thou/uL (1.20-3.40); #Monocytes 0.4 thou/uL (0.11-0.59); #Neutrophils 6.7 thou/uL (1.40-6.50); %Basophils 0.9 % (0.0-1.0); %Eosinophils 2.9 % (0.0-10.0); %Lymphocytes 18.4 % (21.0-51.0); %Monocytes 4.6 % (0.0-10.0); %Neutrophils 73.2 % (42.0-75.0); Hemoglobin 11.7 g/dL (12.0-16.0); Mean Corpuscular HGB CONC 30.5 g/dL (32.0-36.0); Mean Corpuscular Hemoglobin 30.1 pg (27.0-31.0); Mean Corpuscular Volume 98.7 fL (78.0-98.0); Mean Platelet Volume 6.9 fL (7.4-10.4); Platelet Count 262 thou/uL (130-400); Red Blood Cell (RBC) Count 3.88 mill/uL (4.20-5.40); White Blood Cell (WBC) Count 9.1 thou/uL (4.8-10.8)
[2020-11-09 13:20] LABS: ALT (SGPT) 8 U/L (8-55); AST (SGOT) 15 U/L (5-34); Albumin 3.3 g/dL (3.4-4.8); Alkaline Phosphatase 104 U/L (40-110); Anion Gap 17 mmol/L (10-20); BUN (Urea Nitrogen) 28 mg/dL (9.8-20.1); Bilirubin, Total 0.4 mg/dL (0.2-1.2); Calc. Creatinine Clearance 0 mL/min (70-130); Calcium 9.6 mg/dL (7.8-10.44); Carbon Dioxide 27 mmol/L (23-31); Chloride 99 mmol/L (98-107); Globulin 3.9 g/dL (2.4-3.5); Glucose 239 mg/dL (83-110); Potassium 5.9 mmol/L (3.5-5.1); Protein, Total 7.2 g/dL (5.8-8.1); Sodium 137 mmol/L (136-145)
[2020-11-09 13:35] LABS: Bilirubin Negative (Negative); Blood, Urine Negative (Negative); Clarity Clear (Clear); Glucose, Urine (Dipstick) 100 mg/dL (Negative); Ketone, Urine Negative (Negative); Leukocyte Negative (Negative); Nitrite Negative (Negative); Protein, Urine (Dipstick) Negative (Neg-Trace); Urobilinogen 0.2 mg/dL (Less than 2); pH, Urine 6.5 (5.0-9.0)
[2020-11-09] MEDS ORDERED: Sodium Chloride 0.9% 1,000 ML ONE (14:00)
[2020-11-09] MEDS ORDERED: Insulin Regular 300 UNITS/3 ML VIAL ONE (14:00)
[2020-11-09] MEDS ORDERED: Albuterol Sulfate 2.5 mg/0.5 ml Neb ONE (14:59)
== END 2020-11-09 16:30 | disposition short-term general hospital (02) ==
LOC: MADERS 12:21
DX: E87.5 Hyperkalemia (principal); E03.9 Hypothyroidism, unspecified; E78.5 Hyperlipidemia, unspecified; E78.00 Pure hypercholesterolemia, unspecified; I10 Essential (primary) hypertension; E11.40 Type 2 diabetes mellitus with diabetic neuropathy, unspecified; Z79.4 Long term (current) use of insulin; Z79.82 Long term (current) use of aspirin; Z79.899 Other long term (current) drug therapy
CPT/HCPCS: 36415; 80053; 81003; 85025; 93005; 96374; J1815; J7050; J7611

== ENCOUNTER 2020-11-30 16:34 | Inpatient (IN) | payer MEDICARE ==
[2020-11-30 17:47] VITALS: BMI 30.5
[2020-11-30] MEDS ORDERED: Dextrose 50% Abboject 50 ML SYRINGE SLOW IVP PRN (18:35)
[2020-11-30] MEDS ORDERED: Polyethylene Glycol 3350 17 GM Packet PO PRN (18:48)
[2020-11-30] MEDS ORDERED: Calcium Carbonate 500 MG ChewTAB PO PRN (18:48)
[2020-11-30] MEDS ORDERED: Acetaminophen 325 MG TAB PO PRN (18:48)
[2020-11-30] MEDS ORDERED: Zinc Oxide 20% Oint 30 GM TUBE TOP PRN (18:48)
[2020-11-30] MEDS ORDERED: Melatonin 3 MG TAB PO PRN (18:48)
[2020-11-30] MEDS ORDERED: Bisacodyl 10 MG SUPP PR PRN (18:48)
[2020-11-30] MEDS ORDERED: Docusate 100 MG CAP PO SCH (19:15)
[2020-11-30] MEDS: Aspirin 81 mg Enteric Coated Tablet PO SCH (21:06)
[2020-11-30] MEDS: Famotidine 20 MG TAB PO SCH (21:06)
[2020-11-30] MEDS: Amlodipine 5 MG TAB PO SCH (21:06)
[2020-11-30] MEDS: Mirtazapine 15 MG TAB PO SCH (21:06)
[2020-11-30] MEDS: Lantus 1000 UNITS/10 ML VIAL SC SCH (21:07)
[2020-11-30] MEDS: Gabapentin 300 MG CAP PO SCH (21:07)
[2020-12-01 05:21] LABS: #Eosinphils 0.4 thou/uL (0.0-0.7); #Lymphocytes 1.6 thou/uL (1.20-3.40); #Monocytes 0.4 thou/uL (0.11-0.59); #Neutrophils 3.6 thou/uL (1.40-6.50); %Basophils 0.8 % (0.0-1.0); %Eosinophils 6.1 % (0.0-10.0); %Lymphocytes 26.8 % (21.0-51.0); %Monocytes 6.4 % (0.0-10.0); Hemoglobin 10.7 g/dL (12.0-16.0); Mean Corpuscular HGB CONC 30.9 g/dL (32.0-36.0); Mean Corpuscular Hemoglobin 30.3 pg (27.0-31.0); Platelet Count 206 thou/uL (130-400); RBC Distribution Width 13.8 % (11.5-14.5); Red Blood Cell (RBC) Count 3.53 mill/uL (4.20-5.40)
[2020-12-01 05:34] LABS: ALT (SGPT) 7 U/L (8-55); AST (SGOT) 15 U/L (5-34); Alkaline Phosphatase 83 U/L (40-110); Anion Gap 11 mmol/L (10-20); BUN (Urea Nitrogen) 23 mg/dL (9.8-20.1); Bilirubin, Total 0.3 mg/dL (0.2-1.2); Calc. Creatinine Clearance 49 mL/min (70-130); Calcium 9.2 mg/dL (7.8-10.44); Carbon Dioxide 32 mmol/L (23-31); Chloride 100 mmol/L (98-107); Globulin 3.4 g/dL (2.4-3.5); Glucose 219 mg/dL (83-110); Potassium 4.1 mmol/L (3.5-5.1); Protein, Total 6.4 g/dL (5.8-8.1); Sodium 139 mmol/L (136-145)
[2020-12-01] MEDS: Levothyroxine Sodium 88 MCG TAB PO SCH (06:04)
[2020-12-01] MEDS: Aspirin 81 mg Enteric Coated Tablet PO SCH ×2 (08:36→20:17)
[2020-12-01] MEDS: Ferrous Sulfate 325 MG TAB PO SCH (08:36)
[2020-12-01] MEDS: Docusate 100 MG CAP PO SCH (08:36)
[2020-12-01] MEDS: Gabapentin 300 MG CAP PO SCH ×2 (08:36→20:18)
[2020-12-01] MEDS: Famotidine 20 MG TAB PO SCH ×2 (08:37→20:19)
[2020-12-01] MEDS ORDERED: Nystatin Powder 15 GM BOT TOP PRN (09:04)
[2020-12-01] MEDS ORDERED: Floranex Packet PO SCH (09:30)
[2020-12-01] MEDS: Magnesium Oxide 400 MG TAB PO SCH (12:09)
[2020-12-01] MEDS: Metoprolol Tartrate 25 MG TAB PO SCH (12:09)
[2020-12-01] MEDS: HumaLOG 300 UNITS/3 ML VIAL SC PRN ×2 (12:18→16:52)
[2020-12-01] MEDS: Amlodipine 5 MG TAB PO SCH (20:17)
[2020-12-01] MEDS: Mirtazapine 15 MG TAB PO SCH (20:20)
[2020-12-01] MEDS: Lantus 1000 UNITS/10 ML VIAL SC SCH (20:22)
[2020-12-02] MEDS: Levothyroxine Sodium 88 MCG TAB PO SCH (05:03)
[2020-12-02 08:15] VITALS: BP 124/62; TEMP 97.6
[2020-12-02] MEDS: Docusate 100 MG CAP PO SCH (08:22)
[2020-12-02] MEDS: Aspirin 81 mg Enteric Coated Tablet PO SCH (08:22)
[2020-12-02] MEDS: Gabapentin 300 MG CAP PO SCH (08:22)
[2020-12-02] MEDS: Ferrous Sulfate 325 MG TAB PO SCH (08:23)
[2020-12-02] MEDS: Famotidine 20 MG TAB PO SCH (08:23)
[2020-12-02] MEDS ORDERED: Floranex Packet PO SCH (09:00)
[2020-12-02] MEDS: HumaLOG 300 UNITS/3 ML VIAL SC PRN (12:24)
[2020-12-02] MEDS: Magnesium Oxide 400 MG TAB PO SCH (12:24)
[2020-12-02] MEDS: Metoprolol Tartrate 25 MG TAB PO SCH (12:24)
== END 2020-12-02 15:45 | disposition short-term general hospital (02) | DRG 690 ==
LOC: MADMS 17:41
PROVIDERS: ADMIT Family Medicine; ATTEND Family Medicine
DX: N39.0 Urinary tract infection, site not specified (principal); R53.81 Other malaise; I25.10 Atherosclerotic heart disease of native coronary artery without angina pectoris; E03.9 Hypothyroidism, unspecified; E11.42 Type 2 diabetes mellitus with diabetic polyneuropathy; N18.31 Chronic kidney disease, stage 3a; Z96.642 Presence of left artificial hip joint; F41.1 Generalized anxiety disorder; E11.22 Type 2 diabetes mellitus with diabetic chronic kidney disease; R44.1 Visual hallucinations; E78.2 Mixed hyperlipidemia; I12.9 Hypertensive chronic kidney disease with stage 1 through stage 4 chronic kidney disease, or unspecified chronic kidney disease; Z88.5 Allergy status to narcotic agent; Z88.0 Allergy status to penicillin; Z88.8 Allergy status to other drugs, medicaments and biological substances; Z79.4 Long term (current) use of insulin; Z79.899 Other long term (current) drug therapy; Z90.710 Acquired absence of both cervix and uterus; Z90.49 Acquired absence of other specified parts of digestive tract; Z98.890 Other specified postprocedural states
CPT/HCPCS: 36415; 36416; 80053; 85025; J1815

== ENCOUNTER 2020-12-02 15:43 | Emergency (ER) | payer MEDICARE ==
[2020-12-02 16:24] LABS: #Basophils 0.1 thou/uL (0.0-0.2); #Eosinphils 0.3 thou/uL (0.0-0.7); #Lymphocytes 2.1 thou/uL (1.20-3.40); #Monocytes 0.6 thou/uL (0.11-0.59); #Neutrophils 4.7 thou/uL (1.40-6.50); %Basophils 0.8 % (0.0-1.0); %Eosinophils 3.6 % (0.0-10.0); %Lymphocytes 26.9 % (21.0-51.0); %Monocytes 7.6 % (0.0-10.0); %Neutrophils 61.1 % (42.0-75.0); Hemoglobin 9.8 g/dL (12.0-16.0); Mean Corpuscular HGB CONC 29.5 g/dL (32.0-36.0); Mean Corpuscular Hemoglobin 29.1 pg (27.0-31.0); Mean Corpuscular Volume 98.6 fL (78.0-98.0); Mean Platelet Volume 7.5 fL (7.4-10.4); Platelet Count 162 thou/uL (130-400); RBC Distribution Width 13.9 % (11.5-14.5); Red Blood Cell (RBC) Count 3.36 mill/uL (4.20-5.40); White Blood Cell (WBC) Count 7.7 thou/uL (4.8-10.8)
[2020-12-02 16:35] LABS: ALT (SGPT) Less than 7 U/L (8-55); AST (SGOT) 16 U/L (5-34); Albumin 3.1 g/dL (3.4-4.8); Alkaline Phosphatase 84 U/L (40-110); Anion Gap 15 mmol/L (10-20); BUN (Urea Nitrogen) 29 mg/dL (9.8-20.1); Bilirubin, Total 0.4 mg/dL (0.2-1.2); CK (CPK) 14 U/L (29-168); Calc. Creatinine Clearance 0 mL/min (70-130); Calcium 8.6 mg/dL (7.8-10.44); Carbon Dioxide 26 mmol/L (23-31); Chloride 101 mmol/L (98-107); Globulin 3.2 g/dL (2.4-3.5); Glucose 143 mg/dL (83-110); Potassium 4.8 mmol/L (3.5-5.1); Protein, Total 6.3 g/dL (5.8-8.1); Sodium 137 mmol/L (136-145)
[2020-12-02 17:16] LABS: CKMB 0.8 ng/mL (0-6.6)
== END 2020-12-02 18:39 | disposition short-term general hospital (02) ==
LOC: MADERS 15:43
DX: R00.1 Bradycardia, unspecified (principal); E03.9 Hypothyroidism, unspecified; E78.5 Hyperlipidemia, unspecified; E78.00 Pure hypercholesterolemia, unspecified; I10 Essential (primary) hypertension; E11.40 Type 2 diabetes mellitus with diabetic neuropathy, unspecified; Z86.73 Personal history of transient ischemic attack (TIA), and cerebral infarction without residual deficits
CPT/HCPCS: 71045; 80053; 82550; 82553; 83880; 84484; 85025; 93005; 94760

== ENCOUNTER 2020-12-07 13:56 | Inpatient (IN) | payer MEDICARE ==
[2020-12-07 14:10] VITALS: BMI 29.2
[2020-12-07] MEDS ORDERED: Acetaminophen 325 MG TAB PO PRN (15:41)
[2020-12-07] MEDS ORDERED: Ondansetron ODT 4 MG TAB PO PRN (15:41)
[2020-12-07] MEDS ORDERED: Bisacodyl 5 MG TAB PO PRN (15:41)
[2020-12-07] MEDS ORDERED: Senokot S 8.6-50 MG TAB PO PRN (15:41)
[2020-12-07] MEDS ORDERED: Zinc Oxide 20% Oint 30 GM TUBE TOP PRN (15:43)
[2020-12-07] MEDS ORDERED: Calcium Carbonate 500 MG ChewTAB PO PRN (15:43)
[2020-12-07] MEDS ORDERED: Melatonin 3 MG TAB PO PRN (15:43)
[2020-12-07] MEDS ORDERED: Dextrose 50% Abboject 50 ML SYRINGE IVP PRN (16:45)
[2020-12-07] MEDS ORDERED: Dextrose 5% in Water 1,000 ML IV PRN (16:45)
[2020-12-07] MEDS ORDERED: HumaLOG 300 UNITS/3 ML VIAL SC SCH (17:00)
[2020-12-07] MEDS: Aspirin 81 mg Enteric Coated Tablet PO SCH (21:05)
[2020-12-07] MEDS: Famotidine 20 MG TAB PO SCH (21:05)
[2020-12-07] MEDS: Atorvastatin Calcium 10 MG TAB PO SCH (21:05)
[2020-12-07] MEDS: hydrALAZINE 25 MG TAB PO SCH (21:06)
[2020-12-07] MEDS: Mirtazapine 15 MG TAB PO SCH (21:06)
[2020-12-07] MEDS: Lantus 1000 UNITS/10 ML VIAL SC SCH (21:06)
[2020-12-08] MEDS: Levothyroxine Sodium 100 MCG TAB PO SCH (05:26)
[2020-12-08] MEDS ORDERED: HumaLOG 300 UNITS/3 ML VIAL SC SCH ×2 (08:00→12:00)
[2020-12-08] MEDS: Ferrous Sulfate 325 MG TAB PO SCH (08:41)
[2020-12-08] MEDS: Losartan 25 MG TAB PO SCH (08:41)
[2020-12-08] MEDS: Docusate 100 MG CAP PO SCH (08:41)
[2020-12-08] MEDS: hydrALAZINE 25 MG TAB PO SCH ×2 (08:41→21:56)
[2020-12-08] MEDS: Aspirin 81 mg Enteric Coated Tablet PO SCH ×2 (08:41→21:55)
[2020-12-08] MEDS: Magnesium Oxide 400 MG TAB PO SCH (12:21)
[2020-12-08] MEDS: HumaLOG 300 UNITS/3 ML VIAL SC PRN ×2 (12:24→17:07)
[2020-12-08] MEDS ORDERED: Ibuprofen 400 MG TAB PO PRN (21:51)
[2020-12-08] MEDS: Famotidine 20 MG TAB PO SCH (21:55)
[2020-12-08] MEDS: Atorvastatin Calcium 10 MG TAB PO SCH (21:55)
[2020-12-08] MEDS: Mirtazapine 15 MG TAB PO SCH (21:57)
[2020-12-08] MEDS: Lantus 1000 UNITS/10 ML VIAL SC SCH (21:58)
[2020-12-09] MEDS: Levothyroxine Sodium 100 MCG TAB PO SCH (05:52)
[2020-12-09] MEDS: Docusate 100 MG CAP PO SCH (08:52)
[2020-12-09] MEDS: Aspirin 81 mg Enteric Coated Tablet PO SCH ×2 (08:52→21:05)
[2020-12-09] MEDS: Ferrous Sulfate 325 MG TAB PO SCH (08:52)
[2020-12-09] MEDS: hydrALAZINE 25 MG TAB PO SCH ×2 (08:54→21:04)
[2020-12-09] MEDS: Losartan 25 MG TAB PO SCH (08:54)
[2020-12-09] MEDS: Magnesium Oxide 400 MG TAB PO SCH (11:58)
[2020-12-09] MEDS: HumaLOG 300 UNITS/3 ML VIAL SC PRN ×2 (11:58→17:29)
[2020-12-09] MEDS: Nystatin Powder 15 GM BOT TOP SCH ×2 (14:02→21:06)
[2020-12-09] MEDS: Polyethylene Glycol 3350 17 GM Packet PO PRN (17:31)
[2020-12-09] MEDS: Lantus 1000 UNITS/10 ML VIAL SC SCH (21:03)
[2020-12-09] MEDS: Atorvastatin Calcium 10 MG TAB PO SCH (21:04)
[2020-12-09] MEDS: Mirtazapine 15 MG TAB PO SCH (21:04)
[2020-12-09] MEDS: Famotidine 20 MG TAB PO SCH (21:04)
[2020-12-10] MEDS: Levothyroxine Sodium 100 MCG TAB PO SCH (05:31)
[2020-12-10] MEDS: Ferrous Sulfate 325 MG TAB PO SCH (08:47)
[2020-12-10] MEDS: Aspirin 81 mg Enteric Coated Tablet PO SCH ×2 (08:47→20:34)
[2020-12-10] MEDS: Polyethylene Glycol 3350 17 GM Packet PO PRN (08:47)
[2020-12-10] MEDS: Docusate 100 MG CAP PO SCH (08:47)
[2020-12-10] MEDS: hydrALAZINE 25 MG TAB PO SCH ×2 (08:47→20:35)
[2020-12-10] MEDS: Losartan 25 MG TAB PO SCH (08:48)
[2020-12-10] MEDS: Nystatin Powder 15 GM BOT TOP SCH ×2 (08:53→20:36)
[2020-12-10] MEDS: Magnesium Oxide 400 MG TAB PO SCH (12:07)
[2020-12-10] MEDS: HumaLOG 300 UNITS/3 ML VIAL SC PRN (12:33)
[2020-12-10] MEDS: Famotidine 20 MG TAB PO SCH (20:34)
[2020-12-10] MEDS: Atorvastatin Calcium 10 MG TAB PO SCH (20:34)
[2020-12-10] MEDS: Mirtazapine 15 MG TAB PO SCH (20:35)
[2020-12-10] MEDS: Lantus 1000 UNITS/10 ML VIAL SC SCH (20:35)
[2020-12-11] MEDS: Levothyroxine Sodium 100 MCG TAB PO SCH (05:43)
[2020-12-11] MEDS: Docusate 100 MG CAP PO SCH (07:53)
[2020-12-11] MEDS: Aspirin 81 mg Enteric Coated Tablet PO SCH ×2 (07:53→21:43)
[2020-12-11] MEDS: Losartan 25 MG TAB PO SCH (07:53)
[2020-12-11] MEDS: hydrALAZINE 25 MG TAB PO SCH ×2 (07:53→21:43)
[2020-12-11] MEDS: Ferrous Sulfate 325 MG TAB PO SCH (07:53)
[2020-12-11] MEDS: Nystatin Powder 15 GM BOT TOP SCH ×2 (07:54→21:44)
[2020-12-11] MEDS: Magnesium Oxide 400 MG TAB PO SCH (11:58)
[2020-12-11] MEDS: HumaLOG 300 UNITS/3 ML VIAL SC PRN (11:58)
[2020-12-11] MEDS: Mirtazapine 15 MG TAB PO SCH (21:43)
[2020-12-11] MEDS: Atorvastatin Calcium 10 MG TAB PO SCH (21:43)
[2020-12-11] MEDS: Famotidine 20 MG TAB PO SCH (21:43)
[2020-12-11] MEDS: Lantus 1000 UNITS/10 ML VIAL SC SCH (21:45)
[2020-12-12] MEDS: Levothyroxine Sodium 100 MCG TAB PO SCH (05:17)
[2020-12-12] MEDS: Ferrous Sulfate 325 MG TAB PO SCH (08:31)
[2020-12-12] MEDS: Docusate 100 MG CAP PO SCH (08:31)
[2020-12-12] MEDS: Aspirin 81 mg Enteric Coated Tablet PO SCH ×2 (08:31→21:35)
[2020-12-12] MEDS: Losartan 25 MG TAB PO SCH (08:31)
[2020-12-12] MEDS: hydrALAZINE 25 MG TAB PO SCH ×2 (08:31→21:35)
[2020-12-12] MEDS: Nystatin Powder 15 GM BOT TOP SCH ×2 (08:32→21:00)
[2020-12-12] MEDS: Magnesium Oxide 400 MG TAB PO SCH (12:10)
[2020-12-12] MEDS: HumaLOG 300 UNITS/3 ML VIAL SC PRN (17:04)
[2020-12-12] MEDS: Lantus 1000 UNITS/10 ML VIAL SC SCH (21:34)
[2020-12-12] MEDS: Atorvastatin Calcium 10 MG TAB PO SCH (21:35)
[2020-12-12] MEDS: Famotidine 20 MG TAB PO SCH (21:35)
[2020-12-12] MEDS: Mirtazapine 15 MG TAB PO SCH (21:35)
[2020-12-13] MEDS: Levothyroxine Sodium 100 MCG TAB PO SCH (05:43)
[2020-12-13] MEDS: Docusate 100 MG CAP PO SCH (09:12)
[2020-12-13] MEDS: Ferrous Sulfate 325 MG TAB PO SCH (09:12)
[2020-12-13] MEDS: Aspirin 81 mg Enteric Coated Tablet PO SCH ×2 (09:12→20:39)
[2020-12-13] MEDS: Losartan 25 MG TAB PO SCH (09:12)
[2020-12-13] MEDS: hydrALAZINE 25 MG TAB PO SCH ×2 (09:13→20:40)
[2020-12-13] MEDS: Nystatin Powder 15 GM BOT TOP SCH ×2 (09:14→20:41)
[2020-12-13] MEDS: Magnesium Oxide 400 MG TAB PO SCH (12:01)
[2020-12-13] MEDS: HumaLOG 300 UNITS/3 ML VIAL SC PRN (12:01)
[2020-12-13] MEDS: Famotidine 20 MG TAB PO SCH (20:39)
[2020-12-13] MEDS: Mirtazapine 15 MG TAB PO SCH (20:39)
[2020-12-13] MEDS: Lantus 1000 UNITS/10 ML VIAL SC SCH (20:47)
[2020-12-14] MEDS: Levothyroxine Sodium 100 MCG TAB PO SCH (05:24)
[2020-12-14] MEDS: Aspirin 81 mg Enteric Coated Tablet PO SCH ×2 (08:57→20:05)
[2020-12-14] MEDS: Docusate 100 MG CAP PO SCH (08:57)
[2020-12-14] MEDS: Ferrous Sulfate 325 MG TAB PO SCH (08:57)
[2020-12-14] MEDS: hydrALAZINE 25 MG TAB PO SCH ×2 (09:03→20:06)
[2020-12-14] MEDS: Losartan 25 MG TAB PO SCH (09:04)
[2020-12-14] MEDS: Nystatin Powder 15 GM BOT TOP SCH ×2 (09:06→20:10)
[2020-12-14] MEDS: Magnesium Oxide 400 MG TAB PO SCH (12:09)
[2020-12-14] MEDS: HumaLOG 300 UNITS/3 ML VIAL SC PRN ×2 (12:23→17:24)
[2020-12-14] MEDS: Mirtazapine 15 MG TAB PO SCH (20:06)
[2020-12-14] MEDS: Atorvastatin Calcium 10 MG TAB PO SCH (20:07)
[2020-12-14] MEDS: Famotidine 20 MG TAB PO SCH (20:07)
[2020-12-14] MEDS: Lantus 1000 UNITS/10 ML VIAL SC SCH (20:41)
[2020-12-15] MEDS: Levothyroxine Sodium 100 MCG TAB PO SCH (05:21)
[2020-12-15] MEDS: hydrALAZINE 25 MG TAB PO SCH ×2 (08:50→20:42)
[2020-12-15] MEDS: Aspirin 81 mg Enteric Coated Tablet PO SCH ×2 (08:50→20:41)
[2020-12-15] MEDS: Ferrous Sulfate 325 MG TAB PO SCH (08:50)
[2020-12-15] MEDS: Nystatin Powder 15 GM BOT TOP SCH ×2 (08:51→20:44)
[2020-12-15] MEDS: Losartan 25 MG TAB PO SCH (08:51)
[2020-12-15] MEDS: Docusate 100 MG CAP PO SCH (08:51)
[2020-12-15] MEDS: HumaLOG 300 UNITS/3 ML VIAL SC PRN (12:15)
[2020-12-15] MEDS: Magnesium Oxide 400 MG TAB PO SCH (12:15)
[2020-12-15] MEDS: Atorvastatin Calcium 10 MG TAB PO SCH (20:42)
[2020-12-15] MEDS: Famotidine 20 MG TAB PO SCH (20:42)
[2020-12-15] MEDS: Mirtazapine 15 MG TAB PO SCH (20:43)
[2020-12-15] MEDS: Lantus 1000 UNITS/10 ML VIAL SC SCH (20:46)
[2020-12-16] MEDS: Levothyroxine Sodium 100 MCG TAB PO SCH (05:12)
[2020-12-16] MEDS: Ferrous Sulfate 325 MG TAB PO SCH (09:26)
[2020-12-16] MEDS: Aspirin 81 mg Enteric Coated Tablet PO SCH ×2 (09:26→20:45)
[2020-12-16] MEDS: Docusate 100 MG CAP PO SCH (09:27)
[2020-12-16] MEDS: Nystatin Powder 15 GM BOT TOP SCH ×2 (09:27→20:46)
[2020-12-16] MEDS: Losartan 25 MG TAB PO SCH (09:27)
[2020-12-16] MEDS: hydrALAZINE 25 MG TAB PO SCH ×2 (09:27→20:45)
[2020-12-16] MEDS: Magnesium Oxide 400 MG TAB PO SCH (12:33)
[2020-12-16] MEDS: HumaLOG 300 UNITS/3 ML VIAL SC PRN ×2 (12:35→17:02)
[2020-12-16] MEDS: Polyethylene Glycol 3350 17 GM Packet PO PRN (17:00)
[2020-12-16] MEDS: Atorvastatin Calcium 10 MG TAB PO SCH (20:45)
[2020-12-16] MEDS: Famotidine 20 MG TAB PO SCH (20:45)
[2020-12-16] MEDS: Mirtazapine 15 MG TAB PO SCH (20:46)
[2020-12-16] MEDS: Lantus 1000 UNITS/10 ML VIAL SC SCH (20:47)
[2020-12-17] MEDS: Levothyroxine Sodium 100 MCG TAB PO SCH (05:09)
[2020-12-17] MEDS: Nystatin Powder 15 GM BOT TOP SCH ×2 (07:30→21:07)
[2020-12-17] MEDS: HumaLOG 300 UNITS/3 ML VIAL SC PRN ×3 (07:43→17:12)
[2020-12-17] MEDS: Ferrous Sulfate 325 MG TAB PO SCH (07:43)
[2020-12-17] MEDS: Aspirin 81 mg Enteric Coated Tablet PO SCH ×2 (10:00→20:36)
[2020-12-17] MEDS: Losartan 25 MG TAB PO SCH (10:00)
[2020-12-17] MEDS: hydrALAZINE 25 MG TAB PO SCH ×2 (10:00→20:36)
[2020-12-17] MEDS: Docusate 100 MG CAP PO SCH (10:00)
[2020-12-17] MEDS: Magnesium Oxide 400 MG TAB PO SCH (11:55)
[2020-12-17] MEDS: Famotidine 20 MG TAB PO SCH (20:36)
[2020-12-17] MEDS: Atorvastatin Calcium 10 MG TAB PO SCH (20:36)
[2020-12-17] MEDS: Lantus 1000 UNITS/10 ML VIAL SC SCH (20:37)
[2020-12-17] MEDS: Mirtazapine 15 MG TAB PO SCH (20:37)
[2020-12-18] MEDS: Levothyroxine Sodium 100 MCG TAB PO SCH (05:35)
[2020-12-18] MEDS: Polyethylene Glycol 3350 17 GM Packet PO PRN (08:10)
[2020-12-18] MEDS: Aspirin 81 mg Enteric Coated Tablet PO SCH ×2 (08:10→20:40)
[2020-12-18] MEDS: Ferrous Sulfate 325 MG TAB PO SCH (08:10)
[2020-12-18] MEDS: hydrALAZINE 25 MG TAB PO SCH ×2 (08:10→20:41)
[2020-12-18] MEDS: Docusate 100 MG CAP PO SCH (08:10)
[2020-12-18] MEDS: Losartan 25 MG TAB PO SCH (08:12)
[2020-12-18] MEDS: HumaLOG 300 UNITS/3 ML VIAL SC PRN ×3 (08:13→17:24)
[2020-12-18] MEDS: Nystatin Powder 15 GM BOT TOP SCH ×2 (08:13→20:41)
[2020-12-18] MEDS ORDERED: Losartan Potassium 50 MG TAB PO SCH (09:00)
[2020-12-18] MEDS: Magnesium Oxide 400 MG TAB PO SCH (12:38)
[2020-12-18] MEDS: Atorvastatin Calcium 10 MG TAB PO SCH (20:40)
[2020-12-18] MEDS: Famotidine 20 MG TAB PO SCH (20:41)
[2020-12-18] MEDS: Mirtazapine 15 MG TAB PO SCH (20:41)
[2020-12-18] MEDS: Lantus 1000 UNITS/10 ML VIAL SC SCH (20:42)
[2020-12-19] MEDS: Levothyroxine Sodium 100 MCG TAB PO SCH (05:35)
[2020-12-19] MEDS: HumaLOG 300 UNITS/3 ML VIAL SC PRN ×3 (08:00→16:55)
[2020-12-19] MEDS: hydrALAZINE 25 MG TAB PO SCH ×2 (08:34→21:29)
[2020-12-19] MEDS: Ferrous Sulfate 325 MG TAB PO SCH (08:34)
[2020-12-19] MEDS: Aspirin 81 mg Enteric Coated Tablet PO SCH ×2 (08:34→21:29)
[2020-12-19] MEDS: Docusate 100 MG CAP PO SCH (08:34)
[2020-12-19] MEDS: Losartan 25 MG TAB PO SCH (08:35)
[2020-12-19] MEDS: Nystatin Powder 15 GM BOT TOP SCH ×2 (08:36→21:30)
[2020-12-19] MEDS: Polyethylene Glycol 3350 17 GM Packet PO PRN (08:36)
[2020-12-19] MEDS: Magnesium Oxide 400 MG TAB PO SCH (12:31)
[2020-12-19] MEDS: Famotidine 20 MG TAB PO SCH (21:29)
[2020-12-19] MEDS: Atorvastatin Calcium 10 MG TAB PO SCH (21:29)
[2020-12-19] MEDS: Lantus 1000 UNITS/10 ML VIAL SC SCH (21:30)
[2020-12-19] MEDS: Mirtazapine 15 MG TAB PO SCH (21:30)
[2020-12-20] MEDS: Levothyroxine Sodium 100 MCG TAB PO SCH (05:16)
[2020-12-20] MEDS: Losartan 25 MG TAB PO SCH (07:00)
[2020-12-20] MEDS: hydrALAZINE 25 MG TAB PO SCH ×4 (07:00→21:08)
[2020-12-20] MEDS ORDERED: hydrALAZINE 25 MG TAB PO SCH (07:30)
[2020-12-20] MEDS: Docusate 100 MG CAP PO SCH (08:13)
[2020-12-20] MEDS: Ferrous Sulfate 325 MG TAB PO SCH (08:13)
[2020-12-20] MEDS: Aspirin 81 mg Enteric Coated Tablet PO SCH ×2 (08:13→21:07)
[2020-12-20] MEDS: Nystatin Powder 15 GM BOT TOP SCH ×2 (08:14→21:11)
[2020-12-20] MEDS: Polyethylene Glycol 3350 17 GM Packet PO PRN (08:24)
[2020-12-20] MEDS: Magnesium Oxide 400 MG TAB PO SCH (12:10)
[2020-12-20] MEDS: HumaLOG 300 UNITS/3 ML VIAL SC PRN ×2 (12:10→17:46)
[2020-12-20] MEDS ORDERED: Lorazepam 0.5 MG TAB PO PRN (19:03)
[2020-12-20] MEDS: Lantus 1000 UNITS/10 ML VIAL SC SCH (21:08)
[2020-12-20] MEDS: Famotidine 20 MG TAB PO SCH (21:08)
[2020-12-20] MEDS: Atorvastatin Calcium 10 MG TAB PO SCH (21:08)
[2020-12-20] MEDS: Mirtazapine 15 MG TAB PO SCH (21:10)
[2020-12-21] MEDS: Levothyroxine Sodium 100 MCG TAB PO SCH (05:43)
[2020-12-21] MEDS: HumaLOG 300 UNITS/3 ML VIAL SC PRN ×2 (08:23→11:57)
[2020-12-21] MEDS: Losartan 25 MG TAB PO SCH (08:26)
[2020-12-21] MEDS: Aspirin 81 mg Enteric Coated Tablet PO SCH (08:26)
[2020-12-21] MEDS: Ferrous Sulfate 325 MG TAB PO SCH (08:27)
[2020-12-21] MEDS: hydrALAZINE 25 MG TAB PO SCH (08:27)
[2020-12-21] MEDS: Nystatin Powder 15 GM BOT TOP SCH (08:27)
[2020-12-21] MEDS: Docusate 100 MG CAP PO SCH (10:15)
[2020-12-21] MEDS: Magnesium Oxide 400 MG TAB PO SCH (11:58)
[2020-12-21 12:17] VITALS: BP 147/62; TEMP 97.7
== END 2020-12-21 13:45 | disposition home health service (06) | DRG 948 ==
LOC: MADMS 13:56
PROVIDERS: ADMIT Family Medicine; ATTEND Family Medicine
DX: R53.81 Other malaise (principal); N39.0 Urinary tract infection, site not specified; F32.1 Major depressive disorder, single episode, moderate; E11.40 Type 2 diabetes mellitus with diabetic neuropathy, unspecified; I25.10 Atherosclerotic heart disease of native coronary artery without angina pectoris; R00.1 Bradycardia, unspecified; E03.9 Hypothyroidism, unspecified; Z96.642 Presence of left artificial hip joint; E11.22 Type 2 diabetes mellitus with diabetic chronic kidney disease; N18.31 Chronic kidney disease, stage 3a; I12.9 Hypertensive chronic kidney disease with stage 1 through stage 4 chronic kidney disease, or unspecified chronic kidney disease; F41.1 Generalized anxiety disorder; R44.1 Visual hallucinations; E78.2 Mixed hyperlipidemia; R26.81 Unsteadiness on feet; E87.5 Hyperkalemia; Z95.5 Presence of coronary angioplasty implant and graft; Z88.5 Allergy status to narcotic agent; Z88.0 Allergy status to penicillin; Z88.8 Allergy status to other drugs, medicaments and biological substances; Z90.710 Acquired absence of both cervix and uterus; Z90.49 Acquired absence of other specified parts of digestive tract; Z98.890 Other specified postprocedural states; Z79.4 Long term (current) use of insulin
CPT/HCPCS: 36416; J1815; Q0162